=== PATIENT | female | born 1970 | race Caucasian/White ===

== ENCOUNTER 2021-06-20 13:32 | Outpatient (RCR) | payer MEDICARE, SELFPAY ==
--- NOTE | 2021-06-20 14:31 | PCPTNOTE ---
pt to dept for PT evaluation. She has an open wound on both legs: removed marla wrap from R LE: R dorsum of foot wound ~ distal 1/2, superficial and red, with drainage over marla wrap along lower leg and top foot; wrap was too tight and left indentations on her leg. pt stated wound over L calf--was not viewed by PT, had marla wrap over lower leg. Education to pt: issued lymphedema handout and discussed basics of PT lymphedema treatment. Discussed with pt Plan to HOLD PT until wounds are healed. Issued my name and number to pt to call for any questions, and when healed, to call for initial evaluation appt; Called Dr office and left a message about holding PT until wounds are healed.
== END 2021-09-03 11:15 | disposition home or self-care (01) ==
LOC: ANHPT 13:32
PROVIDERS: PCP Podiatrist Foot & Ankle Surgery; Visit Provider Podiatrist Foot & Ankle Surgery
DX: I87.311 Chronic venous hypertension (idiopathic) with ulcer of right lower extremity (principal)
CPT/HCPCS: 99199

== ENCOUNTER 2024-09-09 15:59 | Inpatient (IN) | payer MEDICARE, SELFPAY ==
[2024-09-09] VITALS (16 sets, daily range): BP systolic 79–121; BP diastolic 21–77; PULSE 86–130; RESP 16–24; TEMP 37.9; O2SAT 96–100
--- NOTE | ~2024-09-09 | XR_ITS ---
EXAMINATION: XR tibia fibula RT 2V DATE: 09/09/2024 20:02 INDICATION: Right lower leg osteomyelitis. TECHNIQUE: 2 views of right tibia and fibula on 3 radiographs were obtained. COMPARISON: None. FINDINGS: Alignment is normal. No fracture. There is severe right knee osteoarthritis. There is mild midfoot osteoarthritis. IMPRESSION: 1. No evidence of osteomyelitis. 2. Polyarticular osteoarthritis. Reviewed, dictated and finalized at location A. WORK SUPERVISOR
--- NOTE | ~2024-09-09 | XR_ITS ---
EXAMINATION: XR foot LT 2V DATE: 09/09/2024 20:02 INDICATION: Left foot osteomyelitis. TECHNIQUE: 2 views of left foot were obtained. COMPARISON: None. FINDINGS: Bone alignment is normal. No fracture. There is mild osteoarthritis of first metatarsophala ngeal joint and some of the interphalangeal joints and midfoot joints. There are enthesophytes at the posterior and plantar aspects of calcaneal tuberosity. IMPRESSION: 1. No evidence of osteomyelitis. 2. Mild polyarticular osteoarthritis. Reviewed, dictated and finalized at location A. TS ATHLETIC TRAINER
--- NOTE | ~2024-09-09 | CT_ITS ---
EXAMINATION: CT chest abdomen pelvis wo con DATE: 09/09/2024 18:43 INDICATION: Infection. TECHNIQUE: Computed tomography (CT) of the chest, abdomen, and pelvis was performed without intraveno us contrast. Automated exposure control and iterative reconstruction technique were employed. The dos e-length product was 2188.37 mGy-cm. COMPARISON: CT abdomen and pelvis 09/03/2019 FINDINGS: CHEST CT: The lungs demonstrate mild atelectasis. No pleural effusion. The heart size is normal. There are sidra nary artery calcifications. No pericardial effusion. There is mild thoracic spondylosis. ABDOMEN/PELVIS CT: There is diffuse hepatic steatosis. There are changes of cholecystectomy. The spleen, pancreas, adren al glands, and kidneys are normal. There is no urolithiasis. There is diverticulosis of the colon wit hout evidence of diverticulitis. There are changes of appendectomy. There is mild aortocaval, right c ommon and external iliac, and right inguinal lymphadenopathy. There is no ascites. There is mild lumb ar spondylosis. IMPRESSION: 1. Diffuse hepatic steatosis. 2. Mild retroperitoneal and right pelvic lymphadenopathy, likely reactive. Reviewed, dictated and finalized at location A. LEVELER
--- NOTE | ~2024-09-09 | XR_ITS ---
EXAMINATION: XR foot RT 2V DATE: 09/09/2024 20:02 INDICATION: Osteomyelitis. TECHNIQUE: 2 views of right foot were obtained. COMPARISON: None. FINDINGS: Alignment is normal. No fracture. There is mild osteoarthritis of first metatarsophalangeal joint and some of the interphalangeal joints and midfoot joints. There are enthesophytes at the post erior and plantar aspects of calcaneal tuberosity. IMPRESSION: 1. No evidence of osteomyelitis. 2. Mild polyarticular osteoarthritis. Reviewed, dictated and finalized at location A. ICAL REHABILITATION COORDINATOR
--- NOTE | ~2024-09-09 | XR_ITS ---
EXAMINATION: XR tibia fibula LT 2V DATE: 09/09/2024 20:02 INDICATION: Left lower leg osteomyelitis. TECHNIQUE: 2 views of left tibia and fibula on 3 radiographs were obtained. COMPARISON: None. FINDINGS: Bone alignment is normal. No fracture. There is severe left knee osteoarthritis. There is m ild ankle joint osteoarthritis. IMPRESSION: 1. No evidence of osteomyelitis. 2. Polyarticular osteoarthritis. Reviewed, dictated and finalized at location A. OR BRANCH MANAGER
--- NOTE | ~2024-09-09 | XR_ITS ---
EXAMINATION: XR chest 1V portable DATE: 09/09/2024 16:32 INDICATION: Cough. Dyspnea. TECHNIQUE: A single frontal view of the chest was obtained on 2 radiographs. COMPARISON: CT abdomen and pelvis 09/03/2019 FINDINGS: Sensitivity is decreased by obesity. There is chronic mild elevation of right hemidiaphragm . No pneumonia, pleural effusion, or pneumothorax. Cardiomegaly is noted. IMPRESSION: 1. Cardiomegaly. Reviewed, dictated and finalized at location A. HEN ASSISTANT IMPRESSION: 1. Cardiomegaly.
--- OUTSIDE RECORDS SUMMARY | 2024-09-09 16:02 | XMS_ITS | Continuity of Care Document ---
Author Organization [facility] Octaviano TEJADA (Adult Med) Address [address] [place] [address] Care Team Providers Care Pattern Maker Name Role Phone ELLIOTT SHEN OTHER MEGAN CAM Primary Care Provider Unavailabl e Assessment No assessment recorded. Plan of Treatment Reminders Order Date Submit Date Provider Last Modified By Organization Details Last Modified Time Details Appointments ANY 30 2024 02:30P M Megan Cam MD Not available Not available Not available Lab CMP, serum or plasma 2023 024 [facility], [address] [place] [address], [address], [place], [address], 06/15/2024 09:03:21 urinalysi s macro (dipstick ) panel, urine 2023 024 [facility], [address], [address], [place], [address], 06/15/2024 09:03:21 Referral None recorded. Procedures None recorded. Surgeries None recorded. Imaging XR, knee 2023 024 [facility] ([facility]), [address] [place], [address], 06/29/2024 17:45:35 Medication Orders None recorded. Patient TargetsNo targets recorded. Patient InstructionsNo instructions recorded. Reason for Referral None Reported. Results Created Date Observation Date Name Description Value Unit Range Abnormal Flag Note LastModifiedBy Organization Detail LastModifiedTime 06/22/2006/20/2024 XR, chest No observ ation record ed. [facility] () [address] [place], [address], 06/29/2024 09:55:00 06/29/20 24 06/29/2024 XR, knee No observ ation record ed. [facility] [address] [place], [address], 06/30/2024 10:41:14 Result Notes None recorded. Problems Name Problem SNOMED Code Status Onset Date Resolution Date Notes Provider Name and Address Organization Details Recorded Time Diabetes mellitus 84049962 Active 2018 Not Available [facility] 4 02:12:23 [place] - lesion 758358509 Active Not Available [facility] 4 02:12:23 Essential hypertension 75711913 Active Not Available [facility] 4 02:12:23 Chronic obstructive pulmonary disease 52242769 Active Not Available [facility] 4 02:12:23 Tobacco dependence syndrome 51481961 Active Not Available [facility] 4 02:12:23 Morbid obesity 147000260 Active Not Available [facility] 4 02:12:23 Hyperglycemia 92834526 Active Not Available [facility] 4 02:12:23 Metabolic syndrome X 647015329 Active Not Available [facility] 4 02:12:23 Acute bronchitis 47958393 Active Not Available [facility] 4 02:12:22 Postoperative nausea 95433603 Active Not Available [facility] 4 02:12:23 Edema of lower extremity 311644610 Active Not Available [facility] 4 02:12:22 Sleep apnea 28873191 Active Not Available [facility] 4 02:12:23 Calculus of kidney and ureter 075806219 Active Not Available [facility] 4 02:12:23 Notes:Some problems listed i n Documents: #[id number], #[id number], #[id number] could not be added to this patient's chart. Please review these documents and add these problems to the patient's chart manually as needed. Problem Notes None recorded. Procedures Surgical History Date Name Laterality Status Provider Name and Address Organization Details Recorded Time Tonsillectomy completed Errol Heart [facility] 02/07/2015 11:21:42 Dilation and Curettage completed Er[facility] 02/07/2015 11:21:42 Diagnostic colonoscopy completed Errol Heart [facility] 02/07/2015 12:27:38 Imaging Results None recorded. Procedure Notes None recorded. Medical Equipment None Reported. Allergies Allergen ID Allergen Name Allergen Category Reaction Reaction Severity Criticality Documentation Date Start Date Code Code System Note Provider Name and Address Organization Details Recorded Time 017032 erythromy preston medicatio n anaphylax is Not available Not available 02/18/2019 4053 RxNorm ARON Vo, [facility] 9 15:54:34 482879 Substance with sulfonami de structure and antibacte rial mechanism of action (substanc e) medicatio n Not available Not available Not available 02/18/2019 18472 8003 SNOMED ARON Vo, [facility] 9 15:56:14 982972 ciproflox acin medicatio n Not available Not available Not available 02/18/2019 2551 RxNorm ARON Vo, [facility] 9 15:57:20 855210 atorvasta tin medicatio n muscle cramps Not available Not available 07/18/2021 53734 RxNorm ARON Vo, [facility] 1 14:44:01 258220 glipizide medicatio n rash Not available Not available 04/26/20242022 4821 RxNorm Megan Cam MD Attn: Chad cedillo,[address] [place], [address] [place] [address] 4 16:40:00 47895 Erythroci n medicatio n anaphylax is Not available Not available 03/21/2015 97705 3 RxNorm ARON Vo, [facility] 9 15:54:44 Medications Name Sig Start Date Stop Date Status Note LastModified by Organization Details LastModified Time Prescript ion - Prior Authoriza tion Request 11/16 completed Not Available Not Available Not Available losartan 50 mg tablet Take 1 tablet every day by oral route for 30 days. 03/28 completed Not Available Not Available Not Available cyclobenz aprine 10 mg tablet Take 1 tablet as needed by oral route at bedtime for 30 days. 02/16 completed Not Available Not Available Not Available amoxicill in 500 mg capsule 03/28 completed Not Available Not Available Not Available furosemid e 40 mg tablet TAKE 1 TABLET BY MOUTH EVERY DAY DIRECTED 04/26 completed Not Available Not Available Not Available fluconazo le 100 mg tablet 09/06 completed Not Available Not Available Not Available terbinafi ne HCl 1 % topical cream 09/14 completed Not Available Not Available Not Available metformin 500 mg tablet TAKE 1 TABLET BY MOUTH TWICE DAILY AFTER MEALS 08/16 completed Not Available Not Available Not Available terconazo le 0.4 % vaginal cream 09/14 completed Not Available Not Available Not Available Qvar 80 mcg/actua tion Metered Aerosol oral inhaler 2 puffs twice daily. 03/28 completed Not Available Not Available Not Available prednison e 10 mg tablet TAKE 1 TABLET BY MOUTH EVERY OTHER DAY 04/26 completed Not Available Not Available Not Available doxycycli ne hyclate 100 mg capsule TAKE 1 CAPSULE BY MOUTH TWICE DAILY 09/06 completed Not Available Not Available Not Available atorvasta tin 20 mg tablet TAKE 1 TABLET BY MOUTH EVERY DAY AT DINNER 07/18 completed Not Available Not Available Not Available Depo-Medr ol 40 mg/mL suspensio n for injection Injectio n 1 ML IM 11/06 completed Not Available Not Available Not Available loperamid e 2 mg capsule 11/16 completed Not Available Not Available Not Available trazodone 50 mg tablet Take 1 tablet every day by oral route as directed for 30 days. 09/14 completed Not Available Not Available Not Available cetirizin e 10 mg tablet TAKE 1 TABLET BY MOUTH FOUR TIMES DAILY NEEDED FOR ITCHING 04/26 completed Not Available Not Available Not Available cefpodoxi me 200 mg tablet 02/18 completed Not Available Not Available Not Available indapamid e 2.5 mg tablet TAKE 1 TABLET BY MOUTH EVERY DAY 02/15 completed Not Available Not Available Not Available glyburide 5 mg tablet TAKE 1 TABLET BY MOUTH EVERY DAY WITH MEAL 08/12 completed Not Available Not Available Not Available ibuprofen 800 mg tablet 02/16 completed Not Available Not Available Not Available metoprolo l succinate ER 50 mg tablet,ex tended release 24 hr 10/13 completed Not Available Not Available Not Available hydrocodo ne 5 mg-acetam inophen 325 mg tablet TAKE 1 TABLET BY MOUTH EVERY 6 HOURS NEEDED FOR PAIN FOR UP TO 3 DAYS. USE SPARINGL Y active Not Available Not Available No t Available ondansetr on HCl 8 mg tablet TAKE 1 TABLET BY MOUTH EVERY 8 HOURS NEEDED 04/26 completed Not Available Not Available Not Available metronida zole 0.75 % (37.5 mg/5 gram) vaginal gel 09/14 completed Not Available Not Available Not Available ondansetr on HCl 4 mg tablet TAKE 2 TABLETS BY MOUTH TWICE DAILY FOR 5 DAYS NEEDED 04/26 completed Not Available Not Available Not Available glipizide 10 mg tablet TAKE 1 TABLET BY MOUTH EVERY DAY 11/06 completed Not Available Not Available Not Available prednison e 20 mg tablet 02/18 completed Not Available Not Available Not Available metoprolo l succinate ER 100 mg tablet,ex tended release 24 hr TAKE 1 TABLET BY MOUTH EVERY DAY 2023 active Not Available Not Available Not Avai lable clobetaso l 0.05 % topical cream 04/26 completed Not Available Not Available Not Available clindamyc in HCl 150 mg capsule Take 1 capsule every 6 hours by oral route after meals for 7 days. 03/28 completed Not Available Not Available Not Available pioglitaz one 45 mg tablet 09/14 completed Not Available Not Available Not Available acetamino phen 300 mg-codein e 30 mg tablet TAKE 1 TABLET BY MOUTH TWICE DAILY FOR 7 DAYS NEEDED 05/19 completed Not Available Not Available Not Available ciproflox acin 250 mg tablet 02/18 completed Not Available Not Available Not Available ciproflox acin 500 mg tablet TAKE 1 TABLET BY MOUTH TWICE DAILY X 10 DAYS. 05/22 completed Not Available Not Available Not Available sulfameth oxazole 800 mg-trimet hoprim 160 mg tablet Take 1 tablet every 12 hours by oral route after meals for 10 days. 02/16 completed Not Available Not Available Not Available omeprazol e 40 mg capsule,d elayed release TAKE 1 CAPSULE BY MOUTH TWICE DAILY 04/26 completed not in bag of medicati on brought with @ todays visit -l[facility]is [facility]if[facility] 04/26/24 Not Available Not Available Not Available tramadol 50 mg tablet TAKE 1 TABLET BY MOUTH EVERY 12 HOURS NEEDED active Not Available Not Available No t Available triamcino lone acetonide 0.1 % topical cream APPLY A THIN LAYER TO THE AFFECTED AREA(S) BY TOPICAL ROUTE 2 TIMES PER DAY 04/26 completed Not Available Not Available Not Available ondansetr on 8 mg disintegr ating tablet Place 1 tablet by translin gual route as needed for 2 days. 02/18 completed Not Available Not Available Not Available warfarin 4 mg tablet 02/18 completed Not Available Not Available Not Available warfarin 3 mg tablet 09/14 completed Not Available Not Available Not Available ketorolac 10 mg tablet 02/18 completed Not Available Not Available Not Available meloxicam 7.5 mg tablet 02/16 completed Not Available Not Available Not Available oxycodone -acetamin ophen 5 mg-325 mg tablet 03/28 completed Not Available Not Available Not Available magnesium oxide 400 mg (241.3 mg magnesium ) tablet TAKE 1 TABLET BY MOUTH TWICE DAILY 2023 active Not Available Not Available Not Avai lable tamsulosi n 0.4 mg capsule 07/13 completed Not Available Not Available Not Available linezolid 600 mg tablet active Not Available Not Available Not Available dicyclomi ne 20 mg tablet TAKE 1 TABLET BY MOUTH EVERY 6 HOURS NEEDED 04/26 completed not taking Not Available Not Available Not Available phenazopy ridine 100 mg tablet 07/13 completed Not Available Not Available Not Available baclofen 10 mg tablet TAKE 1 TABLET BY MOUTH TWICE DAILY DIRECTED active Not Available Not Available No t Available doxycycli ne monohydra te 100 mg capsule TAKE 1 CAPSULE BY MOUTH TWICE DAILY 04/26 completed Not Available Not Available Not Available prednison e 2.5 mg tablet TAKE 1 TABLET BY MOUTH EVERY OTHER DAY 09/06 completed Not Available Not Available Not Available cephalexi n 500 mg capsule TAKE ONE CAPSULE BY MOUTH THREE TIMES DAILY FOR 10 DAYS 04/26 completed Not Available Not Available Not Available metformin 1,000 mg tablet Take 1 tablet twice a day by oral route as directed for 30 days. 09/14 completed Not Available Not Available Not Available neomycin- polymyxin -dexameth 3.5 mg/mL-10, 000 unit/mL-0 .1% eye drops SHAKE LIQUID AND INSTILL 1 DROP IN BOTH EYES EVERY 2 HOURS WHILE AWAKE FOR 10 DAYS 04/26 completed Not Available Not Available Not Available nystatin 100,000 unit/gram topical cream APPLY TOPICALL Y TO THE AFFECTED AREA TWICE DAILY 06/28 completed Not Available Not Available Not Available lisinopri l 10 mg tablet TAKE 1 TABLET BY MOUTH EVERY DAY 2023 active Not Available Not Available Not Avai lable lidocaine 5 % topical patch APPLY 1 PATCH TOPICALL Y TO THE SKIN DAILY. LEAVE ON MOST PAINFUL AREA FOR UP TO 12 HOURS active Not Available Not Available No t Available warfarin 5 mg tablet 09/14 completed Not Available Not Available Not Available progester one micronize d 200 mg capsule 05/13 completed Not Available Not Available Not Available gabapenti n 300 mg capsule Take 1 capsule 3 times a day by oral route as directed for 30 days. 05/13 completed Not Available Not Available Not Available gentamici n 0.1 % topical cream 05/13 completed Not Available Not Available Not Available bumetanid e 1 mg tablet one tab po q d 2023 active Not Available Not Available Not Avai lable monteluka st 10 mg tablet TAKE 1 TABLET BY MOUTH EVERY NIGHT AT BEDTIME 04/26 completed Not Available Not Available Not Available hydrochlo rothiazid e 25 mg tablet 03/28 completed Not Available Not Available Not Available mupirocin 2 % topical ointment APPLY A SMALL AMOUNT TO THE AFFECTED AREA BY TOPICAL ROUTE 3 TIMES PER DAY 10/13 completed Not Available Not Available Not Available furosemid e 20 mg tablet Take 1 tablet every day by oral route as needed for 30 days. 11/24 completed Not Available Not Available Not Available ergocalci ferol (vitamin D2) 1,250 mcg (50,000 unit) capsule 10/13 completed Not Available Not Available Not Available Cheratuss in AC 10 mg-100 mg/5 mL oral liquid Take 10 mL every 6 hours by oral route as needed for 5 days. 03/28 completed Not Available Not Available Not Available lisinopri l 10 mg-hydroc hlorothia zide 12.5 mg tablet TAKE 1 TABLET BY MOUTH EVERY DAY 10/13 completed Not Available Not Available Not Available levofloxa preston 500 mg tablet 07/13 completed Not Available Not Available Not Available methylpre dnisolone 4 mg tablets in a dose pack 03/28 completed Not Available Not Available Not Available albuterol sulfate HFA 90 mcg/actua tion aerosol inhaler INHALE 2 PUFFS BY MOUTH EVERY 4 HOURS NEEDED FOR RESCUE active Not Available Not Available No t Available pioglitaz one 30 mg tablet TAKE 1 TABLET BY MOUTH EVERY DAY DIRECTED 2023 active Not Available Not Available Not Avai lable hydroxyzi ne HCl 10 mg tablet active Not Available Not Available No t Available ondansetr on 4 mg disintegr ating tablet DISSOLVE 1 TABLET ON THE TONGUE EVERY 8 HOURS NEEDED FOR NAUSEA OR VOMITING active Not Available Not Available No t Available cefdinir 300 mg capsule TAKE 1 CAPSULE BY MOUTH TWICE DAILY 09/06 completed Not Available Not Available Not Available metformin ER 500 mg tablet,ex tended release 24 hr Take 1 tablet every day by oral route for 90 days. 03/28 completed Not Available Not Available Not Available doxycycli ne hyclate 100 mg tablet TAKE 1 TABLET BY MOUTH EVERY DAY 2023 active Not Available Not Available Not Avai lable naproxen 500 mg tablet Take 1 tablet twice a day by oral route after meals for 30 days. 02/18 completed Not Available Not Available Not Available metoclopr amide 10 mg tablet TAKE 1 TABLET BY MOUTH TWICE DAILY DIRECTED 04/26 completed Not Available Not Available Not Available amoxicill in 875 mg-potass ium clavulana te 125 mg tablet TAKE 1 TABLET BY MOUTH EVERY 12 HOURS FOR 10 DAYS 09/06 completed Not Available Not Available Not Available amoxicill in 500 mg-potass ium clavulana te 125 mg tablet Take 1 tablet every 12 hours by oral route with meals for 10 days. 03/28 completed Not Available Not Available Not Available Benadryl 25 mg capsule Take 2 capsules 6 times a day by oral route as needed for 10 days. 03/28 completed Not Available Not Available Not Available Alcohol Prep Pads APPLY 1 PAD EVERY DAY TOPICALL Y TO THE AFFECTED AREA DIRECTED FOR 30 DAYS active Not Available Not Available No t Available nitrofura ntoin monohydra te/macroc rystals 100 mg capsule 05/13 completed Not Available Not Available Not Available Calcium 600 + D(3) 600 mg-5 mcg (200 unit) tablet Take 2 tablets every day by oral route as directed for 30 days. 11/16 completed Not Available Not Available Not Available Oysco 500/D 500 mg-5 mcg (200 unit) tablet TAKE 2 TABLETS BY MOUTH EVERY DAY 2023 active Not Available Not Available Not Avai lable Symbicort 160 mcg-4.5 mcg/actua tion HFA aerosol inhaler Inhale 2 puffs twice a day by inhalati on route as directed for 30 days. 09/14 completed Not Available Not Available Not Available diclofena c 1 % topical gel active Not Available Not Available Not Available Creon 6,000-19, 000-30,00 0 unit capsule,d elayed release TAKE 2 CAPSULES BY MOUTH THREE TIMES DAILY WITH MEALS 02/15 completed Not Available Not Available Not Available aloglipti n 25 mg tablet TAKE 1 TABLET BY MOUTH TWICE DAILY WITH MEALS 04/26 completed not taking Not Available Not Available Not Available Jardiance 10 mg tablet one tab po q d 2023 active Not Available Not Available Not Avai lable Contrave 8 mg-90 mg tablet,ex tended release Take 2 tablets twice a day by oral route as directed for 30 days. 11/24 completed Not Available Not Available Not Available niacinami de 500 mg capsule Take 1 tablet by mouth three times daily active Not Available Not Available No t Available Accu-Chek Guide test strips USE TO TEST BLOOD SUGAR DAILY active Not Available Not Available No t Available Accu-Chek Guide Me Glucose Meter DIRECTED TO TEST BLOOD SUGAR active Not Available Not Available No t Available OneTouch Delica Plus Lancet 33 gauge USE 1 LANCET TO TEST BLOOD SUGAR DAILY DIRECTED active Not Available Not Available No t Available Klayesta 100,000 unit/gram topical powder APPLY TO THE AFFECTED AREA TWICE DAILY active Not Available Not Available No t Available Vitals Date Recorded Body height Body mass index (BMI) Body weight Oxygen saturation Oxygen saturation in Arterial blood by Pulse oximetry Inhaled oxygen flow rate Heart rate Systolic blood pressure Diastolic blood pressure Provider Name and Address Organization Details Last Updated DateTime 4 156.21 cm 77.5 kg/m2 482726. 02 g 99 % 99 % 4 L/min 80 /min 128 mm[Hg] 68 mm[Hg] Marybeth Ayon [facility] 4 12:33:22 Social History Question Answer Notes LastModified by Organizat ion Details LastModified Time Tobacco Smoking Status Former Smoker patient quit 7years ago [facility] - [facility] 04/26/2024 14:54:58 Do You Have An Advance Directive? No Information not available 03/08/2024 What Is Your Level Of Alcohol Consumption? None Information not available 08/19/2023 Are You Blind Or Do You Have Difficulty Seeing? No Information not available 08/19/2023 What Is Your Level Of Caffeine Consumption? Heavy Information not available 08/19/2023 Are You Currently Employed? No Information not available 08/19/2023 Are You Deaf Or Do You Have Serious Difficulty Hearing? No Information not available 08/19/2023 What Type Of Diet Are You Following? REGULAR Information not available 08/19/2023 What Is The Highest Grade Or Level Of School You Have Completed Or The Highest Degree You Have Received? [id number] Information not available 08/19/2023 Are There Any Guns Present In Your Home? No Information not available 08/19/2023 In The Past 7 Days, How Many Days Did You Exercise? 0 Information not available 11/25/2023 In The Past 7 Days, How Much Pain Have You Clayton? Some Legs Information not available 11/25/2023 In General, Would You Say You Health Is: Good Information not available 11/25/2023 How Would You Describe The Condition Of Your Mouth And Teeth- Including False Teeth Or Dentures? Poor Information not available 11/25/2023 Each Night, How Many Hours Of Sleep Do You Get? 6 Information not available 11/25/2023 Has Anyone Ever Told You That You Snore? Yes Information not available 11/25/2023 In The Past 7 Days, How Often Have You Clayton Sleepy In The Daytime? Usually Information not available 11/25/2023 # Alcohol Drinks Per Week 0 Information not available 11/25/2023 Do You Have A Medical Power Of Make Up Operator Helper? No Information not available 03/08/2024 What Was The Date Of Your Most Recent Tobacco Screening? 09/06/2024 Information not available 09/06/2024 What Is Your Relationship Status? Domestic Partner Information not available 08/19/2023 Do You Use Your Seat Belt Or Car Seat Routinely? No Information not available 08/19/2023 Do You Have Smoke And Carbon Monoxide Detectors In Your Home? Yes Information not available 08/19/2023 Do You Feel Stressed (tense, Restless, Nervous, Or Anxious, Or Unable To Sleep At Night)? [id number] Information not available 08/19/2023 Do You Use Any Illicit Or Recreational Drugs? No Information not available 08/19/2023 Do You Use Sunscreen Routinely? No Information not available 08/19/2023 Has Tobacco Cessation Counseling Been Provided? Yes Information not available 06/28/2024 On What Date Was Tobacco Cessation Counseling Provided? 09/06/2024 Information not available 09/06/2024 How Many Years Have You Smoked Tobacco? 28 [email or web address] Information not available 02/07/2015 Sex: Female Functional Status Question Answer Note LastModified by Organizat ion Details LastModified Time Are you able to care for yourself? Yes Information not available 08/19/2023 What is your exercise level? Occasional Information not available 08/19/2023 Mental Status None recorded. Family History Relationship Description Onset Age of this Age Resolved Age Notes LastModified by Organization Details LastModified Time Mother Diabetes mellitus [email or web address] Not available 03/21 13:02:13 Mother Heart disease [email or web address] Not available 03/21 13:02:13 Mother Hypertensive disorder [email or web address] Not available 03/21 13:02:13 Father Alcohol abuse [email or web address] Not available 03/21 13:02:13 Father Diabetes mellitus [email or web address] Not available 03/21 13:02:13 Father Heart disease [email or web address] Not available 03/21 13:02:13 Father Hypertensive disorder [email or web address] Not available 03/21 13:02:13 Notes:Mother (Ovarian Cancer ) Medical History Condition Response High Blood Pressure Y Asthma Y Allergies Y Gynecological History Statement/Question Response Date of LMP 01/12/2017 Obstetrics History GPAL:G 0 P 0 0 0 0 Immunizations Vaccine Type Date Status Note Provider Nam e and Address Organization Details Recorded Time Hep A, adult 12/19/2009 completed [place] [facility] 04/26/2024 14:59:02 Hep A, adult 07/10/2010 completed [place] - [facility] 04/26/2024 14:59:02 Past Encounters Encounter ID Performer Location Encounter Start Date Encounter Closed Date Diagnosis/Indication Diagnosis SNOMED-CT Code Diagnosis ICD10 Code [id number] MD Octaviano Lewis (Adult Med) [address] [place] [phone] 06/11/2024 12:03:36 06/15/2024 16:11:27 Type 2 diabetes mellitus 14948065 E11.9 Pain of ri ght knee joint 1435942753 69014 M25.561 Vertigo 006054747 R42 Health Concerns Section Related Observation LastModified by Organization Detai ls LastModified Time None Recorded Concern Status LastModified by Organization Details LastModified Time None Recorded Payers Encounter Date Sequence Insurance Name Policy Number Policy Salazar Covered Member ID Salazar Member ID Guarantor Name 06/11/[address] [facility] (MEDICARE REPLACEMENT/AD VANTAGE - HMO) [id number] Susan Mo [id number] Susan Mo 06/11/2024 2 [place] WHEN MEDICARE OR MEDICARE REPLACEMENT PRIMARY) Melody Mo [id number] Susan Mo Notes Date Note Type Note Provider Name and Address Organization Details Recorded Time 06/11/2024 text/html follow up, still having the dizziness but a little better, was never called for therapy so has not had therapy yet, diabetes not well controlled, family service worker talked about taking her off the pioglitazone and putting her on Jardiance due to her lower extremity swelling, sees gastrologist for nausea, is under going work up, trying to find someone who can go EGD, wants to get nausea controlled before starts another medicine that might aggravate it, received pumps for legs, swelling has went down, right knee aches, wound care gave her Tramadol, feels the right leg pain may be related to irritation from the unna boot, the Tramadol does not help much, was taking baclofen before and it helped the same as Tramadol, nothing helps much Megan Cam MD Attn: Accounting[address] [facility], [place], [address], [place] [facility] 06/12/2024 10:18:07 OBGyn Episode No OBEpisode recorded.
--- OUTSIDE RECORDS SUMMARY | 2024-09-09 16:02 | XMS_ITS | Continuity of Care Document ---
Author Organization [facility] Octaviano TEJADA (Adult Med) Address [address] [place] [address] Care Team Providers Care Tow Motor Driver Name Role Phone ELLIOTT SHEN OTHER MEGAN CAM Primary Care Provider Unavailabl e Assessment Encounter Date Assessment Date Assessment LastModified by Organization Details LastModified Time 06/28/2024 06/28/2024 Due for mammogram. Discuss at follow up. Follow up on Cologuard. [email or web address] Not available 06/28/2024 12:04:52 Plan of Treatment Reminders Order Date Submit Date Provider Last Modified By Organization Details Last Modified Time Details Appointments ANY 2024 02:30P Warner Cam MD Not available Not available Not available Lab BMP, serum or plasma 2023 024 [facility], [address] [place] [address], [address], [place], [address], 06/29/2024 06:18:53 culture, urine 2023 024 [facility], [address] [place] [address], [address], [place], [address], 06/30/2024 07:15:29 Referral None recorded. Procedures None recorded. Surgeries None recorded. Imaging None recorded. Medication Orders baclofen 10 mg tablet 2023 024 [id number] #[id number], [address], [place], [place], [id number], 06/28/2024 12:02:07 Patient TargetsNo targets recorded. Patient InstructionsNo instructions recorded. Reason for Referral None Reported. Results Created Date Observation Date Name Description Value Unit Range Abnormal Flag Note LastModifiedBy Organization Detail LastModifiedTime 06/22/20 24 06/20/2024 XR, chest No observ ation record ed. joaquin Brumfield () [address] [place], [address], 06/29/2024 09:55:00 06/29/20 24 06/29/2024 XR, knee No observ ation record ed. [facility] [address] [place], [address], 06/30/2024 10:41:14 Result Notes None recorded. Problems Name Problem SNOMED Code Status Onset Date Resolution Date Notes Provider Name and Address Organization Details Recorded Time Diabetes mellitus 59205276 Active 2018 Not Available [facility] 4 02:12:23 [place] - lesion 143132597 Active Not Available [facility] 4 02:12:23 Essential hypertension 56141597 Active Not Available [facility] 4 02:12:23 Chronic obstructive pulmonary disease 80763138 Active Not Available [facility] 4 02:12:23 Tobacco dependence syndrome 25185273 Active Not Available [facility] 4 02:12:23 Morbid obesity 188785525 Active Not Available [facility] 4 02:12:23 Hyperglycemia 63857241 Active Not Available [facility] 4 02:12:23 Metabolic syndrome X 473435763 Active Not Available [facility] 4 02:12:23 Acute bronchitis 52957776 Active Not Available [facility] 4 02:12:22 Postoperative nausea 45608123 Active Not Available [facility] 4 02:12:23 Edema of lower extremity 859563732 Active Not Available [facility] 4 02:12:22 Sleep apnea 48584830 Active Not Available [facility] 4 02:12:23 Calculus of kidney and ureter 600924761 Active Not Available [facility] 4 02:12:23 Notes:Some problems listed i n Documents: #[id number], #[id number], #[id number] could not be added to this patient's chart. Please review these documents and add these problems to the patient's chart manually as needed. Problem Notes None recorded. Procedures Surgical History Date Name Laterality Status Provider Name and Address Organization Details Recorded Time Tonsillectomy completed Errol Heart MA [facility] 02/07/2015 11:21:42 Dilation and Curettage completed Errol Heart MA [facility] 02/07/2015 11:21:42 Diagnostic colonoscopy completed Errol Heart MA [facility] 02/07/2015 12:27:38 Imaging Results None recorded. Procedure Notes None recorded. Medical Equipment None Reported. Allergies Allergen ID Allergen Name Allergen Category Reaction Reaction Severity Criticality Documentation Date Start Date Code Code System Note Provider Name and Address Organization Details Recorded Time 398380 erythromy preston medicatio n anaphylax is Not available Not available 02/18/2019 4053 RxNorm ARON Vo, [facility] 9 15:54:34 914635 Substance with sulfonami de structure and antibacte rial mechanism of action (substanc e) medicatio n Not available Not available Not available 02/18/2019 30950 8003 SNOMED ARON Vo, [facility] 9 15:56:14 223034 ciproflox acin medicatio n Not available Not available Not available 02/18/2019 2551 RxNorm ARON Vo, [facility] 9 15:57:20 569633 atorvasta tin medicatio n muscle cramps Not available Not available 07/18/2021 22071 RxNorm ARON Vo, [facility] 1 14:44:01 019474 glipizide medicatio n rash Not available Not available 04/26/20242022 4821 RxNorm Megan Cam MD Attn: Chad cedillo,[address] [facility], [place], [address] , [facility] 4 16:40:00 52301 Erythroci n medicatio n anaphylax is Not available Not available 03/21/2015 52763 3 RxNorm Errol Heart [place] null, [place] - [facility] 9 15:54:44 Medications Name Sig Start Date [...] Updated DateTime 4 156.21 cm 77.5 kg/m2 677899. 02 g 99 % 99 % 4 L/min 95 /min 122 mm[Hg] 78 mm[Hg] Marybeth Ayon [place] [facility] 4 11:24:13 Social History Question Answer Notes LastModified by Organizat ion Details LastModified Time Tobacco Smoking Status Former Smoker patient quit 7years ago [place], [place] - [facility] 04/26/2024 14:54:58 Do You Have An Advance [...] Or The Highest Degree You Have Received? [id number] Information not available 08/19/2023 Are There Any Guns Present In Your Home? No Information not available 08/19/2023 In The Past 7 Days, How Many Days Did You Exercise? 0 Information not available 11/25/2023 In The Past 7 Days, How Much Pain Have You [place]? Some Legs Information not available 11/25/2023 In [...] Past 7 Days, How Often Have You [place] Sleepy In The Daytime? Usually Information not available 11/25/2023 # Alcohol Drinks Per Week 0 Information not available 11/25/2023 Do You Have A Medical Power Of Header Machine Operator? No Information not available 03/08/2024 What Was [...] Anxious, Or Unable To Sleep At Night)? [id number] Information not available 08/19/2023 Do You Use [...] Hep A, adult 12/19/2009 completed [place] Bhat [place] - [facility] 04/26/2024 14:59:02 Hep A, adult 07/10/2010 completed [place] - [facility] 04/26/2024 14:59:02 Past Encounters Encounter ID Performer Location Encounter Start Date Encounter Closed Date Diagnosis/Indication Diagnosis SNOMED-CT Code Diagnosis ICD10 Code [id number] MD Octaviano [place] (Adult Med) [address] [place] [id number] 06/11/2024 12:03:36 06/15/2024 16:11:27 Type 2 diabetes mellitus 29892465 E11.9 Pain of ri ght knee joint 3991947594 94635 M25.561 Vertigo 198562834 R42 [id number] MD Octaviano [place] (Adult Med) [address] [place] [id number] 06/28/2024 11:03:04 06/29/2024 11:12:25 Pyelonephritis 09701016 N12 Abnormal r enal function 95078221 R94.4 Body mass index 40+ - severely obese 237196556 Z68.45 Type 2 dot betes mellitus 68155191 E11.9 Nausea 091397387 R11.0 Pain of ri ght knee joint 0279325244 84177 M25.561 Essential hypertension 64264271 I10 Chronic ob structive pulmonary disease 33146670 J44.9 Open wound of right lower leg 4897562107 4125816 S81.801D Health Concerns Section Related Observation LastModified by Organization Detai ls LastModified Time None Recorded Concern Status LastModified by Organization Details LastModified Time None Recorded Payers Encounter Date Sequence Insurance Name Policy Number Policy Salazar Covered Member ID Salazar Member ID Guarantor Name 06/28/[address] [facility] (MEDICARE REPLACEMENT/A DVANTAGE - HMO) [id number] Susan Mo [id number] Susan Mo 06/28/2024 2 [place] [facility] PUBLIC AID Melody Mo [id number] Susan Mo Notes Date Note Type Note Provider Name and Address Organization Details Recorded Time 06/28/2024 text/html follow up hospitalization, Friday morning started feeling nauseous, took a nausea pill, one half hour later started throwing up, forty five minutes later threw up again, threw up three times, then called nurse, nurse felt patient sounded short of breath, had just thrown up, directed to go to ER, admitted Friday to Friday, they said she had a bladder infection, had back pain mostly on left side, they treated with IV antibiotics, they were concerned about legs being infected but she said there was no change in her legs, now feeling much better, feels almost back to normal, breathing back to normal, no pain with urination, no back pain, discharged on Cefdinir and doxycycline, completed antibiotics yesterday, did not get x-ray of knee yet, taking Baclofen twice a day for knee, tried Tramadol but it doesn't take the pain away, Tramadol was given by wound care provider, combination of Baclofen and Tumeric seems to work well for knee pain, they feel that part of her knee pain is due to the wound dressing causing pressure at her knee, chronic nausea, last saw GI doctor in February Megan Cam MD Attn: Accounting[address] [place], [address], [place] [facility] 06/28/2024 12:06:30 OBGyn Episode No OBEpisode recorded.
--- OUTSIDE RECORDS SUMMARY | 2024-09-09 16:02 | XMS_ITS | Continuity of Care Document ---
Author Organization [facility] SHEKHAROctaviano (Adult Med) Address [address] [place] [address] Care Team Providers Care Chief Sales Officer Name Role Phone ELLIOTT SHEN OTHER DALILA CAM Primary Care Provider Unavailabl e Assessment No assessment recorded. Plan of Treatment Reminders Order Date Submit Date Provider Last Modified By Organization Details Last Modified Time Details Appointments ANY 30 2024 02:30P M Dalila Cam MD Not available Not available Not available Lab BMP, serum or plasma 2023 024 [facility], [address] [facility], [address], [place], [address], 09/07/2024 08:25:44 Referral home health referral - Would like patient to be switched to 3 L pulsatile O2 and then get O2 sats with activity and at rest. If less than 92% go back to 4L. 2023 024 [facility], [address] [place], [address], 09/06/2024 16:55:22 Procedures None recorded. Surgeries None recorded. Imaging MAMMO, screening , digital, bilateral 2023 024 [facility] (Mammography) , [address], [place], [address], 09/06/2024 16:35:28 Medication Orders Jardiance 10 mg tablet 2023 024 [facility] #30467, [address], [place], [place], [id number], 09/06/2024 16:23:22 pioglitaz one 30 mg tablet 2023 [facility] #41937, [address], [place], [place], [id number], 09/06/2024 16:23:25 Oysco 500/D 500 mg-5 mcg (200 unit) tablet 2023 [facility] #38987, [address] [place], [id number], 09/06/2024 16:23:21 bumetanid e 1 mg tablet 2023 [facility] #09055, [address] [place], [place], [id number], 09/06/2024 16:23:24 magnesium oxide 400 mg (241.3 mg magnesium ) tablet 2023 [facility] #79782, [address] [place], [place], [id number], 09/06/2024 16:23:23 lisinopri l 10 mg tablet 2023 [facility] #28882, [address], [place], [id number], 09/06/2024 16:23:22 metoprolo l succinate ER 100 mg tablet,ex tended release 24 hr 2023 [facility] #39504, [address], [place], [id number], 09/06/2024 16:23:26 Patient TargetsNo targets recorded. Patient InstructionsNo instructions recorded. Reason for Referral Home Health Referral for Chr onic obstructive pulmonary disease Would like patient to be switched to 3 L pulsatile O2 and then get O2 sats with activity and at rest. If less than 92% go back to 4L. Referring Physician: Dalila Cam, Family Medicine, Encounter Date: 09/06/2024 Problems Name Problem SNOMED Code Status Onset Date Resolution Date Notes Provider Name and Address Organization Details Recorded Time Diabetes mellitus 30535533 Active 2018 Not Available [facility] 4 02:12:23 [place] - lesion 509336735 Active Not Available [facility] 4 02:12:23 Essential hypertension 70975119 Active Not Available [facility] 4 02:12:23 Chronic obstructive pulmonary disease 66703755 Active Not Available [facility] 4 02:12:23 Tobacco dependence syndrome 91739346 Active Not Available [facility] 4 02:12:23 Morbid obesity 569705429 Active Not Available [facility] 4 02:12:23 Hyperglycemia 21224389 Active Not Available [facility] 4 02:12:23 Metabolic syndrome X 690608487 Active Not Available [facility] 4 02:12:23 Acute bronchitis 68964227 Active Not Available [facility] 4 02:12:22 Postoperative nausea 73361928 Active Not Available [facility] 4 02:12:23 Edema of lower extremity 409489099 Active Not Available [facility] 4 02:12:22 Sleep apnea 71926983 Active Not Available [facility] 4 02:12:23 Calculus of kidney and ureter 344076066 Active Not Available [facility] 4 02:12:23 Notes:Some problems listed i n Documents: #[id number], #[id number], #[id number] could not be added to this patient's chart. Please review these documents and add these problems to the patient's chart manually as needed. Problem Notes None recorded. Procedures Surgical History Date Name Laterality Status Provider Name and Address Organization Details Recorded Time Tonsillectomy completed Errol Heart [place] - [facility] 02/07/2015 11:21:42 Dilation and Curettage completed Errol Heart MA [facility] 02/07/2015 11:21:42 Diagnostic colonoscopy completed Errol Heart MA [facility] 02/07/2015 12:27:38 Imaging Results None recorded. Procedure Notes None recorded. Medical Equipment None Reported. Allergies Allergen ID Allergen Name Allergen Category Reaction Reaction Severity Criticality Documentation Date Start Date Code Code System Note Provider Name and Address Organization Details Recorded Time 331861 erythromy preston medicatio n anaphylax is Not available Not available 02/18/2019 4053 RxNorm ARON Vo, [facility] 9 15:54:34 936498 Substance with sulfonami de structure and antibacte rial mechanism of action (substanc e) medicatio n Not available Not available Not available 02/18/2019 75120 8003 SNOMED ARON Vo, [facility] 9 15:56:14 722482 ciproflox acin medicatio n Not available Not available Not available 02/18/2019 2551 RxNorm ARON Vo, [facility] 9 15:57:20 212750 atorvasta tin medicatio n muscle cramps Not available Not available 07/18/2021 85709 RxNorm ARON Vo, [facility] 1 14:44:01 791340 glipizide medicatio n rash Not available Not available 04/26/20242022 4821 RxNorm Dalila Cam MD Attn: Chad cedillo,[address] [place], [address] [place] [address] 4 16:40:00 70071 Erythroci n medicatio n anaphylax is Not available Not available 03/21/2015 88728 3 RxNorm ARON Vo, [facility] 9 15:54:44 Medications Name Sig Start Date [...] Details Last Updated DateTime 4 156.21 cm 75.5 kg/m2 320904. 5 g 98 % 98 % 4 L/min 76 /min 120 mm[Hg] 78 mm[Hg] Marybetharun Ayon [place] - [facility] 4 15:08:09 Social History Question Answer Notes LastModified by Organizat ion Details LastModified Time Tobacco Smoking Status Former Smoker patient quit 7years ago Yamini [place] - [facility] 04/26/2024 14:54:58 Do You Have An Advance [...] Or The Highest Degree You Have Received? [id number] Information not available 08/19/2023 Are There Any Guns Present In Your Home? No Information not available 08/19/2023 In The Past 7 Days, How Many Days Did You Exercise? 0 Information not available 11/25/2023 In The Past 7 Days, How Much Pain Have You [place]? Some Legs Information not available 11/25/2023 In [...] Past 7 Days, How Often Have You [place] Sleepy In The Daytime? Usually Information not available 11/25/2023 # Alcohol Drinks Per Week 0 Information not available 11/25/2023 Do You Have A Medical Power Of Rag Baler? No Information not available 03/08/2024 What Was [...] Anxious, Or Unable To Sleep At Night)? [id number] Information not available 08/19/2023 Do You Use [...] Recorded Time Hep A, adult 12/19/2009 completed KARLIE BhatA [place], [place] [facility] 04/26/2024 14:59:02 Hep A, adult 07/10/2010 completed [place] Bhat [place], [place] - [facility] 04/26/2024 14:59:02 Past Encounters Encounter ID Performer Location Encounter Start Date Encounter Closed Date Diagnosis/Indication Diagnosis SNOMED-CT Code Diagnosis ICD10 Code [id number] MD Octaviano [place] (Adult Med) [address] [place] [id number] 09/06/2024 14:41:55 09/08/2024 10:14:03 Screening for malignant neoplasm of breast 208589799 Z12.39 Type 2 dot betes mellitus 58485781 E11.9 Screening for malignant neoplasm of colon 988477515 Z12.11 Laboratory test result abnormal 016736838 R89.9 Chronic ob structive pulmonary disease 62391541 J44.9 Essential hypertension 09837372 I10 Cramp in lower limb 4499 11733 R25.2 Degenerati ve joint disease involving multiple joints 518778938 M15.9 Edema of l ower extremity 888536131 R60.0 Health Concerns Section Related Observation LastModified by Organization Detai ls LastModified Time None Recorded Concern Status LastModified by Organization Details LastModified Time None Recorded Payers Encounter Date Sequence Insurance Name Policy Number Policy Salazar Covered Member ID Salazar Member ID Guarantor Name 09/06/2024 1 [facility] (MEDICARE REPLACEMENT/A DVANTAGE - HMO) [id number] Susan Mo [id number] Susan Mo Notes Date Note Type Note Provider Name and Address Organization Details Recorded Time 09/06/2024 text/html follow up, no concerns or problems, due for mammogram, has Cologuard at home but hasn't done it yet, had colonoscopy in the past and they found out she had irritable bowel, diabetes elevated, getting glucose of 150-170s, history of atrial fib but no heart failure, started needing oxygen after had COVID two years ago, using four Liters but would like to try to get down to three, when turns it to go down to 3L it becomes continuous, has lost weight and is really working on lifestyle changes, when says full she is done and tries to push food away, trying to eat more protein for legs, was recently on antibiotics for leg wound, leg healing well, Dalila Cam MD Attn: Accounting[address] [facility], [place], [address], [facility] 09/06/2024 18:59:54 OBGyn Episode No OBEpisode recorded.
--- OUTSIDE RECORDS SUMMARY | 2024-09-09 16:02 | XMS_ITS | Data Portability ---
Author Organization [facility] Dayday Dumont Address [address] [place] [address] Care Team Providers Care Sliver Lapper Name Role Phone ELLIOTT SHEN OTHER DALILA KITCHEN Primary Care Provider Unavailabl e Assessment Encounter Date Assessment Date Assessment LastModified by Organization Details LastModified Time 04/26/2024 04/26/2024 Reviewed chart. Had skin rash in 10/21 that she believed was from Glipizide started in 08/20 which was discontinued [email or web address] Not available 04/26/2024 16:38:50 06/28/2024 06/28/2024 Due for mammogram. Discuss at follow up. Follow up on Cologuard. [email or web address] Not available 06/28/2024 12:04:52 Plan of Treatment Reminders Order Date Submit Date Provider Last Modified By Organization Details Last Modified Time Details Appointments ANY 30 2024 02:30P Warner Kitchen MD Not available Not available Not available Lab CMP, serum or plasma 2023 024 [facility], [address], [address], [place], [address], 04/28/2024 11:14:34 CBC 2023 024 [facility], [address], [address], [place], [address], 04/28/2024 11:14:35 HbA1c (hemoglob in A1c), blood 2023 024 [facility]OM[facility], [address], [address], [place], [address], 05/03/2024 09:33:02 albumin/c reatinine , mass ratio, urine 2023 024 [facility], [address], [address], [place], [address], 04/28/2024 11:14:32 lipid panel, serum 2023 024 [facility], [address], [address], [place], [address], 04/28/2024 11:14:33 CMP, serum or plasma 2023 024 [facility], [facility][note 3][address], [address], [place], [address], 06/15/2024 09:03:21 urinalysi s macro (dipstick ) panel, urine 2023 024 [facility], [address], [address], [place], [address], 06/15/2024 09:03:21 BMP, serum or plasma 2023 024 [facility], [facility][note 3][address], [address], [place], [address], 06/29/2024 06:18:53 culture, urine 2023 024 [facility], [facility][note 3][address], [address], [place], [address], 06/30/2024 07:15:29 BMP, serum or plasma 2023 024 [facility], [facility][note 3][address], [address], [place], [address], 09/07/2024 08:25:44 Referral home health referral - Would like patient to be switched to 3 L pulsatile O2 and then get O2 sats with activity and at rest. If less than 92% go back to 4L. 2023 [facility], [address] [place], [address], 09/06/2024 16:55:22 Procedures None recorded. Surgeries None recorded. Imaging XR, knee 2023 [facility] ([facility]), [address] [place], [address], 06/29/2024 17:45:35 MAMMO, screening , digital, bilateral 2023 [facility] (M[facility]) , [address], [place], [address], 09/06/2024 16:35:28 Medication Orders baclofen [address] [id number], [address], [place], [place], [id number], 06/28/2024 12:02:07 Jardiance [address] [facility] #[id number], [address], [place], [place], [id number], 09/06/2024 16:23:22 pioglitaz one [address] [facility] #86283, [address], [place], [place], [id number], 09/06/2024 16:23:25 Oysco 500/D 500 mg-5 mcg (200 unit) tablet [address] [facility] #89161, [address], [place], [place], [id number], 09/06/2024 16:23:21 bumetanid e [address] [facility] #23670, [address], [place], [place], [id number], 09/06/2024 16:23:24 magnesium oxide 400 mg (241.3 mg magnesium ) tablet 2023 [facility] #92017, [address], [place], [place], [id number], 09/06/2024 16:23:23 lisinopri l [address] [facility] #96249, [address], [place], [place], [id number], 09/06/2024 16:23:22 metoprolo l succinate ER 100 mg tablet,ex tended release [address] [facility] #44249, [address], [place], [place], [id number], 09/06/2024 16:23:26 Patient TargetsNo targets recorded. Patient Instructions Encounter Date Encounter Id Patient Instructions Last Modified By Organization Details Last Modified Time 04/26/2024 [id number] physical therapy * - please do Urmila maneuver and therapy for BPPV, if you do not do this please let me know [email or web address] Not available 08/31/2024 12:41:57 A healthy lifestyle: care instructions [email or web address] Not available 04/26/2024 16:26:23 Reason for Referral Home Health Referral for Chr onic obstructive pulmonary disease Would like patient to be switched to 3 L pulsatile O2 and then get O2 sats with activity and at rest. If less than 92% go back to 4L. Referring Physician: Dalila Kitchen, Family Medicine, Encounter Date: 09/06/2024 Results Created Date Observation Date Name Description Value Unit Range Abnormal Flag Note LastModifiedBy Organization Detail LastModifiedTime 04/27/20 24 04/28/2024 ALBUM IN/CR EATIN INE RATIO ,URIN E creatinine, urine 163.0 mg/dL notest ab. Not Available [facility] ([facility]) [address] [place], [address], 04/28/2024 11:14:32 04/27/20 24 04/28/2024 ALBUM IN/CR EATIN INE RATIO ,URIN E albumin, urine 22.7 ug/mL notest ab. Not Available [facility] ([facility]) [address] [place], [address], 04/28/2024 11:14:32 04/27/20 24 04/28/2024 ALBUM IN/CR EATIN INE RATIO ,URIN E alb/creat ratio 14 mg/g_ creat 0-29 Elizabeth l: 0 - 29 Moder ately incre ased: 30 - 300 Sever olive incre ased: >300 Not Available [facility] ([facility]) [address] [place], [address], 04/28/2024 11:14:32 04/27/20 24 04/28/2024 LIPID PANEL cholesterol, total 228 mg/dL 100-19 9 above high normal Not Available [facility] ([facility]) [address] [place], [address], 04/28/2024 11:14:33 04/27/20 24 04/28/2024 LIPID PANEL triglyceride s 276 mg/dL 0-149 above high normal Not Available [facility] ([facility]) [address] [place], [address], 04/28/2024 11:14:33 04/27/20 24 04/28/2024 LIPID PANEL HDL cholesterol 34 mg/dL >39 below low normal Not Available [facility] ([facility]) [address] [place], [address], 04/28/2024 11:14:33 04/27/20 24 04/28/2024 LIPID PANEL VLDL cholesterol ashanti 50 mg/dL 5-40 above high normal Not Available [facility] ([facility]) [address] [facility], [place], [address], 04/28/2024 11:14:33 04/27/20 24 04/28/2024 LIPID PANEL LDL chol calc ([facility]) 144 mg/dL 0-99 above high normal Not Available [facility] ([facility]) [address] [place], [address], 04/28/2024 11:14:33 04/27/20 24 04/28/2024 COMP. METAB OLIC PANEL (14) glucose 207 mg/dL 70-99 above high normal Not Available [facility] ([facility]) [address] [place], [address], 04/28/2024 11:14:34 04/27/20 24 04/28/2024 COMP. METAB OLIC PANEL (14) BUN 14 mg/dL 6-24 Not Available [facility] ([facility]) [address] [place], [address], 04/28/2024 11:14:34 04/27/20 24 04/28/2024 COMP. METAB OLIC PANEL (14) creatinine 1.07 mg/dL 0.57-1 .00 above high normal Not Available [facility] ([facility]) [address] [place], [address], 04/28/2024 11:14:34 04/27/20 24 04/28/2024 COMP. METAB OLIC PANEL (14) eGFR 62 mL/mi n/1.7 3 >59 Not Available [facility] ([facility]) [address] [place], [address], 04/28/2024 11:14:34 04/27/20 24 04/28/2024 COMP. METAB OLIC PANEL (14) BUN/creatini ne ratio 13 9-23 Not Available [facility] ([facility]) [address] [facility], [place], [address], 04/28/2024 11:14:34 04/27/20 24 04/28/2024 COMP. METAB OLIC PANEL (14) sodium 140 mmol/ L 134-14 4 Not Available [facility] ([facility]) [address] [facility], [place], [address], 04/28/2024 11:14:34 04/27/20 24 04/28/2024 COMP. METAB OLIC PANEL (14) potassium 4.5 mmol/ L 3.5-5. 2 Not Available [facility] ([facility]) [address] [facility], [place], [address], 04/28/2024 11:14:34 04/27/20 24 04/28/2024 COMP. METAB OLIC PANEL (14) chloride 100 mmol/ L 96-106 Not Available [facility] ([facility]) [address] [facility], [place], [address], 04/28/2024 11:14:34 04/27/20 24 04/28/2024 COMP. METAB OLIC PANEL (14) carbon dioxide, total 25 mmol/ L 20-29 Not Available [facility] ([facility]) [address] [facility], [place], [address], 04/28/2024 11:14:34 04/27/20 24 04/28/2024 COMP. METAB OLIC PANEL (14) calcium 9.1 mg/dL 8.7-10 .2 Not Available [facility] ([facility]) [address] [facility] [place], [address], 04/28/2024 11:14:34 04/27/20 24 04/28/2024 COMP. METAB OLIC PANEL (14) protein, total 7.1 g/dL 6.0-8. 5 Not Available [facility] ([facility]) [address] [place], [address], 04/28/2024 11:14:34 04/27/20 24 04/28/2024 COMP. METAB OLIC PANEL (14) albumin 3.6 g/dL 3.8-4. 9 below low normal Not Available [facility] ([facility]) [address] [place], [address], 04/28/2024 11:14:34 04/27/20 24 04/28/2024 COMP. METAB OLIC PANEL (14) globulin, total 3.5 g/dL 1.5-4. 5 Not Available [facility] ([facility]) [address] [place], [address], 04/28/2024 11:14:34 04/27/20 24 04/28/2024 COMP. METAB OLIC PANEL (14) bilirubin, total 0.4 mg/dL 0.0-1. 2 Not Available [facility] ([facility]) [address] [place], [address], 04/28/2024 11:14:34 04/27/20 24 04/28/2024 COMP. METAB OLIC PANEL (14) alkaline phosphatase 64 IU/L 44-121 Not Available [facility] ([facility] [address] [place] [place], [address], 04/28/2024 11:14:34 04/27/20 24 04/28/2024 COMP. METAB OLIC PANEL (14) AST (SGOT) 42 IU/L 0-40 above high normal Not Available [facility] ([facility] [address] [facility] [place], [address], 04/28/2024 11:14:34 04/27/20 24 04/28/2024 COMP. METAB OLIC PANEL (14) ALT (SGPT) 37 IU/L 0-32 above high normal Not Available [facility] ([facility]) [address] [facility], [place], [address], 04/28/2024 11:14:34 04/27/20 24 04/28/2024 CBC, PLATE LET, NO DIFFE RENTI AL WBC 9.7 x10e3 /uL 3.4-10 .8 Not Available [facility] ([facility]) [address] [facility], [place], [address], 04/28/2024 11:14:35 04/27/20 24 04/28/2024 CBC, PLATE LET, NO DIFFE RENTI AL RBC 4.64 x10e6 /uL 3.77-5 .28 Not Available [facility] ([facility]) [address] [facility], [place], [address], 04/28/2024 11:14:35 04/27/20 24 04/28/2024 CBC, PLATE LET, NO DIFFE RENTI AL hemoglobin 13.7 g/dL 11.1-1 5.9 Not Available [facility] ([facility]) [address] [facility], [place], [address], 04/28/2024 11:14:35 04/27/20 24 04/28/2024 CBC, PLATE LET, NO DIFFE RENTI AL hematocrit 43.3 % 34.0-4 6.6 Not Available [facility] ([facility]) [address] [facility], [place], [address], 04/28/2024 11:14:35 04/27/20 24 04/28/2024 CBC, PLATE LET, NO DIFFE RENTI AL MCV 93 fL 79-97 Not Available [facility] ([facility]) [address] [facility], [place], [address], 04/28/2024 11:14:35 04/27/20 24 04/28/2024 CBC, PLATE LET, NO DIFFE RENTI AL MCH 29.5 pg 26.6-3 3.0 Not Available [facility] ([facility]) [address] [facility], [place], [address], 04/28/2024 11:14:35 04/27/20 24 04/28/2024 CBC, PLATE LET, NO DIFFE RENTI AL MCHC 31.6 g/dL 31.5-3 5.7 Not Available [facility] ([facility]) [address] [facility], [place], [address], 04/28/2024 11:14:35 04/27/20 24 04/28/2024 CBC, PLATE LET, NO DIFFE RENTI AL RDW 14.2 % 11.7-1 5.4 Not Available [facility] ([facility]) [address] [facility], [place], [address], 04/28/2024 11:14:35 04/27/20 24 04/28/2024 CBC, PLATE LET, NO DIFFE RENTI AL platelets 187 x10e3 /uL 150-45 0 Not Available [facility] ([facility]) [address] [facility], [place], [address], 04/28/2024 11:14:35 04/27/20 24 04/28/2024 LUKASZ EN AUTHO RIZAT ION written authorizatio n Kenny Browning en Autho rizat ion Recei tang. Autho rizat ion recei tang from INTER FACE ADD 04-28 Logge d by Óscar Pena an Not Available [facility] ([facility]) [address] [facility], [place], [address], 04/29/2024 06:20:44 04/27/20 24 04/28/2024 HEMOG LOBIN A1C hemoglobin A1C 10.6 % 4.8-5. 6 above high normal Predi abete s: 5.7 - 6.4 Diabe karl: >6.4 Glyce andie contr ol for adult s with diabe karl: <7.0 Not Available [facility] ([facility]) [address] [place], [address], 04/29/2024 06:20:44 06/11/20 24 06/12/2024 COMP. METAB OLIC PANEL (14) glucose 220 mg/dL 70-99 above high normal Not Available [facility] ([facility]) [address] [place], [address], 06/12/2024 08:32:30 06/11/20 24 06/12/2024 COMP. METAB OLIC PANEL (14) BUN 17 mg/dL 6-24 Not Available [facility] ([facility]) [address] [place], [address], 06/12/2024 08:32:30 06/11/20 24 06/12/2024 COMP. METAB OLIC PANEL (14) creatinine 1.17 mg/dL 0.57-1 .00 above high normal Not Available [facility] ([facility]) [address] [place], [address], 06/12/2024 08:32:30 06/11/20 24 06/12/2024 COMP. METAB OLIC PANEL (14) eGFR 56 mL/mi n/1.7 3 >59 below low normal Not Available [facility] ([facility]) [address] [place], [address], 06/12/2024 08:32:30 06/11/20 24 06/12/2024 COMP. METAB OLIC PANEL (14) BUN/creatini ne ratio 15 9-23 Not Available [facility] ([facility]) [address] [place], [address], 06/12/2024 08:32:30 06/11/20 24 06/12/2024 COMP. METAB OLIC PANEL (14) sodium 140 mmol/ L 134-14 4 Not Available [facility] ([facility]) [address] [place], [address], 06/12/2024 08:32:30 06/11/20 24 06/12/2024 COMP. METAB OLIC PANEL (14) potassium 4.5 mmol/ L 3.5-5. 2 Not Available [facility] ([facility]) [address] [facility] [place], [address], 06/12/2024 08:32:30 06/11/20 24 06/12/2024 COMP. METAB OLIC PANEL (14) chloride 101 mmol/ L 96-106 Not Available [facility] ([facility]) [address] [facility] [place], [address], 06/12/2024 08:32:30 06/11/20 24 06/12/2024 COMP. METAB OLIC PANEL (14) carbon dioxide, total 22 mmol/ L 20-29 Not Available [facility] ([facility]) [address] [facility], [place], [address], 06/12/2024 08:32:30 06/11/20 24 06/12/2024 COMP. METAB OLIC PANEL (14) calcium 9.1 mg/dL 8.7-10 .2 Not Available [facility] ([facility]) [address] [facility] [place], [address], 06/12/2024 08:32:30 06/11/20 24 06/12/2024 COMP. METAB OLIC PANEL (14) protein, total 7.2 g/dL 6.0-8. 5 Not Available [facility] ([facility]) [address] [facility] [place], [address], 06/12/2024 08:32:30 06/11/20 24 06/12/2024 COMP. METAB OLIC PANEL (14) albumin 3.5 g/dL 3.8-4. 9 below low normal Not Available [facility] ([facility]) [address] [facility] [place], [address], 06/12/2024 08:32:30 06/11/20 24 06/12/2024 COMP. METAB OLIC PANEL (14) globulin, total 3.7 g/dL 1.5-4. 5 Not Available [facility] ([facility]) [address] [place], [address], 06/12/2024 08:32:30 06/11/20 24 06/12/2024 COMP. METAB OLIC PANEL (14) bilirubin, total 0.4 mg/dL 0.0-1. 2 Not Available [facility] ([facility]) [address] [facility] [place], [address], 06/12/2024 08:32:30 06/11/20 24 06/12/2024 COMP. METAB OLIC PANEL (14) alkaline phosphatase 63 IU/L 44-121 Not Available [facility] ([facility]) [address] [facility] [place], [address], 06/12/2024 08:32:30 06/11/20 24 06/12/2024 COMP. METAB OLIC PANEL (14) AST (SGOT) 36 IU/L 0-40 Not Available [facility] ([facility]) [address] [facility] [place], [address], 06/12/2024 08:32:30 06/11/20 24 06/12/2024 COMP. METAB OLIC PANEL (14) ALT (SGPT) 31 IU/L 0-32 Not Available [facility] ([facility]) [address] [facility] [place], [address], 06/12/2024 08:32:30 06/11/20 24 06/12/2024 MICRO SCOPI C EXAMI NATIO N WBC >30 /hpf 0-5 abnormal Not Available [facility] ([facility]) [address] [facility] [place], [address], 06/12/2024 08:32:31 06/11/20 24 06/12/2024 MICRO SCOPI C EXAMI NATIO N RBC 0-2 /hpf 0-2 Not Available [facility] ([facility]) [address] [facility] [place], [address], 06/12/2024 08:32:31 06/11/20 24 06/12/2024 MICRO SCOPI C EXAMI NATIO N epithelial cells (non renal) >10 /hpf 0-10 abnormal Not Available [facility] ([facility]) [address] [facility], [place], [address], 06/12/2024 08:32:31 06/11/20 24 06/12/2024 MICRO SCOPI C EXAMI NATIO N casts None seen /lpf nonese en Not Available [facility] ([facility]) [address] [facility], [place], [address], 06/12/2024 08:32:31 06/11/20 24 06/12/2024 MICRO SCOPI C EXAMI NATIO N bacteria Many nonese en/few abnormal Not Available [facility] ([facility]) [address] [facility], [place], [address], 06/12/2024 08:32:31 06/11/20 24 06/12/2024 MICRO SCOPI C EXAMI NATIO N yeast Presen t nonese en abnormal Not Available [facility] ([facility]) [address] [facility], [place], [address], 06/12/2024 08:32:31 06/11/20 24 06/12/2024 URINA LYSIS , ROUTI NE specific gravity 1.022 1.005- 1.030 Not Available [facility] ([facility]) [address] [facility], [place], [address], 06/12/2024 08:32:32 06/11/20 24 06/12/2024 URINA LYSIS , ROUTI NE pH 5.5 5.0-7. 5 Not Available [facility] ([facility]) [address] [facility], [place], [address], 06/12/2024 08:32:32 06/11/20 24 06/12/2024 URINA LYSIS , ROUTI NE urine-color YELLOW yellow Not Available [facility] ([facility]) [address] [facility], [place], [address], 06/12/2024 08:32:32 06/11/20 24 06/12/2024 URINA LYSIS , ROU[place] NE appearance TURBID clear abnormal Not Available [facility] ([facility]) [address] [facility], [place], [address], 06/12/2024 08:32:32 06/11/20 24 06/12/2024 URINA LYSIS , RONAL NE WBC esterase 3+ negati ve abnormal Not Available [facility] ([facility]) [address] [facility], [place], [address], 06/12/2024 08:32:32 06/11/20 24 06/12/2024 URINA LYSIS , RONAL NE protein 1+ negati ve/tra ce abnormal Not Available [facility] ([facility]) [address] [facility], [place], [address], 06/12/2024 08:32:32 06/11/20 24 06/12/2024 URINA LYSIS , RONAL NE glucose NEGATI VE negati ve Not Available [facility] ([facility]) [address] [facility], [place], [address], 06/12/2024 08:32:32 06/11/20 24 06/12/2024 URINA LYSIS , ROU[place] NE ketones NEGATI VE negati ve Not Available [facility] ([facility]) [address] [facility], [place], [address], 06/12/2024 08:32:32 06/11/20 24 06/12/2024 URINA LYSIS , RONAL NE occult blood 2+ negati ve abnormal Not Available [facility] ([facility]) [address] [facility], [place], [address], 06/12/2024 08:32:32 06/11/20 24 06/12/2024 URINA LYSIS , ROUTI NE bilirubin NEGATI VE negati ve Not Available [facility] ([facility]) [address] [place], [address], 06/12/2024 08:32:32 06/11/20 24 06/12/2024 URINA LYSIS , ROUTI NE urobilinogen ,semi-qn 0.2 mg/dL 0.2-1. 0 Not Available [facility] ([facility]) [address] [facility], [place], [address], 06/12/2024 08:32:32 06/11/20 24 06/12/2024 URINA LYSIS , ROUTI NE nitrite, urine NEGATI VE negati ve Not Available [facility] ([facility]) [address] [facility], [place], [address], 06/12/2024 08:32:32 06/11/20 24 06/12/2024 URINA LYSIS , ROUTI NE microscopic examination SEE BELOW: Micro scopi c was indic ated and was perfo rmed. Not Available [facility] ([facility]) [address] [place], [address], 06/12/2024 08:32:32 06/15/20 24 06/16/2024 ALBUM IN/CR EATIN INE RATIO ,URIN E creatinine, urine 229.2 mg/dL notest ab. Not Available [facility] ([facility]) [address] [place], [address], 06/16/2024 09:15:17 06/15/20 24 06/16/2024 ALBUM IN/CR EATIN INE RATIO ,URIN E albumin, urine 44.7 ug/mL notest ab. Not Available [facility] ([facility]) [address] [place], [address], 06/16/2024 09:15:17 06/15/20 24 06/16/2024 ALBUM IN/CR EATIN INE RATIO ,URIN E alb/creat ratio 20 mg/g_ creat 0-29 Elizabeth l: 0 - 29 Moder ately incre ased: 30 - 300 Sever olive incre ased: >300 Not Available [facility] ([facility]) [address] [place], [address], 06/16/2024 09:15:17 06/15/20 24 06/18/2024 URINE CULTU RERONAL NE urine culture, routine FINAL REPORT Not Available [facility] ([facility]) [address] [place], [address], 06/18/2024 17:09:52 06/15/20 24 06/18/2024 URINE CULTU RERONAL NE result 1 COMMEN T Mixed uroge nital annika 50,00 0-100 ,000 colon y formi ng units per mL Not Available [facility] ([facility]) [address] [place], [address], 06/18/2024 17:09:52 06/28/20 24 06/29/2024 BASIC METAB OLIC PANEL (8) glucose 205 mg/dL 70-99 above high normal Not Available [facility] ([facility]) [address] [place], [address], 06/29/2024 06:18:53 06/28/20 24 06/29/2024 BASIC METAB OLIC PANEL (8) BUN 17 mg/dL 6-24 Not Available [facility] ([facility]) [address] [place], [address], 06/29/2024 06:18:53 06/28/20 24 06/29/2024 BASIC METAB OLIC PANEL (8) creatinine 1.20 mg/dL 0.57-1 .00 above high normal Not Available [facility] ([facility]) [address] [place], [address], 06/29/2024 06:18:53 06/28/20 24 06/29/2024 BASIC METAB OLIC PANEL (8) eGFR 54 mL/mi n/1.7 3 >59 below low normal Not Available [facility] ([facility]) [address] [place], [address], 06/29/2024 06:18:53 06/28/20 24 06/29/2024 BASIC METAB OLIC PANEL (8) BUN/creatini ne ratio 14 9-23 Not Available [facility] ([facility]) [address] [place], [address], 06/29/2024 06:18:53 06/28/20 24 06/29/2024 BASIC METAB OLIC PANEL (8) sodium 140 mmol/ L 134-14 4 Not Available [facility] ([facility]) [address] [place], [address], 06/29/2024 06:18:53 06/28/20 24 06/29/2024 BASIC METAB OLIC PANEL (8) potassium 4.3 mmol/ L 3.5-5. 2 Not Available [facility] ([facility]) [address] [place], [address], 06/29/2024 06:18:53 06/28/20 24 06/29/2024 BASIC METAB OLIC PANEL (8) chloride 102 mmol/ L 96-106 Not Available [facility] ([facility]) [address] [place], [address], 06/29/2024 06:18:53 06/28/20 24 06/29/2024 BASIC METAB OLIC PANEL (8) carbon dioxide, total 22 mmol/ L 20-29 Not Available [facility] ([facility]) [address] [place], [address], 06/29/2024 06:18:53 06/28/20 24 06/29/2024 BASIC METAB OLIC PANEL (8) calcium 9.3 mg/dL 8.7-10 .2 Not Available [facility] [facility]) [address] [place], [address], 06/29/2024 06:18:53 06/28/20 24 06/30/2024 URINE CULTU RERONAL NE urine culture, routine FINAL REPORT Not Available [facility] ([facility]) [address] [facility], [place], [address], 06/30/2024 07:15:29 06/28/20 24 06/30/2024 URINE CULTU RERONAL NE result 1 COMMEN T Mixed uroge nital annika 25,00 0-50, 000 colon y formi ng units per mL Not Available [facility] ([facility]) [address] [facility], [place], [address], 06/30/2024 07:15:29 04/22/20 24 04/22/2024 trans -thor acic echoc ardio gram (TTE) (PROC ) No observ ation record ed. [facility] [address] , [place], [address], 08/22/2024 14:07:19 04/22/20 24 04/22/2024 trans -thor acic echoc ardio gram (TTE) (PROC ) No observ ation record ed. [email or web address] [facility] [address] , [place], [address], 08/04/2024 10:44:22 06/22/20 24 06/20/2024 XR, chest No observ ation record ed. [facility] () [address] [place], [address], 06/29/2024 09:55:00 06/29/20 24 06/29/2024 XR, knee No observ ation record ed. [facility] [address] [place], [address], 06/30/2024 10:41:14 Result Notes None recorded. 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 Not Available [facility] 4 02:12:23 Essential hypertension 71120426 Active Not Available [facility] 4 02:12:23 Chronic obstructive pulmonary disease 85658216 Active Not Available [facility] 4 02:12:23 Tobacco dependence syndrome 28044033 Active Not Available [facility] 4 02:12:23 Morbid obesity 812165106 Active Not Available [facility] 4 02:12:23 Hyperglycemia 29215442 Active Not Available [facility] 4 02:12:23 Metabolic syndrome X 020931807 Active Not Available [facility] 4 02:12:23 Acute bronchitis 62422332 Active Not Available [facility] 4 02:12:22 Postoperative nausea 67682701 Active Not Available [facility] 4 02:12:23 Edema of lower extremity 758602753 Active Not Available [facility] 4 02:12:22 Sleep apnea 36352793 Active Not Available [facility] 4 02:12:23 Calculus of kidney and ureter 468362955 Active Not Available [facility] 4 02:12:23 Notes:Some problems listed i n Documents: #[id number], #[id number], #[id number] could not be added to this patient's chart. Please review these documents and add these problems to the patient's chart manually as needed. Problem Notes None recorded. Procedures Surgical History Date Name Laterality Status Provider Name and Address Organization Details Recorded Time Tonsillectomy completed Errol Heart MA [facility] 02/07/2015 11:21:42 Dilation and Curettage completed Errol Heart MA [facility] 02/07/2015 11:21:42 Diagnostic colonoscopy completed Errol Heart MA [facility] 02/07/2015 12:27:38 Imaging Results Imaging Date Name Status LastModified by Organization Details LastModified Time 04/22/2024 trans-thoracic echocardiogram (TTE) (PROC) completed [facility] [address], [place], [address], 08/22/2024 14:07:19 04/22/2024 trans-thoracic echocardiogram (TTE) (PROC) completed [email or web address] [facility] [address], [place], [address], 08/04/2024 10:44:22 06/20/2024 XR, chest completed [facility] (Im) [address] [place], [address], 06/29/2024 09:55:00 06/29/2024 XR, knee completed [facility] [address] [place], [address], 06/30/2024 10:41:14 Procedure Notes None recorded. Medical Equipment None Reported. Allergies Allergen ID Allergen Name Allergen Category Reaction Reaction Severity Criticality Documentation Date Start Date Code Code System Note Provider Name and Address Organization Details Recorded Time 168990 erythromy [facility] medicatio n anaphylax is Not available Not available 02/18/2019 4053 RxNorm ARON Vo, [place] - [facility] 9 15:54:34 173662 Substance with sulfonami de structure and antibacte rial mechanism of action (substanc e) medicatio n Not available Not available Not available 02/18/2019 13513 8003 SNOMED ARON Vo, [place] [facility] 9 15:56:14 991631 ciproflox acin medicatio n Not available Not available Not available 02/18/2019 2551 RxNorm ARON Vo [place] [facility] 9 15:57:20 806625 atorvasta tin medicatio n muscle cramps Not available Not available 07/18/2021 34666 RxNoARON Wills [place] [facility] 1 14:44:01 764963 glipizide medicatio n rash Not available Not available 04/26/20242022 4821 RxNorm Dalila Kitchen MD Attn: Chad cedillo,[address] [facility], [place], [address], [facility] 4 16:40:00 60690 Erythroci n medicatio n anaphylax is Not available Not available 03/21/2015 55134 3 RxNorm Errol Heart MA [facility], [place] - [facility] 9 15:54:44 Medications Name Sig Start [...] height Body mass index (BMI) Body weight Body temperature Respiratory rate Heart rate Systolic blood pressure Diastolic blood pressure Provider Name and Address Organization Details Last Updated DateTime 4 156.21 cm 77.5 kg/m2 914918. 94 g 97.3 [degF] 16 /min 88 /min 159 mm[Hg] 86 mm[Hg] Eric Barrientos MA [facility] 4 15:05:16 Date Recorded Body height Body mass index (BMI) Body weight Oxygen saturation Oxygen saturation in Arterial blood by Pulse oximetry Inhaled oxygen flow rate Heart rate Respiratory rate Systolic blood pressure Diastolic blood pressure Provider Name and Address Organization Details Last Updated DateTime 4 156.21 cm 77 kg/m2 305114. 64 g 97 % 97 % 4 L/min 80 /min 20 /min 132 mm[Hg] 68 mm[Hg] LOUIS Bhat [place] - [facility] 4 14:56:08 Date Recorded Body height Body mass index (BMI) Body weight Oxygen saturation Oxygen saturation in Arterial blood by Pulse oximetry Inhaled oxygen flow rate Heart rate Systolic blood pressure Diastolic blood pressure Provider Name and Address Organization Details Last Updated DateTime 4 156.21 cm 77.5 kg/m2 497985. 02 g 99 % 99 % 4 L/min 80 /min 128 mm[Hg] 68 mm[Hg] Marybeth Ayon MA [facility] 4 12:33:22 Date Recorded Body height Body mass index (BMI) Body weight Oxygen saturation Oxygen saturation in Arterial blood by Pulse oximetry Inhaled oxygen flow rate Heart rate Systolic blood pressure Diastolic blood pressure Provider Name and Address Organization Details Last Updated DateTime 4 156.21 cm 77.5 kg/m2 353607. 02 g 99 % 99 % 4 L/min 95 /min 122 mm[Hg] 78 mm[Hg] Marybeth AyonARON [facility] SI 4 11:24:13 Date Recorded Body height Body mass index (BMI) Body weight Oxygen saturation Oxygen saturation in Arterial blood by Pulse oximetry Inhaled oxygen flow rate Heart rate Systolic blood pressure Diastolic blood pressure Provider Name and Address Organization Details Last Updated DateTime 4 156.21 cm 75.5 kg/m2 128286. 5 g 98 % 98 % 4 L/min 76 /min 120 mm[Hg] 78 mm[Hg] Marybeth Ayon MA [facility] 4 15:08:09 Social History Question Answer Notes LastModified by Organizat ion Details LastModified Time Tobacco Smoking Status Former Smoker patient quit 7years ago LOUIS Bhat, [facility] 04/26/2024 14:54:58 Do You Have An Advance [...] Or The Highest Degree You Have Received? [id number] Information not available 08/19/2023 Are There Any Guns Present In Your Home? No Information not available 08/19/2023 In The Past 7 Days, How Many Days Did You Exercise? 0 Information not available 11/25/2023 In The Past 7 Days, How Much Pain Have You [place]? Some Legs Information not available 11/25/2023 In [...] Past 7 Days, How Often Have You [place] Sleepy In The Daytime? Usually Information not available 11/25/2023 # Alcohol Drinks Per Week 0 Information not available 11/25/2023 Do You Have A Medical Power Of Charcoal Unloader? No Information not available 03/08/2024 What Was [...] Anxious, Or Unable To Sleep At Night)? [id number] Information not available 08/19/2023 Do You Use [...] Time Hep A, adult 12/19/2009 completed LOUIS Bhat, [place] 04/26/2024 14:59:02 Hep A, adult 07/10/2010 completed LOUIS Bhat, [place] [facility] 04/26/2024 14:59:02 Past Encounters Encounter ID Performer Location Encounter Start Date Encounter Closed Date Diagnosis/Indication Diagnosis SNOMED-CT Code Diagnosis ICD10 Code [id number] [facility] (Adult Med) [address] [place] [address]329[address] 0 02/07/2015 10:54:18 02/07/2015 18:20:51 Dannemora - lesion 469585020 Essential hypertension 27509176 Chronic ob structive pulmonary disease 99043716 Tobacco de pendence syndrome 48945534 Morbid obesity 526478256 Hyperglycemia 02847749 Metabolic syndrome X 237 913903 Adult [facility] th examination [id number] Alison Brumfield (Adult Med) [address] [place] [address] 14226-776 0 03/21/2015 12:46:46 03/21/2015 13:29:35 Acute bronchitis 66427160 Chronic ob structive pulmonary disease 67618822 Tobacco de pendence syndrome 59459421 Metabolic syndrome X 237 292607 Morbid obesity 726310197 Postoperative nausea 645 50558 [id number] Alison Montoya [facility] (Adult Med) [address] [place] [address] 76296-090 0 06/20/2015 14:57:08 06/20/2015 15:50:34 Morbid obesity 794379524 Essential hypertension 14862526 Chronic ob structive pulmonary disease 47976133 Edema of l ower extremity 005142311 [id number] MD Octaviano French (Adult Med) [address] [place] [address] 73587-903 0 09/15/2015 15:48:49 09/15/2015 16:16:10 Essential hypertension 18239179 I10 Chronic ob structive pulmonary disease 68155157 J44.9 Tobacco de pendence syndrome 62620460 F17.290 Sleep apnea 70583339 G47 .30 [id number] Margret Broussard is [facility] (Adult Med) [address] [place] [address] 38690-882 0 10/04/2015 12:06:22 10/06/2015 11:58:30 Acute bronchitis 76246285 J20.9 Chronic ob structive pulmonary disease 23990013 J44.9 Essential hypertension 11704496 I10 Metabolic syndrome X 237 120485 E88.81 Tobacco de pendence syndrome 27721530 F17.290 [id number] Margret Broussard is [facility] (Adult Med) [address] [place] [address] 22190-942 0 12/28/2015 15:42:54 12/28/2015 17:06:09 Chronic obstructive pulmonary disease 76768271 J44.9 Essential hypertension 12522029 I10 Metabolic syndrome X 237 581810 E88.81 Morbid obesity 896212832 E66.01 Tobacco de pendence syndrome 14289307 F17.290 Sleep apnea 23970922 G47 .30 [id number] MD Octaviano French (Adult Med) [address] [place] [address] 52616-236 0 03/21/2016 16:28:10 03/21/2016 17:48:26 Chronic obstructive pulmonary disease 95231494 J44.9 Essential hypertension 26873234 I10 Metabolic syndrome X 237 019336 E88.81 Morbid obesity 073382497 E66.01 Tobacco de pendence syndrome 89024414 F17.290 Calculus o f kidney and ureter 837046887 N20.2 [id number] MD Oct[facility] French (Adult Med) [address] [place] [address] 19194-563 0 08/16/2016 15:06:53 08/16/2016 18:17:02 Kidney stone 21304980 N20.0 [id number] MD Octaviano French (Adult Med) [address] [place] [address] 43990-773 0 09/19/2016 15:51:36 09/19/2016 18:11:05 Acute sinusitis 20965904 J01.90 Acute pharyngitis 945969 003 J02.9 Chronic ob structive pulmonary disease 08160942 J44.9 Tobacco de pendence syndrome 30949633 F17.290 Morbid obesity 190091847 E66.01 [id number] MD Octaviano French (Adult Med) [address] [place] [address] 33760-234 0 02/03/2017 15:38:47 02/03/2017 18:18:46 Furunculosis of skin AND/OR subcutaneous tissue 26149700 L02.92 [id number] MD Octaviano French (Adult Med) [address] [place] [address] 35016-026 0 02/21/2017 14:53:27 02/21/2017 17:02:28 Cellulitis of lower leg 524125502 L03.433 [id number] MD Octaviano French (Adult Med) [address] [place] [address] 90328-541 0 03/11/2017 15:13:59 03/12/2017 11:16:57 Recurrent cellulitis 015590193 L03.90 [id number] MD Octaviano French (Adult Med) [address] [place] [address] 22394-311 0 03/28/2017 11:51:33 03/28/2017 13:09:35 Cellulitis of lower limb 907082693 L03.119 Edema of l ower extremity 475127059 R60.0 Morbid obesity 536327985 E66.01 [id number] MD Octaviano French (Adult Med) [address] [place] [address] 57942-173 0 04/15/2017 11:27:21 04/16/2017 18:30:27 Cellulitis of lower leg 227966639 L03.119 Morbid obesity 252834865 E66.01 [id number] MD Octaviano French (Adult Med) [address] [place] [address] 32781-328 0 11/24/2017 14:02:24 11/24/2017 15:04:45 Chronic instability of knee 290299131 M23.51 Contact dermatitis 77494 004 L25.9 [id number] MD Octaviano French (Adult Med) [address] [place] [address] 55174-359 0 02/16/2018 15:00:58 02/16/2018 16:11:50 Kidney stone 62259785 N20.0 Cellulitis of lower leg 726315900 L03.119 Morbid obesity 141003538 E66.01 Pain in right knee 17537 36505 87678 M25.561 Type 2 dot betes mellitus 68292470 E11.9 [id number] [facility] [address] [place] [address] 88155-520 0 05/13/2018 16:29:38 05/13/2018 17:45:07 Urolithiasis 07071409 N20.9 Type 2 dot betes mellitus 69689918 E11.9 [id number] MD Octaviano French (Adult Med) [address] [place] [address] 41838-822 0 07/13/2018 15:00:40 07/13/2018 16:06:14 Diabetes mellitus 45156513 E11.9 Blood coag ulation disorder 38547480 D68.4 Chronic ob structive pulmonary disease 30781100 J44.9 Morbid obesity 920239225 E66.01 Nausea present 242048752 R11.0 Postoperative nausea 645 08393 R11.0 [id number] MD Octaviano French (Adult Med) [address] [place] [address] 75766-851 0 10/13/2018 14:27:22 10/13/2018 15:16:08 Type 2 diabetes mellitus 07648041 E11.9 Nausea 812243270 R11.0 Blood coag ulation disorder 67122333 D68.4 Morbid obesity 082099719 E66.01 Degenerati ve joint disease involving multiple joints 738178749 M15.9 [id number] MD Octaviano French (Adult Med) [address] [place] [address] 50193-113 0 02/18/2019 15:07:27 02/19/2019 08:58:03 Type 2 diabetes mellitus 23567386 E11.9 Restless legs 50294608 G 25.81 Degenerati ve joint disease involving multiple joints 147729882 M15.9 Insomnia 188598114 G47.0 0 Morbid obesity 326046613 E66.01 Chronic ob structive pulmonary disease 44480291 J44.9 Ex-smoker 8549168 Z87.89 1 Nausea present 224852481 R11.0 Essential hypertension 79397182 I10 Chronic at rial fibrillation 503216795 I48.2 [id number] Roger Trivedi MD [facility] (Adult Med) [address] [place] [address] 28070-689 0 05/13/2019 11:51:37 05/13/2019 13:55:07 Type 2 diabetes mellitus 29935141 E11.9 Chronic ob structive pulmonary disease 94384669 J44.9 Ex-smoker 7581408 Z87.89 1 [id number] Roger Trivedi MD [facility] (Adult Med) [address] [place] [address] 96520-886 0 08/16/2019 15:45:06 08/16/2019 16:41:01 Diabetes mellitus 87782173 E11.9 Essential hypertension 17207104 I10 Morbid obesity 250012654 E66.01 Tobacco de pendence syndrome 17428430 F17.290 Chronic ob structive pulmonary disease 58655102 J44.9 Ex-smoker 1057205 Z87.89 1 Indigestion 306738145 K3 0 Type 2 dot betes mellitus 34310713 E11.9 [id number] Roger Trivedi MD [facility] (Adult Med) [address] [place] [address] 39220-899 0 11/16/2019 16:39:34 11/16/2019 18:25:15 Type 2 diabetes mellitus 15691478 E11.9 Lesion of scalp 66983499 91 00 L98.9 History of thyroid disorder 601424347 Z86.39 Chronic ob structive pulmonary disease 50291129 J44.9 [id number] MD Octaviano French (Adult Med) [address] [place] [address] 23520-780 0 02/14/2020 12:34:11 02/15/2020 12:15:05 Chronic obstructive pulmonary disease 91446771 J44.9 Diabetes mellitus 908918 09 E11.9 Essential hypertension 47582884 I10 Metabolic syndrome X 237 980315 E88.81 Cardiac arrhythmia 06430 7007 I49.9 [id number] MD Octaviano French (Adult Med) [address] [place] [address] 48677-236 0 09/14/2020 08:25:22 09/15/2020 13:01:00 Chronic obstructive pulmonary disease 49074725 J44.9 Diabetes mellitus 517321 09 E11.9 Edema of l ower extremity 928661325 R60.0 Essential hypertension 44412223 I10 Metabolic syndrome X 237 823330 E88.81 Morbid obesity 536127085 E66.01 Sleep apnea 34259815 G47 .30 Tobacco de pendence syndrome 75561182 F17.290 Irritable bowel syndrome 45440437 K58.9 Degenerati ve joint disease involving multiple joints 689022079 M15.9 [id number] [facility] [address] [place] [address] 24198-665 0 04/17/2021 11:25:56 04/23/2021 12:05:23 Chronic obstructive pulmonary disease 78065820 J44.9 Diabetes mellitus 357072 09 E11.9 Edema of l ower extremity 763321691 R60.0 Essential hypertension 94101541 I10 Metabolic syndrome X 237 602635 E88.81 Morbid obesity 414208494 E66.01 Tobacco de pendence syndrome 98169372 F17.290 Nausea 641086329 R11.0 Dyslipidem ia due to type 2 diabetes mellitus 9848667373 02 E78.5 Degenerati ve joint disease involving multiple joints 048313547 M15.9 [id number] MD Oct[facility]iano French (Adult Med) [address] [place] [address] 37709-328 0 07/18/2021 14:15:17 07/19/2021 13:49:49 Pruritic disorder 597576722 L29.9 Cramp in lower limb 4499 01159 R25.2 [id number] ARON Vo (Adult Med) [address] [place] [address] 25087-301 0 10/18/2021 14:54:08 10/18/2021 16:11:23 Urinary tract infectious disease 39143338 N39.0 COVID-19 119399451 U07.1 Morbid obesity 946257126 E66.01 Diabetes mellitus 274916 09 E11.9 [id number] MD Octaviano French (Adult Med) [address] [place] [address] 57260-996 0 02/15/2022 14:16:09 02/19/2022 08:20:22 Diabetes mellitus 15463741 E11.9 Edema of l ower extremity 353953992 R60.0 Essential hypertension 40516932 I10 Metabolic syndrome X 237 826381 E88.81 Morbid obesity 452151152 E66.01 Sleep apnea 47994533 G47 .30 Tobacco de pendence syndrome 71804651 F17.772 [id number] MD Octaviano French (Adult Med) [address] [place] [address] 15438-845 0 05/22/2022 14:45:05 05/23/2022 10:59:18 Diabetes mellitus 15206439 E11.9 Chronic ob structive pulmonary disease 26195133 J44.9 Edema of l ower extremity 355133705 R60.0 Morbid obesity 688415749 E66.01 Sleep apnea 03999589 G47 .30 Hypertensive disorder 38 052654 I10 [id number] MD Octaviano French (Adult Med) [address] [place] [address] 92838-015 0 09/19/2022 10:23:26 09/25/2022 03:46:46 [id number] MD Octaviano French (Adult Med) [address] [place] [address] 41119-454 0 10/28/2022 15:22:14 10/28/2022 16:22:09 Eruption 017401567 R21 Bilateral lower leg edema 053387039 R60.0 Screening for malignant neoplasm of colon 092340076 Z12.11 Morbid obesity 217832873 E66.01 Type 2 dot betes mellitus 54008507 E11.9 [id number] MD Octaviano French (Adult Med) [address] [place] [address] 71830-546 0 01/30/2023 15:43:55 02/03/2023 11:07:38 Osteoarthritis of knee 736233803 M17.9 Morbid obesity 397080452 E66.01 Edema of l ower extremity 744505009 R60.0 Chronic ob structive pulmonary disease 60306682 J44.9 [id number] MD Octaviano French (Adult Med) [address] [place] [address] 37344-996 0 05/19/2023 16:47:08 05/21/2023 15:00:00 Uncontrolled type 2 diabetes mellitus 618763505 E11.65 Screening mammography 24 903260 Z12.31 Morbid obesity 820565895 E66.01 Urinary incontinence 165 422411 R32 Chronic ob structive pulmonary disease 29425811 J44.9 HIV screen ing declined 2440401339 93139 Z53.20 [id number] MD Octaviano French (Adult Med) [address] [place] [address] 28404-588 0 08/19/2023 14:59:28 08/20/2023 13:56:45 Nausea 648308869 R11.0 Morbid obesity 571657383 E66.01 Osteoarthr itis of knee 576384078 M17.9 HIV screen ing declined 7823771155 97569 Z53.20 [id number] MD Octaviano French (Adult Med) [address] [place] [address] 30491-982 0 11/26/2023 11:33:42 12/01/2023 11:14:30 Adult health examination 449493119 Z00.00 Screening for malignant neoplasm of colon 900059267 Z12.11 Uncontroll ed type 2 diabetes mellitus 800011331 E11.65 Morbid obesity 979611621 E66.01 Chronic ob structive pulmonary disease 98067975 J44.9 [id number] MARQUES BURNETT [facility] [address] [place] [address] 03/08/2024 14:48:50 03/10/2024 15:05:11 Nausea 490376628 R11.0 [id number] MD Octaviano Lewis (Adult Med) [address] [place] [address] 70466-803 0 04/26/2024 14:43:34 04/27/2024 12:17:35 Morbid obesity 013449125 E66.01 Vertigo 722796163 R42 Type 2 dot betes mellitus 69279076 E11.9 History of atrial fibrillation 366739669 Z86.79 Chronic ob structive pulmonary disease 50014943 J44.9 Edema of l ower extremity 236172803 R60.0 Bullous pemphigoid 44917 002 L12.0 Osteoarthr itis of knee 563133016 M17.9 Essential hypertension 72117892 I10 Nausea 275585161 R11.0 [id number] MD Octaviano Lewis (Adult Med) [address] [place] [address] 49475-323 0 06/11/2024 12:03:36 06/15/2024 16:11:27 Type 2 diabetes mellitus 08419777 E11.9 Pain of ri ght knee joint 2507241106 64701 M25.561 Vertigo 184812728 R42 [id number] MD Octaviano Lewis (Adult Med) [address] [place] [address] 65010-371 0 06/28/2024 11:03:04 06/29/2024 11:12:25 Pyelonephritis 21193241 N12 Abnormal r enal function 22114867 R94.4 Body mass index 40+ - severely obese 677057022 Z68.45 Type 2 dot betes mellitus 16142907 E11.9 Nausea 336871916 R11.0 Pain of ri ght knee joint 5889020136 67256 M25.561 Essential hypertension 98472436 I10 Chronic ob structive pulmonary disease 83012992 J44.9 Open wound of right lower leg 3894286852 1278244 S81.801D [id number] MD Octaviano Lewis (Adult Med) [address] [place] [address] 09/06/2024 14:41:55 09/08/2024 10:14:03 Screening for malignant neoplasm of breast 045603901 Z12.39 Type 2 dot betes mellitus 45741101 E11.9 Screening for malignant neoplasm of colon 669683377 Z12.11 Laboratory test result abnormal 974128503 R89.9 Chronic ob structive pulmonary disease 01463928 J44.9 Essential hypertension 93747521 I10 Cramp in lower limb 4499 76973 R25.2 Degenerati ve joint disease involving multiple joints 513429245 M15.9 Edema of l ower extremity 060507982 R60.0 Health Concerns Section Related Observation LastModified by Organization Detai ls LastModified Time None Recorded Concern Status LastModified by Organization Details LastModified Time None Recorded Advance Directives Directive N: Payers Encounter Date Sequence Insurance Name Policy Number Policy Salazar Covered Member ID Salazar Member ID Guarantor Name 03/08/2024 1 [employer] (MEDICARE REPLACEMENT/AD VANTAGE - HMO) [id number] Susan Mo [id number] Susan Mo 04/26/2024 1 [employer] (MEDICARE REPLACEMENT/AD VANTAGE - HMO) [id number] Susan Mo [id number] Susan Mo 04/26/2024 2 [place] WHEN MED[place]ARE OR MEDICARE REPLACEMENT PRIMARY) Melody Mo [id number] Susan Mo 06/11/2024 1 [employer] (MEDICARE REPLACEMENT/AD VANTAGE - HMO) [id number] Susan Mo [id number] Susan Mo 06/11/2024 2 [place] OR MEDICARE REPLACEMENT PRIMARY) Melody Mo [id number] Susan Mo 06/28/2024 1 [employer] (MEDICARE REPLACEMENT/AD VANTAGE - HMO) [id number] Susan Mo [id number] Susan Mo 06/28/2024 2 [place]MENT [place] Melody Mo [id number] Susan Mo 09/06/2024 1 [employer] (MEDICARE REPLACEMENT/AD VANTAGE - HMO) [id number] Susan Mo [id number] Susan Mo Notes Date Note Type Note Provider Name and Address Organization Details Recorded Time 03/08/2024 text/html Patient with PMH x of COPD, LB, and morbid obesity presents today for evaluation of nausea x many years. Has tried metoclopramide 10 mg with no relief. Unsure what provokes MARQUES BURNETT [address], [place], [address], [facility] 03/08/2024 15:24:44 04/26/2024 text/html here for follow up, complains of feeling dizzy, has been going on for a month or month and a half, room starts spinning, if stands up has to sit down again, no nausea, has not passed out, has not had this feeling before, when moves head quickly it aggravates it, no issues with hearing, slight ringing in right ear sometimes, no cold symptoms when this all started, treated for diabetes and arthritis in knees, treated for hypertension, sees information systems security analyst, three years ago diagnosed with a fib, no chest pain, no change in breathing, sees a cylinder handler for CPAP, when in the hospital two years ago for COVID was sent home with oxygen, smoked, quit six or seven years ago, history of asthma, was on blood thinner at one time because of blood clot in back of leg, blood clot resolved and blood thinner stopped, sees Dr. Golden for women's health, takes Baclofen for knees bid, takes Doxycycline and Prednisone and Niacinamide for bullous pemphigoid, was taking Omeprazole but stopped it because it was making her feel not herself so going to do an EGD and colonoscopy, takes Pioglitazone for diabetes, last saw eye doctor May, supposed to see someone else May for yearly, checks feet every day, no neuropathy on bottom of feet, gets a tingling in legs, lasts about five to ten seconds and then gone, happens often in a day, mostly right leg, often around the knees, no radiating pain, in August believes was allergic to a diabetic medicine, goes to wound clinic to get legs wrapped, no thyroid cancer or pancreatitis in patient's family Dalila Kitchen MD Attn: Accounting,[address] [facility], [place], [address], [facility] 04/26/2024 16:40:12 06/11/2024 text/html follow up, still having the dizziness but a little better, was never called for therapy so has not had therapy yet, diabetes not well controlled, information systems security analyst talked about taking her off the pioglitazone [...] the same as Tramadol, nothing helps much Dalila Kitchen MD Attn: Accounting,[address] [place], [address], [facility] 06/12/2024 10:18:07 06/28/2024 text/html follow up hospitalization, Friday morning [...] nausea, last saw GI doctor in February Dalila Kitchen MD Attn: Accounting,[address] [place], [address], [facility] 06/28/2024 12:06:30 09/06/2024 text/html follow up, no concerns or [...] for leg wound, leg healing well, Dalila Kitchen MD Attn: Accounting,[address] [place], [address], [facility] 09/06/2024 18:59:54 OBGyn Episode No OBEpisode recorded.
--- NOTE | 2024-09-09 16:08 | ECG_ITS ---
Test Date: 2024-09-09 16:10:29 Measurements Intervals [place] Rate: 121 P: 55 ID: [id number] QRS: 30 QRSD: 81 T: 35 QT: 306 QTc: 436 Interpretive Statements SINUS TACHYCARDIA LOW QRS VOLTAGE IN PRECORDIAL LEADS [QRS DEFLECTION < 1.0 mV IN CHEST LEADS] POSSIBLE ANTERIOR MYOCARDIAL INFARCTION , PROBABLY OLD [30 ms Q WAVE IN V3/V4, OR R < 0.2 mV IN V4] ABNORMAL RHYTHM ECG No previous ECG available for comparison Electronically Signed On 09-09-2024 16:28:29 TEACHING ASSISTANT by Leona Salas
[2024-09-09] MEDS: ONDANSETRON INJ 4 MG/2 ML VIAL IV PUSH (16:29)
[2024-09-09] MEDS: ACETAMINOPHEN 500 MG TABLET 1000 MG PO (16:40)
[2024-09-09 16:44] LABS: Basophils Percent Auto 0.3 % (0.2-1.2); Eosinophils Absolute Auto 0.1 K/mm3 (0-0.3); Hematocrit 44.6 % (37.0-47.0); Hemoglobin 14.2 g/dL (12.0-15.0); Immature Granulocyte Absolute 0.04 K/mm3 (0.00-0.031); Immature Granulocyte Percent A 0.3 % (0-0.5); Lymphocytes Absolute Auto 1.23 K/mm3 (0.9-3.2); Lymphocytes Percent Auto 10.7 % (18.3-44.2); Mean Corpuscular HGB Conc 31.8 g/dl (32-36); Mean Corpuscular Hemoglobin 29.9 pg (26-34); Mean Corpuscular Volume 93.9 fl (80-100); Mean Platelet Volume 10.5 fl (7.4-10.4); Monocytes Absolute Auto 0.6 K/mm3 (0.1-0.6); Neutrophils Absolute Auto 9.5 K/mm3 (1.3-6.7); Neutrophils Percent Auto 82.7 % (45.5-73.1); Platelet Count Result 172 k/mm3 (150-375); Red Blood Count 4.75 M/mm3 (4.2-5.4); Red Cell Distribution Width 15.3 % (11.5-14.5); White Blood Count 11.5 K/mm3 (4.5-10.0)
[2024-09-09 16:55] LABS: Alanine Aminotransferase 34 U/L (6-35); Albumin Level 3.8 g/dL (3.5-5.1); Alkaline Phosphatase 70 U/L (38-126); Anion Gap 9 mmol/L (4-12); Aspartate Amino Transferase 42 U/L (14-36); Blood Urea Nitrogen 11 mg/dL (7-17); Carbon Dioxide 24 mmol/L (22-30); Chloride 103 mmol/L (98-107); Estimated CRCL calculation 73 ml/min; Estimated Glomerular Filt Rate 43; Glucose 206 mg/dL (65-110); Potassium 4.4 mmol/L (3.4-5.0); Sodium 136 mmol/L (137-145)
[2024-09-09 16:59] LABS: Lactic Acid Reflex 4.9 mmol/L (0.7-2.0)
[2024-09-09 17:23] LABS: Influenza A QL RT-PCR Negative (Negative); Influenza B QL RT-PCR Negative (Negative); SARS-CoV-2 RNA PCR Negative (Negative)
[2024-09-09] MEDS: ALBUTEROL SULFATE (*SP) INHALER 2 PUFF INHALATION (17:36)
[2024-09-09] MEDS: LACTATED RINGERS 1,000 ML 999 ML IV CONT ×3 (17:58→19:39)
--- NOTE | 2024-09-09 18:31 | ED_ITS ---
HPI - General Adult General Chief complaint: Unspecified <Nicol Nguyen MD - Last Filed: 09/09/24 19:02> Stated complaint: L rib pain, N/V <Nicol Nguyen MD - Last Filed: 09/09/24 19:02> Time Seen by Provider: 09/09/24 16:17 <Nicol Nguyen MD - Last Filed: 09/09/24 19:02> History of Present Illness HPI narrative: patient presents with 1 day of increased shortness of breath, chills, nausea vomiting, left-sided rib/abdominal discomfort. No swelling or tenderness to her legs more than usual no new tenderness or lesions that she noticed <Nicol Nguyen MD - Last Filed: 09/09/24 19:02> Related Data Home medications: Home Medications ?Medication ?Instructions ?Recorded ?Confirmed ?Last Taken ?Type baclofen 10 mg tablet 10 mg PO Q12H 04/12/24 09/10/24 09/09/24 History bumetanide 1 mg tablet 1 mg PO DAILY 04/12/24 09/10/24 09/09/24 History calcium 500 mg (as 1 tablet PO Q12H 04/12/24 09/10/24 09/09/24 History carbonate)-vitamin D3 5 mcg (200 unit) tablet (Oysco 500/D) lisinopril 10 mg tablet 10 mg PO DAILY 04/12/24 09/10/24 09/09/24 History magnesium oxide 500 mg capsule 500 mg PO Q12H 04/12/24 09/10/24 09/09/24 History metoprolol succinate 100 mg 100 mg PO DAILY 04/12/24 09/10/24 09/09/24 History tablet,extended release 24 hr niacinamide 500 mg tablet 500 mg PO TID 04/12/24 09/10/24 09/09/24 History pioglitazone 30 mg tablet 30 mg PO DAILY 04/12/24 09/10/24 09/09/24 History prednisone 2.5 mg tablet 2.5 mg PO DAILY 04/12/24 09/10/24 09/09/24 History tramadol 200 mg capsule 200 mg PO DAILY PRN Pain 04/12/24 09/10/24 09/09/24 History 24h,extended release(25-75) turmeric root extract 500 mg 500 mg PO DAILY 04/12/24 09/10/24 09/09/24 History capsule zinc acetate 50 mg (zinc) capsule 50 mg PO DAILY 04/12/24 09/10/24 09/09/24 History doxycycline hyclate 100 mg tablet 100 mg PO DAILY 07/12/24 09/10/24 09/09/24 History empagliflozin 10 mg tablet 10 mg PO DAILY 07/15/24 09/10/24 09/09/24 History (Jardiance) diclofenac sodium 1 % topical gel 2 g topical QID PRN pain 09/10/24 09/10/24 09/09/24 History fluconazole 100 mg tablet mg 09/10/24 Unknown History hydroxyzine HCl 10 mg tablet mg 09/10/24 Unknown History magnesium oxide 400 mg (241.3 mg 400 mg PO Q12H 09/10/24 09/10/24 09/09/24 History magnesium) tablet <Nicol Nguyen MD - Last Filed: 09/09/24 19:02> Allergies/adverse reactions: Allergies Allergy/AdvReac Type Severity Reaction Status Date / Time clindamycin Allergy Mild Unknown Verified 07/15/24 13:53 erythromycin base Allergy Mild Nausea and Verified 07/15/24 13:53 Vomiting Sulfa (Sulfonamide Allergy Mild Unknown Verified 07/15/24 13:53 Antibiotics) <Nicol Nguyen MD - Last Filed: 09/09/24 19:02> Review of Systems 2 Review of Systems: As reviewed above in HPI <Alexis Crocker MD - Last Filed: 09/10/24 22:02> All systems reviewed & are unremarkable except as noted in HPI and below < Nicol Nguyen MD - Last Filed: 09/09/24 19:02> PMFSH Past Medical History Medical History: Medical History BMI 70 and over, adult Chronic obstructive pulmonary disease Diabetes type 2, controlled HTN (hypertension) Kidney stone Left knee DJD Right knee DJD Sleep apnea <Nicol Nguyen MD - Last Filed: 09/09/24 19:02> Surgical History Surgical History: Surgical History History of appendectomy History of partial hysterectomy Hx of cholecystectomy Hx of tonsillectomy <Nicol Nguyen MD - Last Filed: 09/09/24 19:02> Family History Family History: Family History (Updated 09/10/24 @ 01:03 by Maurilio Sanabria RN) Father Kidney failure Mother Hypertension Mother Diabetes mellitus <Nicol Nguyen MD - Last Filed: 09/09/24 19:02> Social History Social History: Social History Smoking packs per day: 1 Smoking cigarettes per day: 20.0 Years smoked: 29 Smoking pack-years: 29.00 Smoking status: Former smoker Tobacco type: cigarettes Smoking end date: 09/29/17 Alcohol intake: current Drinks per week: 1 Substance use: never Substance use type: does not use Do You Feel Safe in your Home?: Yes Lack of Transportation: YES Lack of Food: Never True Current Housing: I Have Housing Concerned About Future Housing: No Difficulty Paying Gas/Electric Bills: No Difficulty Paying for Meds: No Currently Unemployed: No Education: High School Diploma/GED Difficulty w/ Childcare or Family Care: No Living arrangements: with family Gender identity (if verbalized by the patient): Female Spiritual care concerns: No <Nicol Nguyen MD - Last Filed: 09/09/24 19:02> Exam 2 Narrative: EXAMINATION OF ORGAN SYSTEMS/BODY AREAS: Constitutional: Vital signs per nursing GENERAL: dyspnea; morbid obesity HEAD: Normal with no signs of head trauma. EYES: EOMI, conjunctiva normal ENT: Hearing grossly intact LUNGS: dyspneic, for diminished breath sounds HEART: tachycardic ABD: [Soft], [nontender to palpation] EXT: Normal range of motion SKIN: Chronic venous stasis changes BLE NEURO: [Alert and oriented x 3. No gross focal sensory or strength deficits.] PSYCH: Normal affect <Nicol Nguyen MD - Last Filed: 09/09/24 19:02> EXAMINATION OF ORGAN SYSTEMS/BODY AREAS: Constitutional: Vital signs per nursing GENERAL: dyspnea; morbid obesity HEAD: Normal with no signs of head trauma. EYES: EOMI, conjunctiva normal ENT: Hearing grossly intact LUNGS: dyspneic, for diminished breath sounds HEART: tachycardic ABD: [Soft], [nontender to palpation] EXT: Normal range of motion SKIN: Chronic venous stasis changes BLE. un wrapping the chronic wounds show there are both serosanguineous and blister/bulla around the right lateral aspect of the right leg with some open blisters as well, blister of the tip of the right 2nd digit, serosanguineous bulla of the lateral aspect of the mid right calf. Tenderness to palpation, macerated overlying skin tissue, weepage of fluids throughout, no significant purulent drainage. No crepitus obviously. Similar findings on the left side but having a stage III ulceration/crater on the posterior calf aspect with minor bleeding without any purulence, no hemorrhagic bulla on the left lower extremity noted. Again no crepitus. NEURO: [Alert and oriented x 3. No gross focal sensory or strength deficits.] PSYCH: Normal affect <Alexis Crocker MD - Last Filed: 09/10/24 22:02> Course Vital Signs Vital signs: Vital Signs Temperature 37.9 C H 09/09/24 16:09 Pulse Rate 130 H 09/09/24 16:09 Respiratory Rate 24 H 09/09/24 16:09 Blood Pressure 114/77 09/09/24 16:09 Pulse Oximetry 100 09/09/24 16:09 Oxygen Delivery Nasal Cannula 09/09/24 16:09 Oxygen Flow Rate 4 09/09/24 16:09 Temperature 37.2 C 09/10/24 18:00 Pulse Rate 77 09/10/24 20:56 Respiratory Rate 17 09/10/24 20:56 Blood Pressure 127/66 09/10/24 18:00 Pulse Oximetry 99 09/10/24 20:51 Oxygen Delivery Nasal Cannula 09/10/24 20:51 Oxygen Flow Rate 4 09/10/24 20:51 <Nicol Nguyen MD - Last Filed: 09/09/24 19:02> Vital Signs Temperature 37.9 C H 09/09/24 16:09 Pulse Rate 130 H 09/09/24 16:09 Respiratory Rate 24 H 09/09/24 16:09 Blood Pressure 114/77 09/09/24 16:09 Pulse Oximetry 100 09/09/24 16:09 Oxygen Delivery Nasal Cannula 09/09/24 16:09 Oxygen Flow Rate 4 09/09/24 16:09 Temperature 37.2 C 09/10/24 18:00 Pulse Rate 77 09/10/24 20:56 Respiratory Rate 17 09/10/24 20:56 Blood Pressure 127/66 09/10/24 18:00 Pulse Oximetry 99 09/10/24 20:51 Oxygen Delivery Nasal Cannula 09/10/24 20:51 Oxygen Flow Rate 4 09/10/24 20:51 <Alexis Crocker MD - Last Filed: 09/10/24 22:02> Medical Decision Making MDM Narrative Medical decision making narrative: patient presenting with 2 days of URI symptoms, some nausea, vomiting, cough. She does appear uncomfortable on exam with tachycardia and dyspnea does have slightly elevated white count, elevated lactic acid. Chest x-ray without any obvious pneumonia. However given the difficulty of good exam with her body habitus, will obtain CT chest, abdomen, pelvis given her left-sided abdominal discomfort to rule out stone, considered also UTI, pneumonia not seen on chest x-ray. Given fluids, and on re-evaluation does feel slightly better, repeat heart rate now [address] thankfully nl for acute abnormality. sign out to oncoming ER physician pending urinalysis to look for source of her fever and elevated lactic acid <Nicol Nguyen MD - Last Filed: 09/09/24 19:02> patient presenting with 2 days of URI symptoms, some nausea, vomiting, cough. She does appear uncomfortable on exam with tachycardia and dyspnea does have slightly elevated white count, elevated lactic acid. Chest x-ray without any obvious pneumonia. However given the difficulty of good exam with her body habitus, will obtain CT chest, abdomen, pelvis given her left-sided abdominal discomfort to rule out stone, considered also UTI, pneumonia not seen on chest x-ray. Given fluids, and on re-evaluation does feel slightly better, repeat heart rate now [address] thankfully nl for acute abnormality. sign out to oncoming ER physician pending urinalysis to look for source of her fever and elevated lactic acid. 19:00: Patient signed out to me by previous provider pending remaining workup. I went over and assessed the patient and she now clinically appears to be profound sepsis based on clinical assessment and previous laboratory evaluations. She had elevated lactic acid initially 4.9, leukocytosis 11.5, fever 37.9 that was not responsive to Tylenol. She is otherwise awake alert. Previous workup was reviewed and she was already given 1 L of fluid however her blood pressure went from 114/77 to now having multiple values in the 70s to 80s systolic. Tachycardia in the 130s. She was given additional 2 L of fluid for resuscitation and antibiotics have been initiated to include vancomycin, Zosyn. Try to also include clindamycin for potential necrotizing soft tissue infection coverage however she is allergic to this. Her wounds were on wrapped and investigated she has blisters and serosanguineous bulla of the right lower extremity and states 3 ulcerations bleeding of the left lower extremity with diffusely macerated tissue. Very tender to palpation and weeping fluid. At this time I did review her previous laboratory studies and imaging results in her CT scans of the chest abdomen pelvis showed no definitive source or any kind of acute pathology I would be suspicious for a source of sepsis so we are going to go off the assumption that she has having a significant infection of her skin. Low suspicion presently for any kind necrotizing soft tissue infection especially with the lack of crepitus or hemorrhagic bullae. X-rays of the bilateral extremities were obtained and patient was frequent re-evaluated for fluid responsiveness. Patient will require ICU level of care. Patient was frequent re-evaluated and had improvement her blood pressure and was now up from the 70 systolic into the [id number] range after 3 L of fluid and IV maintenance infusions. No present indications for shock however I did discuss the case with the investor relations director Dr. Weems over the phone with my concerns that she requires ICU level of care based on her severe sepsis without present shock. He did agree to take the patient to the ICU given that her blood pressure is tenuous and if she requires any more fluids here in the ED will require central access and vasopressor medications. Patient was success to the hospital after I spoke to the her overnight hospitalist and relayed the case to them. We went over the imaging studies, clinical assessment, plan of care with broad-spectrum antibiotics and general surgery consultation. Spoke to the general surgeon on- call and he agreed to be on consult for the wounds but no emergent or operative indications at this time, recommendations for IV antibiotics admission with wound care consult. Given patient's clinical improvement with blood pressure improving, heart rate coming down, fever being treated and IV antibiotics running I believe she can be safely admitted to the ICU at this time. Patient left the department any further incident. <Alexis Crocker MD - Last Filed: 09/10/24 22:02> Medical Records Medical records reviewed: Yes I reviewed the external patient's medical records. <Alexis Crocker MD - Last Filed: 09/10/24 22:02> Vital Signs Vital Signs: Vital Signs Temperature 37.9 C H 09/09/24 16:09 Pulse Rate 130 H 09/09/24 16:09 Respiratory Rate 24 H 09/09/24 16:09 Blood Pressure 114/77 09/09/24 16:09 Pulse Oximetry 100 09/09/24 16:09 Oxygen Delivery Nasal Cannula 09/09/24 16:09 Oxygen Flow Rate 4 09/09/24 16:09 Temperature 37.2 C 09/10/24 18:00 Pulse Rate 77 09/10/24 20:56 Respiratory Rate 17 09/10/24 20:56 Blood Pressure 127/66 09/10/24 18:00 Pulse Oximetry 99 09/10/24 20:51 Oxygen Delivery Nasal Cannula 09/10/24 20:51 Oxygen Flow Rate 4 09/10/24 20:51 <Nicol Nguyen MD - Last Filed: 09/09/24 19:02> Vital Signs Temperature 37.9 C H 09/09/24 16:09 Pulse Rate 130 H 09/09/24 16:09 Respiratory Rate 24 H 09/09/24 16:09 Blood Pressure 114/77 09/09/24 16:09 Pulse Oximetry 100 09/09/24 16:09 Oxygen Delivery Nasal Cannula 09/09/24 16:09 Oxygen Flow Rate 4 09/09/24 16:09 Temperature 37.2 C 09/10/24 18:00 Pulse Rate 77 09/10/24 20:56 Respiratory Rate 17 09/10/24 20:56 Blood Pressure 127/66 09/10/24 18:00 Pulse Oximetry 99 09/10/24 20:51 Oxygen Delivery Nasal Cannula 09/10/24 20:51 Oxygen Flow Rate 4 09/10/24 20:51 <Alexis Crocker MD - Last Filed: 09/10/24 22:02> Lab Data Lab results reviewed: Yes I reviewed the patient's lab results. <Alexis Crocker MD - Last Filed: 09/10/24 22:02> Result diagrams: 09/10/24 07:53 09/10/24 07:53 <Nicol Nguyen MD - Last Filed: 09/09/24 19:02> Labs: Lab Results 09/09/24 09/09/24 09/09/24 Range/Units 16:33 16:33 19:06 WBC 11.5 H (4.5-10.0) K/mm3 RBC 4.75 (4.2-5.4) M/mm3 Hgb 14.2 (12.0-15.0) g/dL Hct 44.6 (37.0-47.0) % MCV 93.9 (80-100) fl MCH 29.9 (26-34) pg MCHC 31.8 L (32-36) g/dl RDW 15.3 H (11.5-14.5) % Plt Count 172 (150-375) k/mm3 MPV 10.5 H (7.4-10.4) fl Immature Gran % (Auto) 0.3 (0-0.5) % Neut % (Auto) 82.7 H (45.5-73.1) % Lymph % (Auto) 10.7 L (18.3-44.2) % [place] % (Auto) 5.0 (2.6-8.5) % Eos % (Auto) 1.0 (0-4.4) % Baso % (Auto) 0.3 (0.2-1.2) % Lymph # (Auto) 1.23 (0.9-3.2) K/mm3 [place] # (Auto) 0.6 (0.1-0.6) K/mm3 Eos # (Auto) 0.1 (0-0.3) K/mm3 Baso # (Auto) 0.0 (0.0-0.1) K/mm3 Abs Immat Gran (auto) 0.04 H (0.00-0.031) K/mm3 Absolute Neuts (auto) 9.5 H (1.3-6.7) K/mm3 Absolute Nucleated RBC 0.000 (0.0-0.012) K/mm3 Nucleated RBC % 0.0 (0.0-0.2) % Sodium 136 L (137-145) mmol/L Potassium 4.4 (3.4-5.0) mmol/L Chloride 103 (98-107) mmol/L Carbon Dioxide 24 (22-30) mmol/L Anion Gap 9 (4-12) mmol/L BUN 11 (7-17) mg/dL Creatinine 1.30 H (0.7-1.0) mg/dL Estim Creat Clear Calc 73 ml/min Estimated GFR 43 L (59 - ) Glucose 206 H (65-110) mg/dL Lactic Acid 4.9 H* Cancelled 2.2 H (0.7-2.0) mmol/L Calcium 9.0 (8.4-10.2) mg/dL Total Bilirubin 1.0 (0.2-1.3) mg/dL AST 42 H (14-36) U/L ALT 34 (6-35) U/L Alkaline Phosphatase 70 (38-126) U/L Total Protein 8.0 (6.3-8.2) g/dL Albumin 3.8 (3.5-5.1) g/dL Urine Color Dark yellow (Yellow) Urine Appearance Cloudy H (Clear) Urine pH 5.0 (5.0-9.0) Ur Specific [place] 1.024 (1.001-1.035) Urine Protein 2+ H (Negative) mg/dL Urine Glucose (UA) 2+ H (Negative) mg/dL Urine Ketones 1+ H (Negative) mg/dL Ur Blood (Man) Negative (Negative) Urine Nitrate Negative (Negative) Urine Bilirubin 1+ H (Negative) Urine Urobilinogen 1.0 (<2.0) mg/dL Leukocyte Esterase Rfl Negative (Negative) NEAL/UL Urine RBC 3-5 H (0-2) /hpf Urine WBC 6-10 H (0-3) /hpf Ur Squamous Epith Cells Few (Few) /hpf Hyaline Casts Present (None) /lpf Influenza A (RT-PCR) Negative (Negative) Influenza B (RT-PCR) Negative (Negative) SARS-CoV-2 RNA (RT-PCR) Negative (Negative) <Nicol Nguyen MD - Last Filed: 09/09/24 19:02> Lab Results 09/09/24 09/09/24 09/09/24 Range/Units 16:33 16:33 19:06 WBC 11.5 H (4.5-10.0) K/mm3 RBC 4.75 (4.2-5.4) M/mm3 Hgb 14.2 (12.0-15.0) g/dL Hct 44.6 (37.0-47.0) % MCV 93.9 (80-100) fl MCH 29.9 (26-34) pg MCHC 31.8 L (32-36) g/dl RDW 15.3 H (11.5-14.5) % Plt Count 172 (150-375) k/mm3 MPV 10.5 H (7.4-10.4) fl Immature Gran % (Auto) 0.3 (0-0.5) % Neut % (Auto) 82.7 H (45.5-73.1) % Lymph % (Auto) 10.7 L (18.3-44.2) % [place] % (Auto) 5.0 (2.6-8.5) % Eos % (Auto) 1.0 (0-4.4) % Baso % (Auto) 0.3 (0.2-1.2) % Lymph # (Auto) 1.23 (0.9-3.2) K/mm3 [place] # (Auto) 0.6 (0.1-0.6) K/mm3 Eos # (Auto) 0.1 (0-0.3) K/mm3 Baso # (Auto) 0.0 (0.0-0.1) K/mm3 Abs Immat Gran (auto) 0.04 H (0.00-0.031) K/mm3 Absolute Neuts (auto) 9.5 H (1.3-6.7) K/mm3 Absolute Nucleated RBC 0.000 (0.0-0.012) K/mm3 Nucleated RBC % 0.0 (0.0-0.2) % Sodium 136 L (137-145) mmol/L Potassium 4.4 (3.4-5.0) mmol/L Chloride 103 (98-107) mmol/L Carbon Dioxide 24 (22-30) mmol/L Anion Gap 9 (4-12) mmol/L BUN 11 (7-17) mg/dL Creatinine 1.30 H (0.7-1.0) mg/dL Estim Creat Clear Calc 73 ml/min Estimated GFR 43 L (59 - ) Glucose 206 H (65-110) mg/dL Lactic Acid 4.9 H* Cancelled 2.2 H (0.7-2.0) mmol/L Calcium 9.0 (8.4-10.2) mg/dL Total Bilirubin 1.0 (0.2-1.3) mg/dL AST 42 H (14-36) U/L ALT 34 (6-35) U/L Alkaline Phosphatase 70 (38-126) U/L Total Protein 8.0 (6.3-8.2) g/dL Albumin 3.8 (3.5-5.1) g/dL Urine Color Dark yellow (Yellow) Urine Appearance Cloudy H (Clear) Urine pH 5.0 (5.0-9.0) Ur Specific [place] 1.024 (1.001-1.035) Urine Protein 2+ H (Negative) mg/dL Urine Glucose (UA) 2+ H (Negative) mg/dL Urine Ketones 1+ H (Negative) mg/dL Ur Blood (Man) Negative (Negative) Urine Nitrate Negative (Negative) Urine Bilirubin 1+ H (Negative) Urine Urobilinogen 1.0 (<2.0) mg/dL Leukocyte Esterase Rfl Negative (Negative) NEAL/UL Urine RBC 3-5 H (0-2) /hpf Urine WBC 6-10 H (0-3) /hpf Ur Squamous Epith Cells Few (Few) /hpf Hyaline Casts Present (None) /lpf Influenza A (RT-PCR) Negative (Negative) Influenza B (RT-PCR) Negative (Negative) SARS-CoV-2 RNA (RT-PCR) Negative (Negative) <Alexis Crocker MD - Last Filed: 09/10/24 22:02> Imaging Data Attestation: I personally reviewed and interpreted this imaging study as follows: < Alexis Crocker MD - Last Filed: 09/10/24 22:02> Critical Care Time Critical Care Time Critical Care Time: Yes <Alexis Crocker MD - Last Filed: 09/10/24 22:02> Total Critical Care Time: 60 <Alexis Crocker MD - Last Filed: 09/10/24 22:02> Discharge Plan Discharge Clinical Impression: Severe sepsis, Morbid obesity with body mass index (BMI) greater than or equal to 70 in adult, Chronic wound of extremity <Nicol Nguyen MD - Last Filed: 09/09/24 19:02> Patient Disposition: Still a Patient <Nicol Nguyen MD - Last Filed: 09/09/24 19:02> Condition: Serious <Nicol Nguyen MD - Last Filed: 09/09/24 19:02>
[2024-09-09 19:27] LABS: Lactic Acid Reflex 2.2 mmol/L (0.7-2.0)
[2024-09-09 19:40] LABS: Reflex Lactic Acid Yes or No Add Lactic
[2024-09-09 19:41] LABS: Add Urine Microscopic? YES; Appearance Urine Cloudy (Clear); Bilirubin Urine 1+ (Negative); Blood Urine Negative (Negative); Color Urine Dark Yellow (Yellow); Glucose Urine UA 2+ mg/dL (Negative); Ketones Urine 1+ mg/dL (Negative); Leukocyte Esterase Ur Negative LEU/UL (Negative); Nitrate Urine Negative (Negative); Protein Urine 2+ mg/dL (Negative); Specific Grav Ur 1.024 (1.001-1.035)
[2024-09-09 19:51] LABS: Hyaline Casts Urine Present /lpf
[2024-09-09 19:52] LABS: Squamous Epithelial Cell Urine Few /hpf (Few)
[2024-09-09] MEDS: PIPERACILLIN/TAZ 4.5G/NS 100ML 4.5 GM/100 ML BAG IVPB (20:00)
[2024-09-09] MEDS: VANCOMYCIN 1,500 MG/NS 500 ML 1,500 MG/500 ML BAG 250 MG IVPB (22:11)
--- NOTE | 2024-09-09 22:16 | PC.NURSE ---
Vancomycin administration started late due to this RN having high patient load and being unable to delegate task to another RN.
[2024-09-10] VITALS (19 sets, daily range): BP systolic 82–150; BP diastolic 41–87; PULSE 72–95; RESP 15–25; TEMP 37.1–37.6; O2SAT 93–100; BMI 75.5
--- NOTE | 2024-09-10 | ECHO_ITS ---
Patient Info Name: Susan Mo Age: 53 years : 1970 Gender: Female Ht: 61 in Wt: 399 lbs BSA: 2.93 m2 HR: 86 bpm BP: 111 / 55 mmHg Technical Quality: Poor Exam Date: 09/10/2024 10:37 AM Exam Location: Echo Lab Patient Status: Inpatient Admit Date: 09/09/2024 Staff Ordering Physician: Raquel Weems MD Crating And Moving Estimator: Teetee Marie RDCS Attending Provider: Jose Bragg MD Referring Physician: Dank SAUNDERS; Exam Type: CA echo dop color flow w con Study Info Indications - SEVERE SEPSIS Complete two-dimensional, color flow and Doppler transthoracic echocardiogram is performed with contrast to opacify the left ventricle and to improve the deliniation of the left ventricle endocardial borders. Contrast/Agitated Saline Contrast/Ag. Saline: Definity Amount: 2.00 ml Existing IV Access: Yes Reason for Poor Study: patient body habitus Summary 1. Technically suboptimal study due to poor sonographic images. 2. Definity contrast administered improved wall motion interpretation. 3. Left ventricular chamber dimension is normal. 4. Left ventricular systolic function is normal, estimated at 60-65%. 5. The left ventricular diastolic function is normal. 6. E/e' 7 is not elevated. Left Ventricle Technically suboptimal study due to poor sonographic images. E/e' 7 is not elevated. Definity contrast administered improved wall motion interpretation. Left ventricular chamber dimension is normal. Left ventricular systolic function is normal, estimated at 60-65%. The left ventricular diastolic function is normal. Right Ventricle Right ventricular chamber dimension is not well visualized. Left Atria Left atrial chamber dimension is normal. Right Atria Right atrial chamber dimension is not well visualized. Aortic Valve The aortic valve is not well visualized. Cannot determine number of aortic valve leaflets. There is no aortic valve stenosis. There is no aortic valve regurgitation. Pulmonic Valve The pulmonic valve is not well visualized. Mitral Valve The mitral valve has not well visualized. There is no mitral valve stenosis. There is no mitral valve regurgitation. Tricuspid Valve The tricuspid valve leaflets are not well visualized. Pericardium/Pleural There is no pericardial effusion. Inferior Vena Cava Inferior vena cava is not well visualized. Aorta The aortic root size at the sinus of Valsalva is normal. Left Ventricular Outflow Tract Name Value Normal LVOT Doppler LVOT Peak Gradient 2 mmHg LVOT Mean Gradient 1 mmHg LVOT VTI 16.79 cm LVOT VTI/AV VTI Ratio 0.70 Pulmonic Valve Name Value Normal RVOT Doppler RVOT Peak Gradient 2 mmHg PV Doppler PV Peak Gradient 3 mmHg Mitral Valve Name Value Normal MV Doppler MV Decel [place] 596.93 cm/s2 MV PHT 0 s MV Area (PHT) 6.27 cm2 4.00-5.00 MV Diastolic Function MV E Peak Velocity 72.20 cm/s MV A Peak Velocity 77.85 cm/s MV E/A 0.93 MV Decel Time 0 s MV Annular TDI MV E/e' (Septal) 8.41 <=8.00 MV E/e' (Lateral) 7.19 <=8.00 MV E/e' (Average) 7.80 Aorta Name Value Normal Ascending Aorta Ao Root Diameter (MM) 3.70 cm Ao Root Diam Index (MM) 1.26 cm/m2 Aortic Valve Name Value Normal AV Doppler AV Peak Velocity 118.27 cm/s AV Peak Gradient 6 mmHg AV Mean Gradient 3 mmHg AV VTI 23.95 cm Atria Name Value Normal LA Dimensions LA Dimension (MM) 2.33 cm 2.70-3.80 Report Signatures
[2024-09-10 00:38] LABS: Lactic Acid 1.7 mmol/L (0.7-2.0)
--- NOTE | 2024-09-10 00:40 | ADMGEN ---
This patient, Susan Mo, was admitted to Intensive Care Unit-8. Patient/family oriented to hospital policies and general routines including ID bracelet, bed and alarms, visiting hours, pain management, procedures, bathroom and other care routines, personal items, smoking policy, room service/diet, and visiting hours. Information on how to activate the Rapid Response Team has been discussed. Patient/Family are encouraged to report perceived risks to care and to ask questions if they do not understand what they are told or what they should do. Received report from Rosaline Sosa at [id number], patient arrived at 0000 via stretcher without issue.
[2024-09-10] MEDS: LACTATED RINGERS 1,000 ML 125 ML IV CONT ×2 (00:42→08:12)
--- NOTE | 2024-09-10 00:48 | P.HP_ITS ---
H&P: HPI History of Present Illness Date/Time: 09/10/24 00:48 Chief Complaint: Nausea and vomiting Narrative: This is a 53-year-old female with past medical history significant for morbid obesity, type diabetes mellitus, COPD, DJD, obstructive sleep apnea, hypertension, chronic bilateral lower extremity ulcers. Patient presents to the emergency room due to nausea, vomiting ,chills ,generalized malaise, generalized weakness, bilateral lower extremity pain, this has been ongoing for the last week or so but worse in the last 3 days. Upon presentation to emergency room patient was found to low blood pressure. Patient has been started in early goal-directed therapy, preliminary workup has been essentially nonrevealing. Patient has been admitted for further evaluation management and treatment. EXAMINATION: CT chest abdomen pelvis wo con DATE: 09/09/2024 18:43 INDICATION: Infection. TECHNIQUE: Computed tomography (CT) of the chest, abdomen, and pelvis was performed without intravenous contrast. Automated exposure control and iterative reconstruction technique were employed. The dose-length product was 2188.37 mGy- cm. COMPARISON: CT abdomen and pelvis 09/03/2019 FINDINGS: CHEST CT: The lungs demonstrate mild atelectasis. No pleural effusion. The heart size is normal. There are coronary artery calcifications. No pericardial effusion. There is mild thoracic spondylosis. ABDOMEN/PELVIS CT: There is diffuse hepatic steatosis. There are changes of cholecystectomy. The spleen, pancreas, adrenal glands, and kidneys are normal. There is no urolithiasis. There is diverticulosis of the colon without evidence of diverticulitis. There are changes of appendectomy. There is mild aortocaval, right common and external iliac, and right inguinal lymphadenopathy. There is no ascites. There is mild lumbar spondylosis. IMPRESSION: 1. Diffuse hepatic steatosis. 2. Mild retroperitoneal and right pelvic lymphadenopathy, likely reactive. EXAMINATION: XR chest 1V portable DATE: 09/09/2024 16:32 INDICATION: Cough. Dyspnea. TECHNIQUE: A single frontal view of the chest was obtained on 2 radiographs. COMPARISON: CT abdomen and pelvis 09/03/2019 FINDINGS: Sensitivity is decreased by obesity. There is chronic mild elevation of right hemidiaphragm. No pneumonia, pleural effusion, or pneumothorax. Cardiomegaly is noted. IMPRESSION: 1. Cardiomegaly. Review of Systems Review of Systems: Generalized malaise, chills, generalized weakness, nausea, vomiting. PMFSH Past Medical History Medical History BMI 70 and over, adult Chronic obstructive pulmonary disease Diabetes type 2, controlled HTN (hypertension) Kidney stone Left knee DJD Right knee DJD Sleep apnea Surgical History Surgical History History of appendectomy History of partial hysterectomy Hx of cholecystectomy Hx of tonsillectomy Family History Family History (Updated 09/10/24 @ 01:03 by Maurilio Sanabria RN) Father Kidney failure Mother Hypertension Mother Diabetes mellitus Social History Social History Smoking packs per day: 1 Smoking cigarettes per day: 20.0 Years smoked: 29 Smoking pack-years: 29.00 Smoking status: Former smoker Tobacco type: cigarettes Smoking end date: 09/29/17 Alcohol intake: current Drinks per week: 1 Substance use: never Substance use type: does not use Do You Feel Safe in your Home?: Yes Lack of Transportation: YES Lack of Food: Never True Current Housing: I Have Housing Concerned About Future Housing: No Difficulty Paying Gas/Electric Bills: No Difficulty Paying for Meds: No Currently Unemployed: No Education: High School Diploma/GED Difficulty w/ Childcare or Family Care: No Living arrangements: with family Gender identity (if verbalized by the patient): Female Spiritual care concerns: No Meds Home Medications and Allergies Home Medications ?Medication ?Instructions ?Recorded ?Confirmed ?Type baclofen 10 mg tablet 10 mg PO DAILY 04/12/24 07/15/24 History bumetanide 1 mg tablet 1 mg PO DAILY 04/12/24 07/15/24 History calcium 500 mg (as 1 tablet PO BID 04/12/24 07/15/24 History carbonate)-vitamin D3 5 mcg (200 unit) tablet ([place] 500/D) lisinopril 10 mg tablet 10 mg PO DAILY 04/12/24 07/15/24 History magnesium oxide 500 mg capsule 500 mg PO BID 04/12/24 07/15/24 History metoprolol succinate 100 mg 100 mg PO DAILY 04/12/24 07/15/24 History tablet,extended release 24 hr niacinamide 500 mg tablet 500 mg PO TID 04/12/24 07/15/24 History pioglitazone 30 mg tablet 30 mg PO DAILY 04/12/24 07/15/24 History prednisone 2.5 mg tablet 2.5 mg PO DAILY 04/12/24 07/15/24 History tramadol 200 mg capsule 200 mg PO DAILY PRN Pain 04/12/24 07/15/24 History 24h,extended release(25-75) turmeric root extract 500 mg 500 mg PO DAILY 04/12/24 07/15/24 History capsule zinc acetate 50 mg (zinc) capsule 50 mg PO DAILY 04/12/24 07/15/24 History ondansetron 4 mg disintegrating 4 mg PO Q8H PRN nausea and 04/20/24 07/15/24 Rx tablet vomiting #60 tabs nystatin 100,000 unit/gram topical 1 applic topical BID 05/06/24 07/15/24 History cream nystatin 100,000 unit/gram topical 1 applic topical DAILY 05/06/24 07/15/24 History powder (Nystop) diclofenac sodium 1 % topical gel 2 g topical QID #100 grams 07/12/24 07/15/24 Rx doxycycline hyclate 100 mg tablet 100 mg PO DAILY 07/12/24 07/15/24 History lidocaine 5 % topical patch 1 patch topical DAILY #30 ea 07/12/24 07/15/24 Rx empagliflozin 10 mg tablet 10 mg PO DAILY 07/15/24 07/15/24 History (Jardiance) Allergies Allergy/AdvReac Type Severity Reaction Status Date / Time clindamycin Allergy Mild Unknown Verified 07/15/24 13:53 erythromycin base Allergy Mild Nausea and Verified 07/15/24 13:53 Vomiting Sulfa (Sulfonamide Allergy Mild Unknown Verified 07/15/24 13:53 Antibiotics) Vital Signs Vital Signs - 24 hr 09/09/24 16:09 09/09/24 16:15 09/09/24 16:16 Temperature 100.2 F H Pulse Rate 130 H 130 H Respiratory Rate 24 H 20 Blood Pressure 114/77 Pulse Oximetry 100 Oxygen Delivery Nasal Cannula Oxygen Flow Rate 4 4 09/09/24 18:01 09/09/24 18:05 09/09/24 18:58 Temperature Pulse Rate 108 H 102 H 98 Respiratory Rate 20 17 22 H Blood Pressure 79/21 L 94/47 L 91/45 L Pulse Oximetry 98 97 97 Oxygen Delivery Oxygen Flow Rate 09/09/24 19:01 09/09/24 19:02 09/09/24 19:10 Temperature Pulse Rate 96 95 Respiratory Rate 19 17 Blood Pressure 83/43 L 86/43 L Pulse Oximetry 97 96 100 Oxygen Delivery Nasal Cannula Oxygen Flow Rate 4 09/09/24 19:31 09/09/24 19:32 09/09/24 20:12 Temperature Pulse Rate 97 96 102 H Respiratory Rate 16 19 22 H Blood Pressure 86/47 L 97/59 L Pulse Oximetry 97 99 99 Oxygen Delivery Oxygen Flow Rate 09/09/24 21:33 09/09/24 22:01 09/09/24 23:02 Temperature Pulse Rate 92 90 88 Respiratory Rate 17 19 16 Blood Pressure 121/61 Pulse Oximetry 100 100 100 Oxygen Delivery Oxygen Flow Rate 09/09/24 23:30 09/10/24 00:11 Temperature 99.6 F Pulse Rate 86 90 Respiratory Rate 16 21 H Blood Pressure 122/66 Pulse Oximetry 100 100 Oxygen Delivery Oxygen Flow Rate Exam Narrative: Patient is laying in a stretcher Const: General: cooperative, comfortable, no acute distress, well developed, alert, awake, ill appearing chronically and obese (Morbidly obese) Nutritional Appearance: obese morbidly obese Orientation/consciousness: patient oriented x3 HENMT: Head: normal to inspection, normocephalic and atraumatic Ears: hearing grossly normal bilaterally Face/Nose/Sinus: normal facial exam Face and sinus: normal facial exam Eyes: General: appearance normal, both eyes and all related structures Pupils: Equal, round and reactive pupils present EOM: EOMs intact bilaterally Neck: Neck: full ROM, no lymphadenopathy and no JVD Thyroid: thyroid normal Lymphatic: no lymphadenopathy noted Resp: Effort & Inspection: normal respiratory effort and able to speak in complete sentences Auscultation: clear to auscultation bilaterally Cardio: Jugular venous distension: no JVD Rate: regular rate Rhythm: regular rhythm Heart sounds: S1 normal heart sound present and S2 normal heart sound present GI: GI Palp: Yes Soft to palpation and Yes No hepatosplenomegaly present : General: Yes deferred Skin: Rashes: no rashes Wounds: wounds noted (Multiple wounds in bilateral lower extremities) Neuro: General: patient oriented x3 and CN's II-XI intact bilaterally Crani al nerves: Yes CN's II-XII intact bilaterally and Yes Equal, round and reactive pupils present Cognition (Neuro): normal cognition Speech: normal speech Gait exam (Neuro): Unable to assess gait Motor exam (neuro): 5/5 motor strength present throughout Extrem: General: normal to inspection, full ROM, no joint enlargement and no pedal edema Other: Bilateral lower extremity wounds H&P: Results Labs Labs: Short CBC 09/09/24 Range/Units 16:33 WBC 11.5 H (4.5-10.0) K/mm3 Hgb 14.2 (12.0-15.0) g/dL Hct 44.6 (37.0-47.0) % Plt Count 172 (150-375) k/mm3 BMP 09/09/24 16:33 Sodium 136 L Potassium 4.4 Chloride 103 Carbon Dioxide 24 BUN 11 Creatinine 1.30 H Glucose 206 H Calcium 9.0 Liver Function 09/09/24 Range/Units 16:33 Total Bilirubin 1.0 (0.2-1.3) mg/dL AST 42 H (14-36) U/L ALT 34 (6-35) U/L Alkaline Phosphatase 70 (38-126) U/L Albumin 3.8 (3.5-5.1) g/dL Urine 09/09/24 Range/Units 19:06 Urine Color Dark yellow (Yellow) Urine Appearance Cloudy H (Clear) Urine pH 5.0 (5.0-9.0) Ur Specific [place] 1.024 (1.001-1.035) Urine Protein 2+ H (Negative) mg/dL Urine Glucose (UA) 2+ H (Negative) mg/dL Assessment and Plan Assessment and plan (1) Sepsis: Code(s): A41.9 - Sepsis, unspecified organism Status: Acute Assessment and Plan: Admit to ICU Likely source is wounds in bilateral lower extremities Started on broad-spectrum antibiotics Await cultures Early goal-directed therapy ongoing (2) Sleep apnea: Code(s): G47.30 - Sleep apnea, unspecified Status: Acute Assessment and Plan: CPAP at nighttime (3) Diabetes type 2, controlled: Code(s): E11.9 - Type 2 diabetes mellitus without complications Status: Acute Assessment and Plan: Insulin sliding scale as needed Patient is on oral hypoglycemics at home (4) HTN (hypertension): Code(s): I10 - Essential (primary) hypertension Status: Acute Assessment and Plan: Will hold lisinopril Will hold bumetanide Will hold metoprolol Patient is hypotensive upon presentation to emergency room (5) Chronic obstructive pulmonary disease: Code(s): J44.9 - Chronic obstructive pulmonary disease, unspecified Status: Acute Assessment and Plan: Breathing treatments (6) Morbid obesity with body mass index (BMI) greater than or equal to 70 in adult: Code(s): E66.01 - Morbid (severe) obesity due to excess calories; Z68.45 - Body mass index [BMI] 70 or greater, adult Status: Acute Assessment and Plan: 1800 calorie restricted diet Hospitalist MIPS Advance Care Plan I have confirmed that the patient's Advanced Care Plan is present, code status is documented, or surrogate decision maker is listed in patient medical record.: Yes Medication Reconciliation I have utilized all available resources to obtain, update and review the patients current medications (includes all prescriptions, OTC, herbals, cannabis, and nutritional supplements).: Yes
[2024-09-10 00:54] LABS: Glucose Point of Care 125 mg/dl (65-105)
[2024-09-10] MEDS: KETOROLAC 30 MG/ML VIAL (*BKC) IV PUSH (01:15)
[2024-09-10] MEDS: IMIPRAMINE HCL 25 MG TABLET 75 MG PO (01:18)
[2024-09-10] MEDS: SODIUM CHLORIDE 0.9% IV 1,000 ML 999 ML IV CONT (02:16)
[2024-09-10 02:35] LABS: MRSA (PCR) NOT DETECTED (NOT DETECTE)
[2024-09-10 05:03] LABS: Estimated CRCL calculation 67 ml/min; Estimated Glomerular Filt Rate 39
[2024-09-10] MEDS: ALBUMIN HUMAN 25% 25 GM/100 ML 100 ML IVPB ×3 (08:11→17:20)
[2024-09-10] MEDS: PIPERACILLN/TAZ 3.375GM/NS50ML 3.375 GM/50 ML BAG IVPB ×3 (08:11→17:20)
[2024-09-10 08:17] LABS: Basophils Percent Auto 0.4 % (0.2-1.2); Eosinophils Percent Auto 0.1 % (0-4.4); Hematocrit 38.1 % (37.0-47.0); Hemoglobin 11.9 g/dL (12.0-15.0); Immature Granulocyte Absolute 0.03 K/mm3 (0.00-0.031); Immature Granulocyte Percent A 0.3 % (0-0.5); Immature Platelet Fraction Pct 4.7 % (0.9-11.2); Lymphocytes Absolute Auto 2.51 K/mm3 (0.9-3.2); Lymphocytes Percent Auto 25.2 % (18.3-44.2); Mean Corpuscular HGB Conc 31.2 g/dl (32-36); Mean Corpuscular Hemoglobin 29.2 pg (26-34); Mean Corpuscular Volume 93.6 fl (80-100); Mean Platelet Volume 10.4 fl (7.4-10.4); Monocytes Absolute Auto 1.1 K/mm3 (0.1-0.6); Monocytes Percent Auto 10.6 % (2.6-8.5); Neutrophils Absolute Auto 6.3 K/mm3 (1.3-6.7); Neutrophils Percent Auto 63.4 % (45.5-73.1); Platelet Count Result 139 k/mm3 (150-375); Red Blood Count 4.07 M/mm3 (4.2-5.4); Red Cell Distribution Width 15.5 % (11.5-14.5)
[2024-09-10 08:18] LABS: Lactic Acid Reflex 0.8 mmol/L (0.7-2.0)
[2024-09-10 08:26] LABS: Alanine Aminotransferase 25 U/L (6-35); Albumin Level 2.8 g/dL (3.5-5.1); Alkaline Phosphatase 47 U/L (38-126); Aspartate Amino Transferase 31 U/L (14-36); Blood Urea Nitrogen 14 mg/dL (7-17); Calcium 7.8 mg/dL (8.4-10.2); Carbon Dioxide 27 mmol/L (22-30); Chloride 106 mmol/L (98-107); Estimated CRCL calculation 67 ml/min; Estimated Glomerular Filt Rate 39
[2024-09-10 08:27] LABS: Anion Gap 3 mmol/L (4-12); Bilirubin,Total 0.7 mg/dL (0.2-1.3); Glucose 141 mg/dL (65-110); Phosphorus 4.1 mg/dL (2.5-4.5); Potassium 4.3 mmol/L (3.4-5.0); Sodium 136 mmol/L (137-145)
[2024-09-10 08:33] LABS: CRP 18.4 mg/dL (<1.0)
[2024-09-10] MEDS: PERFLUTREN LIPID MICROSPHERES 1.5 ML VIAL DILUTED TO 10 ML TOTAL VOLUME IV PUSH (10:30)
--- NOTE | 2024-09-10 10:58 | P.CONIN_ITS ---
Assessment and Plan Assessment and plan (1) Severe sepsis: Code(s): A41.9 - Sepsis, unspecified organism; R65.20 - Severe sepsis without septic shock Status: Acute Assessment and Plan: Patient with severe sepsis, likely etiology is wounds, CTA chest abdomen pelvis did not reveal any source of infection. Bilateral lower extremity x-rays did not show any osteomyelitis -patient received a total of 4 L of IV fluids between ER in ICU -blood pressures remain stable a G-tube placed central line and start vasopressors -will give some albumin for volume expansion if needed -09/09: Blood cultures in the obtained and pending -09/10: Will order wound culture -patient started on empiric vancomycin and Zosyn (09/09), will deescalate once cultures are resulted (2) Sleep apnea: Code(s): G47.30 - Sleep apnea, unspecified Status: Acute Assessment and Plan: CPAP/BiPAP at night or when asleep (3) Diabetes type 2, controlled: Code(s): E11.9 - Type 2 diabetes mellitus without complications Status: Acute Assessment and Plan: Sliding scale insulin and Accu-Cheks (4) Chronic obstructive pulmonary disease: Code(s): J44.9 - Chronic obstructive pulmonary disease, unspecified Status: Acute Assessment and Plan: Will place patient on bronchodilators (5) Chronic wound of extremity: Status: Acute Assessment and Plan: -Will obtain wound culture -consult wound care team for evaluation and recommendations of wound care -surgery has been consulted -continue antibiotics as above X-rays of bilateral lower extremities did not reveal any osteomyelitis, gas Plan DVT prophylaxis: Lovenox Stress ulcer prophylaxis: Not indicated Nutrition: Diabetic diet Code Status: Full Critical Care Time Spent: 49 minutes Discussed with KIM, in rounds, updated with patient's condition and plan of care. I answered all his questions Due to a high probability of clinically significant, life threatening deterioration, the patient required my highest level of preparedness to intervene emergently and I personally spent this critical care time directly and personally managing the patient. This critical care time included obtaining a history; examining the patient; pulse oximetry; ordering and review of studies; arranging urgent treatment with development of a management plan; evaluation of patient's response to treatment; frequent reassessment; and discussions with other providers. It was exclusive of separately billable procedures and treating other patients and teaching time. Please see Assessment and Plan section and the rest of the note for further information on patient assessment and treatment This dictation may have been done utilizing a voice recognition system. Attempts have been made to correct errors. However, there may be uncorrected grammatical, spelling, and recognitions errors present. Stick [employer]der Consult Note Consult date: 09/10/24 Reason for consult: Nausea, vomiting, fevers, chills, shortness of breath, URI symptoms, severe sepsis HPI: Susan Mo is a 53 year old female with history of morbid obesity, type 2 diabetes, COPD, DJD, history of kidney stones, sleep apnea, chronic bilateral lower extremity wounds which she has been battling for 8-10 years and goes to [facility] essential hypertension presented the ED on 09/09/2024 evening with a 1 day of fevers, chills, nausea, vomiting, URI symptoms. Denied any dysuria, abdominal pain, chest pain. Patient has chronic lower extremity wounds bilaterally. In the ER patient was febrile to 37.9? C, tachycardic, tachypneic. She received 2 L IV fluid bolus with improvement in her heart rate, blood pressures dropped and she was given an additional IV fluid bolus with adequate blood pressures. WBC count of 11.5, hemoglobin and platelets were within normal limits. BUN 11, Creatinine 1.30, CO2 24. Lactic acid initially was 4.9, repeat lactic acid was 2.2. LFTs were normal, UA was not reflective of UTI. Patient did have lower extremity wounds with serosanguineous blisters, lower extremity wounds were tender to palpation and weeping fluid. CT scan of the chest abdomen and pelvis did not show any definite source of infection. X- rays of bilateral lower extremities and not show any osteomyelitis or gas in tissues. Patient was started on vancomycin and Zosyn, received total of 3 L of IV fluids in the ER and was transferred to the ICU for further management Patient seen and examined the ICU this morning, overnight she received the 4 L of IV fluids as her blood pressures slightly low after which a blood pressures have remained stable. Patient denies any chest pain, shortness a breath, abdominal pain, nausea, vomiting at this time states she feels much better than when she came to the hospital. States she is hungry, urine output has been adequate, afebrile. Patient denies any tobacco use, illicit/recreational drug use. Rare rare alcohol use Review of Systems 2 Review of Systems: All systems reviewed & are unremarkable except as noted in HPI and below PMFSH Past Medical History Medical History BMI 70 and over, adult Chronic obstructive pulmonary disease Diabetes type 2, controlled HTN (hypertension) Kidney stone Left knee DJD Right knee DJD Sleep apnea Surgical History Surgical History History of appendectomy History of partial hysterectomy Hx of cholecystectomy Hx of tonsillectomy Family History Family History (Updated 09/10/24 @ 01:03 by Maurilio Sanabria RN) Father Kidney failure Mother Hypertension Mother Diabetes mellitus Social History Social History Smoking packs per day: 1 Smoking cigarettes per day: 20.0 Years smoked: 29 Smoking pack-years: 29.00 Smoking status: Former smoker Tobacco type: cigarettes Smoking end date: 09/29/17 Alcohol intake: current Drinks per week: 1 Substance use: never Substance use type: does not use Do You Feel Safe in your Home?: Yes Lack of Transportation: YES Lack of Food: Never True Current Housing: I Have Housing Concerned About Future Housing: No Difficulty Paying Gas/Electric Bills: No Difficulty Paying for Meds: No Currently Unemployed: No Education: High School Diploma/GED Difficulty w/ Childcare or Family Care: No Living arrangements: with family Gender identity (if verbalized by the patient): Female Spiritual care concerns: No Meds Home Medications and Allergies Home Medications ?Medication ?Instructions ?Recorded ?Confirmed ?Type baclofen 10 mg tablet 10 mg PO Q12H 04/12/24 09/10/24 History bumetanide 1 mg tablet 1 mg PO DAILY 04/12/24 09/10/24 History calcium 500 mg (as 1 tablet PO Q12H 04/12/24 09/10/24 History carbonate)-vitamin D3 5 mcg (200 unit) tablet (Oysco 500/D) lisinopril 10 mg tablet 10 mg PO DAILY 04/12/24 09/10/24 History magnesium oxide 500 mg capsule 500 mg PO Q12H 04/12/24 09/10/24 History metoprolol succinate 100 mg 100 mg PO DAILY 04/12/24 09/10/24 History tablet,extended release 24 hr niacinamide 500 mg tablet 500 mg PO TID 04/12/24 09/10/24 History pioglitazone 30 mg tablet 30 mg PO DAILY 04/12/24 09/10/24 History prednisone 2.5 mg tablet 2.5 mg PO DAILY 04/12/24 09/10/24 History tramadol 200 mg capsule 200 mg PO DAILY PRN Pain 04/12/24 09/10/24 History 24h,extended release(25-75) turmeric root extract 500 mg 500 mg PO DAILY 04/12/24 09/10/24 History capsule zinc acetate 50 mg (zinc) capsule 50 mg PO DAILY 04/12/24 09/10/24 History ondansetron 4 mg disintegrating 4 mg PO Q8H PRN nausea and 04/20/24 09/10/24 Rx tablet vomiting #60 tabs doxycycline hyclate 100 mg tablet 100 mg PO DAILY 07/12/24 09/10/24 History empagliflozin 10 mg tablet 10 mg PO DAILY 07/15/24 09/10/24 History (Jardiance) diclofenac sodium 1 % topical gel 2 g topical QID PRN pain 09/10/24 09/10/24 History fluconazole 100 mg tablet mg 09/10/24 History hydroxyzine HCl 10 mg tablet mg 09/10/24 History magnesium oxide 400 mg (241.3 mg 400 mg PO Q12H 09/10/24 09/10/24 History magnesium) tablet Allergies Allergy/AdvReac Type Severity Reaction Status Date / Time clindamycin Allergy Mild Unknown Verified 07/15/24 13:53 erythromycin base Allergy Mild Nausea and Verified 07/15/24 13:53 Vomiting Sulfa (Sulfonamide Allergy Mild Unknown Verified 07/15/24 13:53 Antibiotics) Vital Signs Vital Signs - 24 hr 09/09/24 16:09 09/09/24 16:15 09/09/24 16:16 Temperature 100.2 F H Pulse Rate 130 H 130 H Respiratory Rate 24 H 20 Blood Pressure 114/77 Pulse Oximetry 100 Oxygen Delivery Nasal Cannula Oxygen Flow Rate 4 4 09/09/24 18:01 09/09/24 18:05 09/09/24 18:58 Temperature Pulse Rate 108 H 102 H 98 Respiratory Rate 20 17 22 H Blood Pressure 79/21 L 94/47 L 91/45 L Pulse Oximetry 98 97 97 Oxygen Delivery Oxygen Flow Rate 09/09/24 19:01 09/09/24 19:02 09/09/24 19:10 Temperature Pulse Rate 96 95 Respiratory Rate 19 17 Blood Pressure 83/43 L 86/43 L Pulse Oximetry 97 96 100 Oxygen Delivery Nasal Cannula Oxygen Flow Rate 4 09/09/24 19:31 09/09/24 19:32 09/09/24 20:12 Temperature Pulse Rate 97 96 102 H Respiratory Rate 16 19 22 H Blood Pressure 86/47 L 97/59 L Pulse Oximetry 97 99 99 Oxygen Delivery Oxygen Flow Rate 09/09/24 21:33 09/09/24 22:01 09/09/24 23:02 Temperature Pulse Rate 92 90 88 Respiratory Rate 17 19 16 Blood Pressure 121/61 Pulse Oximetry 100 100 100 Oxygen Delivery Oxygen Flow Rate 09/09/24 23:30 09/10/24 00:11 09/10/24 00:11 Temperature 99.6 F Pulse Rate 86 90 89 Respiratory Rate 16 21 H Blood Pressure 122/66 Pulse Oximetry 100 100 Oxygen Delivery Oxygen Flow Rate 09/10/24 02:00 09/10/24 02:00 09/10/24 02:30 Temperature Pulse Rate 90 90 94 Respiratory Rate 16 15 Blood Pressure 82/41 L 99/52 L Pulse Oximetry 96 95 Oxygen Delivery Oxygen Flow Rate 09/10/24 04:00 09/10/24 04:00 09/10/24 04:00 Temperature 99 F Pulse Rate 95 92 94 Respiratory Rate 18 17 Blood Pressure 101/59 L Pulse Oximetry 94 93 Oxygen Delivery Nasal Cannula Oxygen Flow Rate 4 09/10/24 06:00 09/10/24 06:00 09/10/24 08:00 Temperature 99.2 F Pulse Rate 86 86 74 Respiratory Rate 15 18 Blood Pressure 111/55 L 100/55 L Pulse Oximetry 96 98 Oxygen Delivery Oxygen Flow Rate 09/10/24 08:00 09/10/24 08:05 09/10/24 10:00 Temperature Pulse Rate 80 80 91 Respiratory Rate 15 Blood Pressure Pulse Oximetry 100 Oxygen Delivery Nasal Cannula Oxygen Flow Rate 4 09/10/24 10:00 Temperature Pulse Rate 91 Respiratory Rate 17 Blood Pressure 110/62 Pulse Oximetry 98 Oxygen Delivery Oxygen Flow Rate Exam 2 Narrative: General: Pleasant female in no acute distress, morbidly obese HEENT:? Pupils equal and reactive Neck:? Thick neck Respiratory:? coarse breath sounds and decreased breath sounds at bases, otherwise clear to auscultation Cardiac:? S1-S2 normal, regular rate and rhythm Abdomen:? Morbidly obese, soft, nontender, distended bowel sounds Extremities:? bilateral pedal pulses are positive Neuro:? Patient is awake, alert, oriented, nonfocal, answers to questions appropriately and follows simple commands in all extremities Skin:? Bilateral lower extremity wounds and blisters, macerated scan, no crepitus Psych:? Normal affect, mood and mentation Results Labs 09/10/24 07:53 09/10/24 07:53 Labs: Short CBC 09/09/24 09/10/24 Range/Units 16:33 07:53 WBC 11.5 H 10.0 (4.5-10.0) K/mm3 Hgb 14.2 11.9 L (12.0-15.0) g/dL Hct 44.6 38.1 (37.0-47.0) % Plt Count 172 139 L (150-375) k/mm3 BMP 09/09/24 09/10/24 09/10/24 16:33 04:50 07:53 Sodium 136 L 136 L Potassium 4.4 4.3 Chloride 103 106 Carbon Dioxide 24 27 BUN 11 14 Creatinine 1.30 H 1.40 H 1.40 H Glucose 206 H 141 H Calcium 9.0 7.8 L Liver Function 09/09/24 09/10/24 Range/Units 16:33 07:53 Total Bilirubin 1.0 0.7 (0.2-1.3) mg/dL AST 42 H 31 (14-36) U/L ALT 34 25 (6-35) U/L Alkaline Phosphatase 70 47 (38-126) U/L Albumin 3.8 2.8 L (3.5-5.1) g/dL Urine 09/09/24 Range/Units 19:06 Urine Color Dark yellow (Yellow) Urine Appearance Cloudy H (Clear) Urine pH 5.0 (5.0-9.0) Ur Specific [place] 1.024 (1.001-1.035) Urine Protein 2+ H (Negative) mg/dL Urine Glucose (UA) 2+ H (Negative) mg/dL
[2024-09-10 11:22] LABS: Glucose Point of Care 139 mg/dl (65-105)
[2024-09-10] MEDS: ACETAMINOPHEN 325 MG TABLET 650 MG PO (11:56)
[2024-09-10] MEDS: ENOXAPARIN 40 MG/0.4 ML SYRINGE SUB-Q (11:58)
--- NOTE | 2024-09-10 12:46 | IVDEFINITY ---
Prior to administration of IV Definity the patient was educated on the risks and benefits of the imaging enhancing agent including potential adverse side effects. The patient verbalized understanding. Allergies were verified. No exclusion criteria were identified and at least one of the following inclusion criteria were met: 1) physician request, 2) patient technically difficult to image (per the [employer] guidelines of two or more segments not discernable within the apical view), or 3) questionable left ventricular function. ?
--- NOTE | 2024-09-10 14:55 | PM.IMPN ---
Progress Note: A&P Assessment and Plan (1) Severe sepsis: Code(s): A41.9 - Sepsis, unspecified organism; R65.20 - Severe sepsis without septic shock Status: Acute Assessment and Plan: Patient with severe sepsis, likely etiology is wounds, CTA chest abdomen pelvis did not reveal any source of infection. Bilateral lower extremity x-rays did not show any osteomyelitis -patient received a total of 4 L of IV fluids between ER in ICU on empiric vancomycin and zosyn. wound culture and blood culture. (2) Sleep apnea: Code(s): G47.30 - Sleep apnea, unspecified Status: Acute Assessment and Plan: CPAP/BiPAP at night or when asleep (3) Diabetes type 2, controlled: Code(s): E11.9 - Type 2 diabetes mellitus without complications Status: Acute Assessment and Plan: Sliding scale insulin and Accu-Cheks (4) Chronic obstructive pulmonary disease: Code(s): J44.9 - Chronic obstructive pulmonary disease, unspecified Status: Acute Assessment and Plan: Continue bronchodilators (5) Chronic wound of extremity: Status: Acute Assessment and Plan: -wound culture -consult wound care team for evaluation and recommendations of wound care -surgery has been consulted -continue antibiotics as above X-rays of bilateral lower extremities did not reveal any osteomyelitis, gas Plan DVT prophylaxis: Lovenox Stress ulcer prophylaxis: Not indicated Nutrition: Diabetic diet Code Status: Full Subjective Date/time seen: 09/10/24 14:55 Interval history: chart reviewed. discussed with nursing staff. no new compalitns. Did not require any IV vasopressors. Wounds in her lower legs. Which has been on ongoing issue. Review of Systems Review of Systems: All systems reviewed & are unremarkable except as noted in HPI and below Exam Narrative: General: Pleasant female in no acute distress, morbidly obese HEENT:? Pupils equal and reactive Neck:? Thick neck Respiratory:? coarse breath sounds and decreased breath sounds at bases, otherwise clear to auscultation Cardiac:? S1-S2 normal, regular rate and rhythm Abdomen:? Morbidly obese, soft, nontender, distended bowel sounds Extremities:? bilateral pedal pulses are positive Neuro:? Patient is awake, alert, oriented, nonfocal, answers to questions appropriately and follows simple commands in all extremities Skin:? Bilateral lower extremity wounds and blisters, macerated scan, no crepitus Psych:? Normal affect, mood and mentation Objective Data Vital Signs Vital Signs: Vital Signs - 24 hr 09/09/24 16:09 09/09/24 16:15 09/09/24 16:16 Temperature 100.2 F H Pulse Rate 130 H 130 H Respiratory Rate 24 H 20 Blood Pressure 114/77 Pulse Oximetry 100 Oxygen Delivery Nasal Cannula Oxygen Flow Rate 4 4 09/09/24 18:01 09/09/24 18:05 09/09/24 18:58 Temperature Pulse Rate 108 H 102 H 98 Respiratory Rate 20 17 22 H Blood Pressure 79/21 L 94/47 L 91/45 L Pulse Oximetry 98 97 97 Oxygen Delivery Oxygen Flow Rate 09/09/24 19:01 09/09/24 19:02 09/09/24 19:10 Temperature Pulse Rate 96 95 Respiratory Rate 19 17 Blood Pressure 83/43 L 86/43 L Pulse Oximetry 97 96 100 Oxygen Delivery Nasal Cannula Oxygen Flow Rate 4 09/09/24 19:31 09/09/24 19:32 09/09/24 20:12 Temperature Pulse Rate 97 96 102 H Respiratory Rate 16 19 22 H Blood Pressure 86/47 L 97/59 L Pulse Oximetry 97 99 99 Oxygen Delivery Oxygen Flow Rate 09/09/24 21:33 09/09/24 22:01 09/09/24 23:02 Temperature Pulse Rate 92 90 88 Respiratory Rate 17 19 16 Blood Pressure 121/61 Pulse Oximetry 100 100 100 Oxygen Delivery Oxygen Flow Rate 09/09/24 23:30 09/10/24 00:11 09/10/24 00:11 Temperature 99.6 F Pulse Rate 86 90 89 Respiratory Rate 16 21 H Blood Pressure 122/66 Pulse Oximetry 100 100 Oxygen Delivery Oxygen Flow Rate 09/10/24 02:00 09/10/24 02:00 09/10/24 02:30 Temperature Pulse Rate 90 90 94 Respiratory Rate 16 15 Blood Pressure 82/41 L 99/52 L Pulse Oximetry 96 95 Oxygen Delivery Oxygen Flow Rate 09/10/24 04:00 09/10/24 04:00 09/10/24 04:00 Temperature 99 F Pulse Rate 95 92 94 Respiratory Rate 18 17 Blood Pressure 101/59 L Pulse Oximetry 94 93 Oxygen Delivery Nasal Cannula Oxygen Flow Rate 4 09/10/24 06:00 09/10/24 06:00 09/10/24 08:00 Temperature 99.2 F Pulse Rate 86 86 74 Respiratory Rate 15 18 Blood Pressure 111/55 L 100/55 L Pulse Oximetry 96 98 Oxygen Delivery Oxygen Flow Rate 09/10/24 08:00 09/10/24 08:05 09/10/24 10:00 Temperature Pulse Rate 80 80 91 Respiratory Rate 15 Blood Pressure Pulse Oximetry 100 Oxygen Delivery Nasal Cannula Oxygen Flow Rate 4 09/10/24 10:00 09/10/24 12:00 09/10/24 12:05 Temperature Pulse Rate 91 90 90 Respiratory Rate 17 25 H Blood Pressure 110/62 Pulse Oximetry 98 100 Oxygen Delivery Nasal Cannula Oxygen Flow Rate 4 09/10/24 12:05 Temperature 99 F Pulse Rate 90 Respiratory Rate 25 H Blood Pressure 106/53 L Pulse Oximetry 100 Oxygen Delivery Oxygen Flow Rate Intake/Output Intake/Output: Intake & Output 09/07/24 09/08/24 09/09/24 09/10/24 23:59 23:59 23:59 23:59 Intake Total 3100 3087.5 Output Total 150 Balance 2950 3087.5 Meds/Results Medications: Active Medications Generic Name Dose Route Start Last Admin Trade Name Freq PRN Reason Stop Dose Admin Acetaminophen 650 mg 09/09/24 22:00 09/10/24 11:56 Acetaminophen 325 Mg Tablet PO 650 mg Q4H PRN Administration Mild Pain (1-3) or Fever Albuterol/Ipratropium 3 ml 09/10/24 11:28 Ipratropium 0.5 Mg/Albuterol Sulfate 2.5 Mg Ampul.Neb 3 Ml INHALATION Q6HRT PRN sob, wheeze Dextrose 12.5 gm 09/10/24 07:43 Dextrose 50% 25 Gm/50 Ml Syringe IV PUSH PRN PRN Hypoglycemia Protocol Enoxaparin Sodium 40 mg 09/11/24 09:00 Enoxaparin 40 Mg/0.4 Ml Syringe SUB-Q DAILY CARIE Glucagon 1 mg 09/10/24 07:43 Glucagon For Inj 1 Mg Vial IM PRN PRN Hypoglycemia Protocol Glucose 15 gm 09/10/24 07:43 Glucose Oral Gel 15 Gm Of Glucse In 37.5 Gm Tube PO PRN PRN Hypoglycemia Protocol Lactated Ringer's 1,000 mls @ 75 mls/hr 09/09/24 22:00 09/10/24 08:12 Lr - Lactated Ringers Iv IV CONT 125 mls/hr .[id number] CARIE Administration Vancomycin HCl 1,500 mg in 500 mls @ 250 mls/hr 09/10/24 16:00 Vancomycin 1,500 Mg/Ns 500 Ml IVPB Q18H CARIE Albumin Human 100 mls @ 60 mls/hr 09/10/24 07:45 09/10/24 11:24 Albutein IVPB 09/11/24 01:39 60 mls/hr Q6HR CARIE Administration Piperacillin/Tazobactam/Dextrose 3.375 gm in 50 mls @ 100 mls/hr 09/10/24 07:45 09/10/24 12:00 Zosyn 3.375 Gm/Ns 50 Ml IVPB 100 mls/hr Q6HR CARIE Administration Dextrose 1,000 mls @ 100 mls/hr 09/10/24 07:43 Dextrose 5% 1,000 Ml IVPB PRN PRN Hypoglycemia Protocol Insulin Aspart 3 - 6 units 09/10/24 12:00 09/10/24 11:20 Insulin Aspart (*Bkc) 100 Units/Ml SUB-Q Not Given Q6HR [facility] Protocol Ondansetron HCl 4 mg 09/09/24 22:00 Ondansetron Inj 4 Mg/2 Ml Vial IV PUSH Q4H PRN Nausea Radiology Results: ITS Impressions Chest X-Ray 09/09/24 16:33 IMPRESSION: 1. Cardiomegaly. Chest/Abdomen/Pelvis CT 09/09/24 18:43 IMPRESSION: 1. Diffuse hepatic steatosis. 2. Mild retroperitoneal and right pelvic lymphadenopathy, likely reactive. Foot X-Ray 09/09/24 20:06 IMPRESSION: 1. No evidence of osteomyelitis. 2. Mild polyarticular osteoarthritis. Tibia/Fibula X-Ray 09/09/24 20:07 IMPRESSION: 1. No evidence of osteomyelitis. 2. Polyarticular osteoarthritis. Labs Labs: Laboratory Results - last 24 hr 09/09/24 09/09/24 09/09/24 16:33 16:33 19:06 WBC 11.5 H RBC 4.75 Hgb 14.2 Hct 44.6 MCV 93.9 MCH 29.9 MCHC 31.8 L RDW 15.3 H Plt Count 172 MPV 10.5 H Immature Gran % (Auto) 0.3 Neut % (Auto) 82.7 H Lymph % (Auto) 10.7 L [place] % (Auto) 5.0 Eos % (Auto) 1.0 Baso % (Auto) 0.3 Lymph # (Auto) 1.23 [place] # (Auto) 0.6 Eos # (Auto) 0.1 Baso # (Auto) 0.0 Abs Immat Gran (auto) 0.04 H Absolute Neuts (auto) 9.5 H Absolute Nucleated RBC 0.000 Nucleated RBC % 0.0 % Immature Plt Fraction Sodium 136 L Potassium 4.4 Chloride 103 Carbon Dioxide 24 Anion Gap 9 BUN 11 Creatinine 1.30 H Estim Creat Clear Calc 73 Estimated GFR 43 L Glucose 206 H POC Capillary Glucose Lactic Acid 4.9 H* Cancelled 2.2 H Calcium 9.0 Phosphorus Magnesium Total Bilirubin 1.0 AST 42 H ALT 34 Alkaline Phosphatase 70 C-Reactive Protein Total Protein 8.0 Albumin 3.8 Urine Color Dark yellow Urine Appearance Cloudy H Urine pH 5.0 Ur Specific [place] 1.024 Urine Protein 2+ H Urine Glucose (UA) 2+ H Urine Ketones 1+ H Ur Blood (Man) Negative Urine Nitrate Negative Urine Bilirubin 1+ H Urine Urobilinogen 1.0 Leukocyte Esterase Rfl Negative Urine RBC 3-5 H Urine WBC 6-10 H Ur Squamous Epith Cells Few Hyaline Casts Present Nasal MRSA (PCR) Influenza A (RT-PCR) Negative Influenza B (RT-PCR) Negative SARS-CoV-2 RNA (RT-PCR) Negative 09/10/24 09/10/24 09/10/24 00:25 00:52 01:21 WBC RBC Hgb Hct MCV MCH MCHC RDW Plt Count MPV Immature Gran % (Auto) Neut % (Auto) Lymph % (Auto) [place] % (Auto) Eos % (Auto) Baso % (Auto) Lymph # (Auto) [place] # (Auto) Eos # (Auto) Baso # (Auto) Abs Immat Gran (auto) Absolute Neuts (auto) Absolute Nucleated RBC Nucleated RBC % % Immature Plt Fraction Sodium Potassium Chloride Carbon Dioxide Anion Gap BUN Creatinine Estim Creat Clear Calc Estimated GFR Glucose POC Capillary Glucose 125 H Lactic Acid 1.7 Calcium Phosphorus Magnesium Total Bilirubin AST ALT Alkaline Phosphatase C-Reactive Protein Total Protein Albumin Urine Color Urine Appearance Urine pH Ur Specific [place] Urine Protein Urine Glucose (UA) Urine Ketones Ur Blood (Man) Urine Nitrate Urine Bilirubin Urine Urobilinogen Leukocyte Esterase Rfl Urine RBC Urine WBC Ur Squamous Epith Cells Hyaline Casts Nasal MRSA (PCR) Not detected Influenza A (RT-PCR) Influenza B (RT-PCR) SARS-CoV-2 RNA (RT-PCR) 09/10/24 09/10/24 09/10/24 04:50 07:53 11:20 WBC 10.0 RBC 4.07 L Hgb 11.9 L Hct 38.1 MCV 93.6 MCH 29.2 MCHC 31.2 L RDW 15.5 H Plt Count 139 L MPV 10.4 Immature Gran % (Auto) 0.3 Neut % (Auto) 63.4 Lymph % (Auto) 25.2 [place] % (Auto) 10.6 H Eos % (Auto) 0.1 Baso % (Auto) 0.4 Lymph # (Auto) 2.51 [place] # (Auto) 1.1 H Eos # (Auto) 0.0 Baso # (Auto) 0.0 Abs Immat Gran (auto) 0.03 Absolute Neuts (auto) 6.3 Absolute Nucleated RBC 0.000 Nucleated RBC % 0.0 % Immature Plt Fraction 4.7 Sodium 136 L Potassium 4.3 Chloride 106 Carbon Dioxide 27 Anion Gap 3 L BUN 14 Creatinine 1.40 H 1.40 H Estim Creat Clear Calc 67 67 Estimated GFR 39 L 39 L Glucose 141 H POC Capillary Glucose 139 H Lactic Acid 0.8 Calcium 7.8 L Phosphorus 4.1 Magnesium 2.0 Total Bilirubin 0.7 AST 31 ALT 25 Alkaline Phosphatase 47 C-Reactive Protein 18.4 H Total Protein 6.0 L Albumin 2.8 L Urine Color Urine Appearance Urine pH Ur Specific [place] Urine Protein Urine Glucose (UA) Urine Ketones Ur Blood (Man) Urine Nitrate Urine Bilirubin Urine Urobilinogen Leukocyte Esterase Rfl Urine RBC Urine WBC Ur Squamous Epith Cells Hyaline Casts Nasal MRSA (PCR) Influenza A (RT-PCR) Influenza B (RT-PCR) SARS-CoV-2 RNA (RT-PCR)
[2024-09-10] MEDS: VANCOMYCIN 1,500 MG/NS 500 ML 1,500 MG/500 ML BAG 250 MG IVPB (15:01)
--- NOTE | 2024-09-10 16:27 | P.CONS_ITS ---
Assessment and Plan Assessment and plan (1) Cellulitis of lower leg: Code(s): L03.119 - Cellulitis of unspecified part of limb Status: Acute Assessment and Plan: imaging study shows no focus of infection in her chest or abdomen. She appears to have bilateral lower extremity cellulitis. Chronic venous stasis changes are noted and she has a very superficial wound on her left lower extremity which is not necrotic. She does have evidence of a ruptured blisters but no evidence of abscess. I think she needs compression after bile or extremities with Rachid wraps. Broad-spectrum IV antibiotic coverage. Medical management of chronic medical conditions contributing to the edema in her lower extremities and medical management of her cellulitis. There is no role for surgical management at this time. Will follow peripherally. HPI Data of Consult Date/Time: 09/10/24 16:27 Requesting Physician: Jose Bragg MD Primary Care Provider: Dalila Kitchen, Consult Narrative Reason for consult: Bilateral lower extremity cellulitis and wounds Narrative: Susan Mo is a 53 year old female admitted from the emergency room to the intensive care unit with sepsis. She was having fevers and chills at home on the URI symptoms. She is super morbidly obese. She has had chronic wound on her lower extremities which have been treated [facility] for several years. She was diagnosed with cellulitis of the bilateral lower extremities started on broad-spectrum IV antibiotics and admitted to the intensive care unit. Today she is a within oriented proved she is no longer on pressors. No fever since admission. [place] blood count [place] [id number] on admission and is 10,000 today. Review of Systems 2 Review of Systems: The remainder of the review of systems to include constitutional, HEENT, cardiovascular, respiratory, GI, , integumentary, musculoskeletal, endocrine, immunologic, hematologic, psychiatric, and neurologic are all negative except for which is mentioned above in the HPI. [facility] Past Medical History Medical History Diabetes type 2, controlled Chronic obstructive pulmonary disease BMI 70 and over, adult Left knee DJD Right knee DJD Kidney stone Sleep apnea HTN (hypertension) Surgical History Surgical History History of partial hysterectomy History of appendectomy Hx of cholecystectomy Hx of tonsillectomy Family History Family History Father Kidney failure Mother Hypertension Mother Diabetes mellitus Social History Social History Smoking packs per day: 1 Smoking cigarettes per day: 20.0 Years smoked: 29 Smoking pack-years: 29.00 Smoking status: Former smoker Tobacco type: cigarettes Smoking end date: 09/29/17 Alcohol intake: current Drinks per week: 1 Substance use: never Substance use type: does not use Do You Feel Safe in your Home?: Yes Lack of Transportation: YES Lack of Food: Never True Current Housing: I Have Housing Concerned About Future Housing: No Difficulty Paying Gas/Electric Bills: No Difficulty Paying for Meds: No Currently Unemployed: No Education: High School Diploma/GED Difficulty w/ Childcare or Family Care: No Living arrangements: with family Gender identity (if verbalized by the patient): Female Spiritual care concerns: No Meds Home Medications and Allergies Home Medications ?Medication ?Instructions ?Recorded ?Confirmed ?Type baclofen 10 mg tablet 10 mg PO Q12H 04/12/24 09/10/24 History bumetanide 1 mg tablet 1 mg PO DAILY 04/12/24 09/10/24 History calcium 500 mg (as 1 tablet PO Q12H 04/12/24 09/10/24 History carbonate)-vitamin D3 5 mcg (200 unit) tablet (Oysco 500/D) lisinopril 10 mg tablet 10 mg PO DAILY 04/12/24 09/10/24 History magnesium oxide 500 mg capsule 500 mg PO Q12H 04/12/24 09/10/24 History metoprolol succinate 100 mg 100 mg PO DAILY 04/12/24 09/10/24 History tablet,extended release 24 hr niacinamide 500 mg tablet 500 mg PO TID 04/12/24 09/10/24 History pioglitazone 30 mg tablet 30 mg PO DAILY 04/12/24 09/10/24 History prednisone 2.5 mg tablet 2.5 mg PO DAILY 04/12/24 09/10/24 History tramadol 200 mg capsule 200 mg PO DAILY PRN Pain 04/12/24 09/10/24 History 24h,extended release(25-75) turmeric root extract 500 mg 500 mg PO DAILY 04/12/24 09/10/24 History capsule zinc acetate 50 mg (zinc) capsule 50 mg PO DAILY 04/12/24 09/10/24 History ondansetron 4 mg disintegrating 4 mg PO Q8H PRN nausea and 04/20/24 09/10/24 Rx tablet vomiting #60 tabs doxycycline hyclate 100 mg tablet 100 mg PO DAILY 07/12/24 09/10/24 History empagliflozin 10 mg tablet 10 mg PO DAILY 07/15/24 09/10/24 History (Jardiance) diclofenac sodium 1 % topical gel 2 g topical QID PRN pain 09/10/24 09/10/24 History fluconazole 100 mg tablet mg 09/10/24 History hydroxyzine HCl 10 mg tablet mg 09/10/24 History magnesium oxide 400 mg (241.3 mg 400 mg PO Q12H 09/10/24 09/10/24 History magnesium) tablet Allergies Allergy/AdvReac Type Severity Reaction Status Date / Time clindamycin Allergy Mild Unknown Verified 07/15/24 13:53 erythromycin base Allergy Mild Nausea and Verified 07/15/24 13:53 Vomiting Sulfa (Sulfonamide Allergy Mild Unknown Verified 07/15/24 13:53 Antibiotics) Vital Signs Vital Signs - 24 hr 09/09/24 18:01 09/09/24 18:05 09/09/24 18:58 Temperature Pulse Rate 108 H 102 H 98 Respiratory Rate 20 17 22 H Blood Pressure 79/21 L 94/47 L 91/45 L Pulse Oximetry 98 97 97 Oxygen Delivery Oxygen Flow Rate 09/09/24 19:01 09/09/24 19:02 09/09/24 19:10 Temperature Pulse Rate 96 95 Respiratory Rate 19 17 Blood Pressure 83/43 L 86/43 L Pulse Oximetry 97 96 100 Oxygen Delivery Nasal Cannula Oxygen Flow Rate 4 09/09/24 19:31 09/09/24 19:32 09/09/24 20:12 Temperature Pulse Rate 97 96 102 H Respiratory Rate 16 19 22 H Blood Pressure 86/47 L 97/59 L Pulse Oximetry 97 99 99 Oxygen Delivery Oxygen Flow Rate 09/09/24 21:33 09/09/24 22:01 09/09/24 23:02 Temperature Pulse Rate 92 90 88 Respiratory Rate 17 19 16 Blood Pressure 121/61 Pulse Oximetry 100 100 100 Oxygen Delivery Oxygen Flow Rate 09/09/24 23:30 09/10/24 00:11 09/10/24 00:11 Temperature 37.6 C Pulse Rate 86 90 89 Respiratory Rate 16 21 H Blood Pressure 122/66 Pulse Oximetry 100 100 Oxygen Delivery Oxygen Flow Rate 09/10/24 02:00 09/10/24 02:00 09/10/24 02:30 Temperature Pulse Rate 90 90 94 Respiratory Rate 16 15 Blood Pressure 82/41 L 99/52 L Pulse Oximetry 96 95 Oxygen Delivery Oxygen Flow Rate 09/10/24 04:00 09/10/24 04:00 09/10/24 04:00 Temperature 37.2 C Pulse Rate 95 92 94 Respiratory Rate 18 17 Blood Pressure 101/59 L Pulse Oximetry 94 93 Oxygen Delivery Nasal Cannula Oxygen Flow Rate 4 09/10/24 06:00 09/10/24 06:00 09/10/24 08:00 Temperature 37.3 C Pulse Rate 86 86 74 Respiratory Rate 15 18 Blood Pressure 111/55 L 100/55 L Pulse Oximetry 96 98 Oxygen Delivery Oxygen Flow Rate 09/10/24 08:00 09/10/24 08:05 09/10/24 10:00 Temperature Pulse Rate 80 80 91 Respiratory Rate 15 Blood Pressure Pulse Oximetry 100 Oxygen Delivery Nasal Cannula Oxygen Flow Rate 4 09/10/24 10:00 09/10/24 12:00 09/10/24 12:05 Temperature Pulse Rate 91 90 90 Respiratory Rate 17 25 H Blood Pressure 110/62 Pulse Oximetry 98 100 Oxygen Delivery Nasal Cannula Oxygen Flow Rate 4 09/10/24 12:05 Temperature 37.2 C Pulse Rate 90 Respiratory Rate 25 H Blood Pressure 106/53 L Pulse Oximetry 100 Oxygen Delivery Oxygen Flow Rate Exam 2 Const: General: comfortable and no acute distress HENMT: Ears: TM's normal bilaterally Face/Nose/Sinus: Normal nares present Mouth: Yes moist mucous membranes Eyes: General: appearance normal, both eyes and all related structures S clera: sclerae normal Pupils: Equal, round and reactive pupils present E OM: EOMs intact bilaterally Neck: Neck: supple and no JVD Resp: Effort & Inspection: normal respiratory effort Auscultation: clear to auscultation bilaterally Cardio: Rate: regular rate Rhythm: regular rhythm GI: Other: Abdomen is morbidly obese but soft. No tenderness or guarding. Abdominal exam is benign. Skin: Other: The bilateral lower extremities have chronic changes of venous stasis changes. On the left lower extremity there was a small 1 to 2 cm superficial wound with breakdown of the skin but no necrotic tissue. There are some ruptured blisters on the posterior aspect of the bilateral calves. Erythema and warmth is noted around both lower extremities from the calves. No fluctuance or abscess is noted. Both lower extremities are warm to touch and she is able to move all of her toes. Neuro: Speech: normal speech Sensory Exam: normal sensation Extrem: Other: Chronic venous stasis changes to bilateral extremities. Cellulitis is noted with erythema and warmth of the skin. No necrotic tissue or abscess is noted. Psych: Mental Status: mental status grossly normal Affect: normal affect Results Labs 09/10/24 07:53 09/10/24 07:53 Labs: Short CBC 09/09/24 09/10/24 Range/Units 16:33 07:53 WBC 11.5 H 10.0 (4.5-10.0) K/mm3 Hgb 14.2 11.9 L (12.0-15.0) g/dL Hct 44.6 38.1 (37.0-47.0) % Plt Count 172 139 L (150-375) k/mm3 BMP 09/09/24 09/10/24 09/10/24 16:33 04:50 07:53 Sodium 136 L 136 L Potassium 4.4 4.3 Chloride 103 106 Carbon Dioxide 24 27 BUN 11 14 Creatinine 1.30 H 1.40 H 1.40 H Glucose 206 H 141 H Calcium 9.0 7.8 L Liver Function 09/09/24 09/10/24 Range/Units 16:33 07:53 Total Bilirubin 1.0 0.7 (0.2-1.3) mg/dL AST 42 H 31 (14-36) U/L ALT 34 25 (6-35) U/L Alkaline Phosphatase 70 47 (38-126) U/L Albumin 3.8 2.8 L (3.5-5.1) g/dL Urine 09/09/24 Range/Units 19:06 Urine Color Dark yellow (Yellow) Urine Appearance Cloudy H (Clear) Urine pH 5.0 (5.0-9.0) Ur Specific Sunshine 1.024 (1.001-1.035) Urine Protein 2+ H (Negative) mg/dL Urine Glucose (UA) 2+ H (Negative) mg/dL
[2024-09-10] MEDS: INSULIN ASPART (*BKC) 100 UNITS/ML SUB-Q (17:24)
[2024-09-10 17:25] LABS: Glucose Point of Care 245 mg/dl (65-105)
[2024-09-10] MEDS: ONDANSETRON INJ 4 MG/2 ML VIAL IV PUSH (20:10)
[2024-09-10] MEDS: IPRATROPIUM 0.5 MG/ALBUTEROL SULFATE 2.5 MG AMPUL.NEB 3 ML INHALATION (20:47)
[2024-09-11] VITALS (22 sets, daily range): BP systolic 111–150; BP diastolic 52–79; PULSE 58–104; RESP 15–22; TEMP 36.4–36.8; O2SAT 90–96
[2024-09-11] MEDS: ALBUMIN HUMAN 25% 25 GM/100 ML 100 ML IVPB (01:11)
[2024-09-11] MEDS: PIPERACILLN/TAZ 3.375GM/NS50ML 3.375 GM/50 ML BAG IVPB ×5 (01:30→23:19)
[2024-09-11 02:54] LABS: Glucose Point of Care 168 mg/dl (65-105)
[2024-09-11 04:15] LABS: Basophils Percent Auto 0.4 % (0.2-1.2); Eosinophils Absolute Auto 0.1 K/mm3 (0-0.3); Eosinophils Percent Auto 1.9 % (0-4.4); Hematocrit 34.4 % (37.0-47.0); Hemoglobin 11.1 g/dL (12.0-15.0); Immature Granulocyte Absolute 0.02 K/mm3 (0.00-0.031); Immature Granulocyte Percent A 0.3 % (0-0.5); Lymphocytes Absolute Auto 1.96 K/mm3 (0.9-3.2); Mean Corpuscular HGB Conc 32.3 g/dl (32-36); Mean Platelet Volume 10.4 fl (7.4-10.4); Monocytes Absolute Auto 0.7 K/mm3 (0.1-0.6); Monocytes Percent Auto 9.1 % (2.6-8.5); Neutrophils Absolute Auto 4.7 K/mm3 (1.3-6.7); Neutrophils Percent Auto 62.3 % (45.5-73.1); Platelet Count Result 120 k/mm3 (150-375); Red Cell Distribution Width 15.1 % (11.5-14.5); White Blood Count 7.6 K/mm3 (4.5-10.0)
[2024-09-11 04:37] LABS: Alanine Aminotransferase 22 U/L (6-35); Albumin Level 3.4 g/dL (3.5-5.1); Alkaline Phosphatase 47 U/L (38-126); Anion Gap 4 mmol/L (4-12); Aspartate Amino Transferase 25 U/L (14-36); Bilirubin,Total 0.7 mg/dL (0.2-1.3); Blood Urea Nitrogen 12 mg/dL (7-17); Calcium 8.2 mg/dL (8.4-10.2); Carbon Dioxide 25 mmol/L (22-30); Chloride 110 mmol/L (98-107); Estimated CRCL calculation 84 ml/min; Estimated Glomerular Filt Rate 52; Glucose 176 mg/dL (65-110); Magnesium 2.2 mg/dL (1.6-2.3); Phosphorus 3.2 mg/dL (2.5-4.5); Potassium 4.2 mmol/L (3.4-5.0); Sodium 139 mmol/L (137-145)
[2024-09-11] MEDS: ACETAMINOPHEN 325 MG TABLET 650 MG PO (06:11)
[2024-09-11] MEDS: ENOXAPARIN 40 MG/0.4 ML SYRINGE SUB-Q (08:50)
--- NOTE | 2024-09-11 10:39 | P.PNINT_ITS ---
Progress Note: A&P Assessment and Plan (1) Severe sepsis: Code(s): A41.9 - Sepsis, unspecified organism; R65.20 - Severe sepsis without septic shock Status: Acute Assessment and Plan: Patient with severe sepsis, likely etiology is wounds, CTA chest abdomen pelvis did not reveal any source of infection. Bilateral lower extremity x-rays did not show any osteomyelitis -patient received a total of 4 L of IV fluids between ER in ICU -blood pressures remain stable a G-tube placed central line and start vasopressors -will give some albumin for volume expansion if needed -lactic acid is normal -discontinue maintenance IV fluid -urine output has been adequate function improved to baseline. -blood pressures have been stable -09/09: Preliminary Blood cultures are negative so far -09/10: Wound culture has been ordered -continue empiric vancomycin and Zosyn (09/09), will deescalate once cultures are resulted (2) Sleep apnea: Code(s): G47.30 - Sleep apnea, unspecified Status: Acute Assessment and Plan: CPAP/BiPAP at night or when asleep (3) Diabetes type 2, controlled: Code(s): E11.9 - Type 2 diabetes mellitus without complications Status: Acute Assessment and Plan: Sliding scale insulin and Accu-Cheks (4) Chronic obstructive pulmonary disease: Code(s): J44.9 - Chronic obstructive pulmonary disease, unspecified Status: Acute Assessment and Plan: Continue bronchodilators (5) Chronic wound of extremity: Status: Acute Assessment and Plan: -wound culture has been obtained -appreciate wound care evaluation and recommendations -appreciate surgery evaluation, no indication for surgical management at this time -continue antibiotics as above X-rays of bilateral lower extremities did not reveal any osteomyelitis, gas Plan DVT prophylaxis: Lovenox Stress ulcer prophylaxis: Not indicated Nutrition: Diabetic diet Code Status: Full Critical Care Time Spent: 31 minutes Patient may transfer out of the ICU if okay with hospitalist Due to a high probability of clinically significant, life threatening deterioration, the patient required my highest level of preparedness to intervene emergently and I personally spent this critical care time directly and personally managing the patient. This critical care time included obtaining a history; examining the patient; pulse oximetry; ordering and review of studies; arranging urgent treatment with development of a management plan; evaluation of patient's response to treatment; frequent reassessment; and discussions with other providers. It was exclusive of separately billable procedures and treating other patients and teaching time. Please see Assessment and Plan section and the rest of the note for further information on patient assessment and treatment This dictation may have been done utilizing a voice recognition system. Attempts have been made to correct errors. However, there may be uncorrected grammatical, spelling, and recognitions errors present. Subjective Date/time seen: 09/11/24 10:39 Interval history: Reason for consult: Nausea, vomiting, fevers, chills, shortness of breath, URI symptoms, severe sepsis 09/11/2024: Patient seen and examined the ICU, pleasant female in no acute distress, states he feels better this morning. Blood pressures have been stable not requiring any pressors. Currently on maintenance IV fluids have asked the bedside RN to discontinue as her oral intake has been adequate/could. Urine output has been adequate, afebrile. Denies any chest pain, shortness of breath, abdominal pain, nausea, vomiting Review of Systems Review of Systems: All systems reviewed & are unremarkable except as noted in HPI and below Exam Narrative: General: Pleasant female in no acute distress, morbidly obese HEENT:? Pupils equal and reactive Neck:? Thick neck Respiratory:? coarse breath sounds and decreased breath sounds at bases, otherwise clear to auscultation Cardiac:? S1-S2 normal, regular rate and rhythm Abdomen:? Morbidly obese, soft, nontender, distended bowel sounds Extremities:? bilateral pedal pulses are positive Neuro:? Patient is awake, alert, oriented, nonfocal, answers to questions appropriately and follows simple commands in all extremities Skin:? Bilateral lower extremity wounds and blisters, macerated scan, no crepitus Psych:? Normal affect, mood and mentation Objective Data Vital Signs Vital Signs: Vital Signs - 24 hr 09/10/24 12:00 09/10/24 12:05 09/10/24 12:05 Temperature 99 F Pulse Rate 90 90 90 Respiratory Rate 25 H 25 H Blood Pressure 106/53 L Pulse Oximetry 100 100 Oxygen Delivery Nasal Cannula Oxygen Flow Rate 4 09/10/24 14:00 09/10/24 14:00 09/10/24 16:00 Temperature 98.7 F Pulse Rate 79 79 74 Respiratory Rate 17 19 Blood Pressure 104/64 119/64 Pulse Oximetry 100 97 Oxygen Delivery Oxygen Flow Rate 09/10/24 16:00 09/10/24 16:05 09/10/24 18:00 Temperature Pulse Rate 72 72 83 Respiratory Rate 17 Blood Pressure Pulse Oximetry 97 Oxygen Delivery Nasal Cannula Oxygen Flow Rate 4 09/10/24 18:00 09/10/24 20:00 09/10/24 20:00 Temperature 98.9 F Pulse Rate 83 77 75 Respiratory Rate 17 17 Blood Pressure 127/66 Pulse Oximetry 99 99 Oxygen Delivery Nasal Cannula Oxygen Flow Rate 4 09/10/24 20:00 09/10/24 20:50 09/10/24 20:51 Temperature 98.8 F Pulse Rate 75 78 78 Respiratory Rate 15 17 Blood Pressure 147/77 H Pulse Oximetry 100 99 Oxygen Delivery Nasal Cannula Oxygen Flow Rate 4 09/10/24 20:56 09/10/24 22:00 09/10/24 22:00 Temperature Pulse Rate 77 80 80 Respiratory Rate 17 Blood Pressure Pulse Oximetry 95 Oxygen Delivery CPAP Oxygen Flow Rate 09/10/24 22:00 09/11/24 00:00 09/11/24 00:00 Temperature Pulse Rate 87 80 87 Respiratory Rate 18 17 Blood Pressure 150/87 H Pulse Oximetry 98 95 Oxygen Delivery CPAP Oxygen Flow Rate 09/11/24 00:00 09/11/24 02:00 09/11/24 02:00 Temperature 98 F Pulse Rate 87 87 87 Respiratory Rate 16 17 Blood Pressure 150/76 H 140/75 Pulse Oximetry 93 90 Oxygen Delivery Oxygen Flow Rate 09/11/24 02:30 09/11/24 04:00 09/11/24 04:00 Temperature Pulse Rate 81 81 104 H Respiratory Rate 17 Blood Pressure Pulse Oximetry 96 96 Oxygen Delivery CPAP CPAP Oxygen Flow Rate 09/11/24 04:00 09/11/24 06:00 09/11/24 06:00 Temperature 98.3 F Pulse Rate 91 92 93 Respiratory Rate 16 15 Blood Pressure 135/71 129/65 Pulse Oximetry 94 93 Oxygen Delivery Oxygen Flow Rate 09/11/24 07:34 09/11/24 07:47 09/11/24 08:00 Temperature Pulse Rate 99 Respiratory Rate 22 H Blood Pressure Pulse Oximetry 94 91 90 Oxygen Delivery Nasal Cannula Nasal Cannula Oxygen Flow Rate 3 3 09/11/24 08:04 09/11/24 08:31 09/11/24 08:32 Temperature 98.3 F Pulse Rate 90 84 85 Respiratory Rate 16 15 16 Blood Pressure 144/74 H Pulse Oximetry 92 91 90 Oxygen Delivery Oxygen Flow Rate 09/11/24 09:00 09/11/24 09:01 09/11/24 09:30 Temperature Pulse Rate 88 83 83 Respiratory Rate 15 15 17 Blood Pressure 111/52 L 118/59 L Pulse Oximetry 92 95 92 Oxygen Delivery Oxygen Flow Rate 09/11/24 10:00 09/11/24 10:01 Temperature Pulse Rate 84 82 Respiratory Rate 18 18 Blood Pressure 149/78 H Pulse Oximetry 92 91 Oxygen Delivery Oxygen Flow Rate Intake/Output Intake/Output: Intake & Output 09/08/24 09/09/24 09/10/24 09/11/24 23:59 23:59 23:59 23:59 Intake Total 3100 4317.5 1600 Output Total 056 421 8393 Balance 2950 3967.5 -600 Meds/Results Medications: Active Medications Generic Name Dose Route Start Last Admin Trade Name Freq PRN Reason Stop Dose Admin Acetaminophen 650 mg 09/09/24 22:00 09/11/24 06:11 Acetaminophen 325 Mg Tablet PO 650 mg Q4H PRN Administration Mild Pain (1-3) or Fever Albuterol/Ipratropium 3 ml 09/10/24 11:28 09/10/24 20:47 Ipratropium 0.5 Mg/Albuterol Sulfate 2.5 Mg Ampul.Neb 3 Ml INHALATION 3 ml Q6HRT PRN Administration sob, wheeze Dextrose 12.5 gm 09/10/24 07:43 Dextrose 50% 25 Gm/50 Ml Syringe IV PUSH PRN PRN Hypoglycemia Protocol Enoxaparin Sodium 40 mg 09/11/24 09:00 09/11/24 08:50 Enoxaparin 40 Mg/0.4 Ml Syringe SUB-Q 40 mg DAILY CARIE Administration Glucagon 1 mg 09/10/24 07:43 Glucagon For Inj 1 Mg Vial IM PRN PRN Hypoglycemia Protocol Glucose 15 gm 09/10/24 07:43 Glucose Oral Gel 15 Gm Of Glucse In 37.5 Gm Tube PO PRN PRN Hypoglycemia Protocol Vancomycin HCl 1,500 mg in 500 mls @ 250 mls/hr 09/10/24 16:00 09/11/24 07:00 Vancomycin 1,500 Mg/Ns 500 Ml IVPB Infused Q18H CARIE Infusion Piperacillin/Tazobactam/Dextrose 3.375 gm in 50 mls @ 100 mls/hr 09/10/24 07:45 09/11/24 07:00 Zosyn 3.375 Gm/Ns 50 Ml IVPB Infused Q6HR CARIE Infusion Dextrose 1,000 mls @ 100 mls/hr 09/10/24 07:43 Dextrose 5% 1,000 Ml IVPB PRN PRN Hypoglycemia Protocol Insulin Aspart 3 - 6 units 09/10/24 12:00 09/11/24 06:12 Insulin Aspart (*Bkc) 100 Units/Ml SUB-Q Not Given Q6HR [facility] Protocol Ondansetron HCl 4 mg 09/09/24 22:00 09/10/24 20:10 Ondansetron Inj 4 Mg/2 Ml Vial IV PUSH 4 mg Q4H PRN Administration Nausea Radiology Results: ITS Impressions Chest X-Ray 09/09/24 16:33 IMPRESSION: 1. Cardiomegaly. Chest/Abdomen/Pelvis CT 09/09/24 18:43 IMPRESSION: 1. Diffuse hepatic steatosis. 2. Mild retroperitoneal and right pelvic lymphadenopathy, likely reactive. Foot X-Ray 09/09/24 20:06 IMPRESSION: 1. No evidence of osteomyelitis. 2. Mild polyarticular osteoarthritis. Tibia/Fibula X-Ray 09/09/24 20:07 IMPRESSION: 1. No evidence of osteomyelitis. 2. Polyarticular osteoarthritis. Labs Labs: Laboratory Results - last 24 hr 09/10/24 09/10/24 09/11/24 11:20 17:23 02:51 WBC RBC Hgb Hct MCV MCH MCHC RDW Plt Count MPV Immature Gran % (Auto) Neut % (Auto) Lymph % (Auto) [place] % (Auto) Eos % (Auto) Baso % (Auto) Lymph # (Auto) [place] # (Auto) Eos # (Auto) Baso # (Auto) Abs Immat Gran (auto) Absolute Neuts (auto) Absolute Nucleated RBC Nucleated RBC % Sodium Potassium Chloride Carbon Dioxide Anion Gap BUN Creatinine Estim Creat Clear Calc Estimated GFR Glucose POC Capillary Glucose 139 H 245 H 168 H Lactic Acid Calcium Phosphorus Magnesium Total Bilirubin AST ALT Alkaline Phosphatase Total Protein Albumin 09/11/24 03:59 WBC 7.6 RBC 3.70 L Hgb 11.1 L Hct 34.4 L MCV 93.0 MCH 30.0 MCHC 32.3 RDW 15.1 H Plt Count 120 L MPV 10.4 Immature Gran % (Auto) 0.3 Neut % (Auto) 62.3 Lymph % (Auto) 26.0 [place] % (Auto) 9.1 H Eos % (Auto) 1.9 Baso % (Auto) 0.4 Lymph # (Auto) 1.96 [place] # (Auto) 0.7 H Eos # (Auto) 0.1 Baso # (Auto) 0.0 Abs Immat Gran (auto) 0.02 Absolute Neuts (auto) 4.7 Absolute Nucleated RBC 0.000 Nucleated RBC % 0.0 Sodium 139 Potassium 4.2 Chloride 110 H Carbon Dioxide 25 Anion Gap 4 BUN 12 Creatinine 1.10 H Estim Creat Clear Calc 84 Estimated GFR 52 L Glucose 176 H POC Capillary Glucose Lactic Acid 1.0 Calcium 8.2 L Phosphorus 3.2 Magnesium 2.2 Total Bilirubin 0.7 AST 25 ALT 22 Alkaline Phosphatase 47 Total Protein 6.0 L Albumin 3.4 L
[2024-09-11] MEDS: ONDANSETRON INJ 4 MG/2 ML VIAL IV PUSH ×2 (10:54→18:28)
[2024-09-11] MEDS: VANCOMYCIN 1,500 MG/NS 500 ML 1,500 MG/500 ML BAG 250 MG IVPB (10:54)
[2024-09-11 11:40] LABS: Glucose Point of Care 161 mg/dl (65-105)
--- NOTE | 2024-09-11 13:03 | PC.NURSE ---
This patient, Susan Mo, was transferred to [facility] on 09/11/24 at 1303. Personal belongings sent with patient. Report given to Nevaeh PELAYO. Appropriate documentation sent with patient. Patient stated she would tell her family of room change.
--- NOTE | 2024-09-11 13:35 | PM.IMPN ---
Progress Note: A&P Assessment and Plan (1) Severe sepsis: Code(s): A41.9 - Sepsis, unspecified organism; R65.20 - Severe sepsis without septic shock Status: Acute Assessment and Plan: Patient with severe sepsis, likely etiology is wounds, CTA chest abdomen pelvis did not reveal any source of infection. Bilateral lower extremity x-rays did not show any osteomyelitis -patient received a total of 4 L of IV fluids between ER in ICU on empiric vancomycin and zosyn. wound culture and blood culture. Which remains negative to date (2) Sleep apnea: Code(s): G47.30 - Sleep apnea, unspecified Status: Acute Assessment and Plan: CPAP/BiPAP at night or when asleep (3) Diabetes type 2, controlled: Code(s): E11.9 - Type 2 diabetes mellitus without complications Status: Acute Assessment and Plan: Sliding scale insulin and Accu-Cheks (4) Chronic obstructive pulmonary disease: Code(s): J44.9 - Chronic obstructive pulmonary disease, unspecified Status: Acute Assessment and Plan: Continue bronchodilators (5) Chronic wound of extremity: Status: Acute Assessment and Plan: -wound culture -consult wound care team for evaluation and recommendations of wound care -surgery has been consulted -continue antibiotics as above X-rays of bilateral lower extremities did not reveal any osteomyelitis, gas Plan DVT prophylaxis: Lovenox Stress ulcer prophylaxis: Not indicated Nutrition: Diabetic diet Code Status: Full Subjective Date/time seen: 09/11/24 13:35 Interval history: No overnight events. Blood pressure stable. Denies chest pain or shortness of breath. Review of Systems Review of Systems: All systems reviewed & are unremarkable except as noted in HPI and below Exam Narrative: General: Pleasant female in no acute distress, morbidly obese HEENT:? Pupils equal and reactive Neck:? Thick neck Respiratory:? coarse breath sounds and decreased breath sounds at bases, otherwise clear to auscultation Cardiac:? S1-S2 normal, regular rate and rhythm Abdomen:? Morbidly obese, soft, nontender, distended bowel sounds Extremities:? bilateral pedal pulses are positive Neuro:? Patient is awake, alert, oriented, nonfocal, answers to questions appropriately and follows simple commands in all extremities Skin:? Bilateral lower extremity wounds and blisters, macerated scan, no crepitus Psych:? Normal affect, mood and mentation Objective Data Vital Signs Vital Signs: Vital Signs - 24 hr 09/10/24 14:00 09/10/24 14:00 09/10/24 16:00 Temperature 98.7 F Pulse Rate 79 79 74 Respiratory Rate 17 19 Blood Pressure 104/64 119/64 Pulse Oximetry 100 97 Oxygen Delivery Oxygen Flow Rate 09/10/24 16:00 09/10/24 16:05 09/10/24 18:00 Temperature Pulse Rate 72 72 83 Respiratory Rate 17 Blood Pressure Pulse Oximetry 97 Oxygen Delivery Nasal Cannula Oxygen Flow Rate 4 09/10/24 18:00 09/10/24 20:00 09/10/24 20:00 Temperature 98.9 F Pulse Rate 83 77 75 Respiratory Rate 17 17 Blood Pressure 127/66 Pulse Oximetry 99 99 Oxygen Delivery Nasal Cannula Oxygen Flow Rate 4 09/10/24 20:00 09/10/24 20:50 09/10/24 20:51 Temperature 98.8 F Pulse Rate 75 78 78 Respiratory Rate 15 17 Blood Pressure 147/77 H Pulse Oximetry 100 99 Oxygen Delivery Nasal Cannula Oxygen Flow Rate 4 09/10/24 20:56 09/10/24 22:00 09/10/24 22:00 Temperature Pulse Rate 77 80 80 Respiratory Rate 17 Blood Pressure Pulse Oximetry 95 Oxygen Delivery CPAP Oxygen Flow Rate 09/10/24 22:00 09/11/24 00:00 09/11/24 00:00 Temperature Pulse Rate 87 80 87 Respiratory Rate 18 17 Blood Pressure 150/87 H Pulse Oximetry 98 95 Oxygen Delivery CPAP Oxygen Flow Rate 09/11/24 00:00 09/11/24 02:00 09/11/24 02:00 Temperature 98 F Pulse Rate 87 87 87 Respiratory Rate 16 17 Blood Pressure 150/76 H 140/75 Pulse Oximetry 93 90 Oxygen Delivery Oxygen Flow Rate 09/11/24 02:30 09/11/24 04:00 09/11/24 04:00 Temperature Pulse Rate 81 81 104 H Respiratory Rate 17 Blood Pressure Pulse Oximetry 96 96 Oxygen Delivery CPAP CPAP Oxygen Flow Rate 09/11/24 04:00 09/11/24 06:00 09/11/24 06:00 Temperature 98.3 F Pulse Rate 91 92 93 Respiratory Rate 16 15 Blood Pressure 135/71 129/65 Pulse Oximetry 94 93 Oxygen Delivery Oxygen Flow Rate 09/11/24 07:34 09/11/24 07:47 09/11/24 08:00 Temperature Pulse Rate 99 Respiratory Rate 22 H Blood Pressure Pulse Oximetry 94 91 90 Oxygen Delivery Nasal Cannula Nasal Cannula Oxygen Flow Rate 3 3 09/11/24 08:00 09/11/24 08:04 09/11/24 08:31 Temperature 98.3 F Pulse Rate 89 90 84 Respiratory Rate 16 15 Blood Pressure 144/74 H Pulse Oximetry 92 91 Oxygen Delivery Oxygen Flow Rate 09/11/24 08:32 09/11/24 09:00 09/11/24 09:01 Temperature Pulse Rate 85 88 83 Respiratory Rate 16 15 15 Blood Pressure 111/52 L Pulse Oximetry 90 92 95 Oxygen Delivery Oxygen Flow Rate 09/11/24 09:30 09/11/24 10:00 09/11/24 10:00 Temperature Pulse Rate 83 84 84 Respiratory Rate 17 18 Blood Pressure 118/59 L Pulse Oximetry 92 92 Oxygen Delivery Oxygen Flow Rate 09/11/24 10:01 09/11/24 11:36 Temperature 98.1 F Pulse Rate 82 80 Respiratory Rate 18 18 Blood Pressure 149/78 H 137/67 Pulse Oximetry 91 92 Oxygen Delivery Oxygen Flow Rate Intake/Output Intake/Output: Intake & Output 09/08/24 09/09/24 09/10/24 09/11/24 23:59 23:59 23:59 23:59 Intake Total 3100 4317.5 1840 Output Total 319 446 9574 Balance 2950 3967.5 -360 Meds/Results Medications: Active Medications Generic Name Dose Route Start Last Admin Trade Name Freq PRN Reason Stop Dose Admin Acetaminophen 650 mg 09/09/24 22:00 09/11/24 06:11 Acetaminophen 325 Mg Tablet PO 650 mg Q4H PRN Administration Mild Pain (1-3) or Fever Albuterol/Ipratropium 3 ml 09/10/24 11:28 09/10/24 20:47 Ipratropium 0.5 Mg/Albuterol Sulfate 2.5 Mg Ampul.Neb 3 Ml INHALATION 3 ml Q6HRT PRN Administration sob, wheeze Dextrose 12.5 gm 09/10/24 07:43 Dextrose 50% 25 Gm/50 Ml Syringe IV PUSH PRN PRN Hypoglycemia Protocol Enoxaparin Sodium 40 mg 09/11/24 09:00 09/11/24 08:50 Enoxaparin 40 Mg/0.4 Ml Syringe SUB-Q 40 mg DAILY CARIE Administration Glucagon 1 mg 09/10/24 07:43 Glucagon For Inj 1 Mg Vial IM PRN PRN Hypoglycemia Protocol Glucose 15 gm 09/10/24 07:43 Glucose Oral Gel 15 Gm Of Glucse In 37.5 Gm Tube PO PRN PRN Hypoglycemia Protocol Vancomycin HCl 1,500 mg in 500 mls @ 250 mls/hr 09/10/24 16:00 09/11/24 10:54 Vancomycin 1,500 Mg/Ns 500 Ml IVPB 250 mls/hr Q18H CARIE Administration Piperacillin/Tazobactam/Dextrose 3.375 gm in 50 mls @ 100 mls/hr 09/10/24 07:45 09/11/24 07:00 Zosyn 3.375 Gm/Ns 50 Ml IVPB Infused Q6HR CARIE Infusion Dextrose 1,000 mls @ 100 mls/hr 09/10/24 07:43 Dextrose 5% 1,000 Ml IVPB PRN PRN Hypoglycemia Protocol Insulin Aspart 3 - 6 units 09/10/24 12:00 09/11/24 11:45 Insulin Aspart (*Bkc) 100 Units/Ml SUB-Q Not Given Q6HR [facility] Protocol Ondansetron HCl 4 mg 09/09/24 22:00 09/11/24 10:54 Ondansetron Inj 4 Mg/2 Ml Vial IV PUSH 4 mg Q4H PRN Administration Nausea Radiology Results: ITS Impressions Chest X-Ray 09/09/24 16:33 IMPRESSION: 1. Cardiomegaly. Chest/Abdomen/Pelvis CT 09/09/24 18:43 IMPRESSION: 1. Diffuse hepatic steatosis. 2. Mild retroperitoneal and right pelvic lymphadenopathy, likely reactive. Foot X-Ray 09/09/24 20:06 IMPRESSION: 1. No evidence of osteomyelitis. 2. Mild polyarticular osteoarthritis. Tibia/Fibula X-Ray 09/09/24 20:07 IMPRESSION: 1. No evidence of osteomyelitis. 2. Polyarticular osteoarthritis. Labs Labs: Laboratory Results - last 24 hr 09/10/24 09/11/24 09/11/24 17:23 02:51 03:59 WBC 7.6 RBC 3.70 L Hgb 11.1 L Hct 34.4 L MCV 93.0 MCH 30.0 MCHC 32.3 RDW 15.1 H Plt Count 120 L MPV 10.4 Immature Gran % (Auto) 0.3 Neut % (Auto) 62.3 Lymph % (Auto) 26.0 [place] % (Auto) 9.1 H Eos % (Auto) 1.9 Baso % (Auto) 0.4 Lymph # (Auto) 1.96 [place] # (Auto) 0.7 H Eos # (Auto) 0.1 Baso # (Auto) 0.0 Abs Immat Gran (auto) 0.02 Absolute Neuts (auto) 4.7 Absolute Nucleated RBC 0.000 Nucleated RBC % 0.0 Sodium 139 Potassium 4.2 Chloride 110 H Carbon Dioxide 25 Anion Gap 4 BUN 12 Creatinine 1.10 H Estim Creat Clear Calc 84 Estimated GFR 52 L Glucose 176 H POC Capillary Glucose 245 H 168 H Lactic Acid 1.0 Calcium 8.2 L Phosphorus 3.2 Magnesium 2.2 Total Bilirubin 0.7 AST 25 ALT 22 Alkaline Phosphatase 47 Total Protein 6.0 L Albumin 3.4 L 09/11/24 11:37 WBC RBC Hgb Hct MCV MCH MCHC RDW Plt Count MPV Immature Gran % (Auto) Neut % (Auto) Lymph % (Auto) [place] % (Auto) Eos % (Auto) Baso % (Auto) Lymph # (Auto) [place] # (Auto) Eos # (Auto) Baso # (Auto) Abs Immat Gran (auto) Absolute Neuts (auto) Absolute Nucleated RBC Nucleated RBC % Sodium Potassium Chloride Carbon Dioxide Anion Gap BUN Creatinine Estim Creat Clear Calc Estimated GFR Glucose POC Capillary Glucose 161 H Lactic Acid Calcium Phosphorus Magnesium Total Bilirubin AST ALT Alkaline Phosphatase Total Protein Albumin
[2024-09-11 16:45] LABS: Glucose Point of Care 154 mg/dl (65-105)
[2024-09-11] MEDS: IPRATROPIUM 0.5 MG/ALBUTEROL SULFATE 2.5 MG AMPUL.NEB 3 ML INHALATION (17:55)
[2024-09-11 20:37] LABS: Glucose Point of Care 132 mg/dl (65-105)
[2024-09-11] MEDS: diphenhydrAMINE HCl CAP 25 MG CAPSULE PO (21:00)
[2024-09-12] VITALS (7 sets, daily range): BP systolic 114–156; BP diastolic 71–78; PULSE 84–98; RESP 18–20; TEMP 36.2–36.7; O2SAT 92–96
[2024-09-12] MEDS: ACETAMINOPHEN 325 MG TABLET 650 MG PO (02:36)
[2024-09-12] MEDS: diphenhydrAMINE HCl CAP 25 MG CAPSULE PO ×2 (02:36→20:21)
[2024-09-12 03:58] LABS: Basophils Percent Auto 0.6 % (0.2-1.2); Eosinophils Absolute Auto 0.1 K/mm3 (0-0.3); Eosinophils Percent Auto 1.8 % (0-4.4); Hematocrit 36.4 % (37.0-47.0); Hemoglobin 11.8 g/dL (12.0-15.0); Immature Granulocyte Absolute 0.01 K/mm3 (0.00-0.031); Immature Granulocyte Percent A 0.2 % (0-0.5); Lymphocytes Absolute Auto 2.34 K/mm3 (0.9-3.2); Lymphocytes Percent Auto 35.6 % (18.3-44.2); Mean Corpuscular HGB Conc 32.4 g/dl (32-36); Mean Corpuscular Hemoglobin 30.3 pg (26-34); Mean Corpuscular Volume 93.3 fl (80-100); Mean Platelet Volume 10.4 fl (7.4-10.4); Monocytes Absolute Auto 0.7 K/mm3 (0.1-0.6); Monocytes Percent Auto 10.7 % (2.6-8.5); Neutrophils Absolute Auto 3.4 K/mm3 (1.3-6.7); Neutrophils Percent Auto 51.1 % (45.5-73.1); Platelet Count Result 141 k/mm3 (150-375); Red Cell Distribution Width 15.2 % (11.5-14.5); White Blood Count 6.6 K/mm3 (4.5-10.0)
[2024-09-12 04:12] LABS: Alanine Aminotransferase 19 U/L (6-35); Albumin Level 3.4 g/dL (3.5-5.1); Alkaline Phosphatase 51 U/L (38-126); Anion Gap 3 mmol/L (4-12); Aspartate Amino Transferase 23 U/L (14-36); Bilirubin,Total 1.2 mg/dL (0.2-1.3); Blood Urea Nitrogen 7 mg/dL (7-17); Calcium 8.5 mg/dL (8.4-10.2); Carbon Dioxide 27 mmol/L (22-30); Chloride 109 mmol/L (98-107); Estimated CRCL calculation 95 ml/min; Estimated Glomerular Filt Rate 58; Glucose 134 mg/dL (65-110); Magnesium 2.2 mg/dL (1.6-2.3); Potassium 4.2 mmol/L (3.4-5.0); Sodium 139 mmol/L (137-145)
[2024-09-12 04:27] LABS: Vancomycin Trough 8.6 ug/mL (10.0-20.0)
[2024-09-12] MEDS: PIPERACILLN/TAZ 3.375GM/NS50ML 3.375 GM/50 ML BAG IVPB ×4 (05:01→23:45)
[2024-09-12] MEDS: VANCOMYCIN 2,000 MG/NS 500 ML 2,000 MG/500 ML BAG 125 MG IVPB (05:31)
[2024-09-12 08:12] LABS: Glucose Point of Care 131 mg/dl (65-105)
[2024-09-12] MEDS: ENOXAPARIN 40 MG/0.4 ML SYRINGE SUB-Q (10:04)
[2024-09-12 11:42] LABS: Glucose Point of Care 155 mg/dl (65-105)
--- NOTE | 2024-09-12 12:46 | P.PNIM_ITS ---
Progress Note: A&P Assessment and Plan (1) Severe sepsis: Code(s): A41.9 - Sepsis, unspecified organism; R65.20 - Severe sepsis without septic shock Status: Acute Assessment and Plan: Patient with severe sepsis, likely etiology is wounds, CTA chest abdomen pelvis did not reveal any source of infection. Bilateral lower extremity x-rays did not show any osteomyelitis -patient received a total of 4 L of IV fluids between ER in ICU on empiric vancomycin and zosyn. wound culture and blood culture. Which remains negative to date (2) Sleep apnea: Code(s): G47.30 - Sleep apnea, unspecified Status: Acute Assessment and Plan: CPAP/BiPAP at night or when asleep (3) Diabetes type 2, controlled: Code(s): E11.9 - Type 2 diabetes mellitus without complications Status: Acute Assessment and Plan: Sliding scale insulin and Accu-Cheks (4) Chronic obstructive pulmonary disease: Code(s): J44.9 - Chronic obstructive pulmonary disease, unspecified Status: Acute Assessment and Plan: Continue bronchodilators (5) Chronic wound of extremity: Status: Acute Assessment and Plan: -wound culture -consult wound care team for evaluation and recommendations of wound care -surgery has been consulted -continue antibiotics as above X-rays of bilateral lower extremities did not reveal any osteomyelitis, gas Plan DVT prophylaxis: Lovenox Stress ulcer prophylaxis: Not indicated Nutrition: Diabetic diet Code Status: Full Subjective Date/time seen: 09/12/24 12:46 Interval history: No overnight events. Did not sleep well last night. Blood pressure stable. Denies chest pain or shortness of breath. Legs are wrapped. Review of Systems Review of Systems: All systems reviewed & are unremarkable except as noted in HPI and below Exam Narrative: General: Pleasant female in no acute distress, morbidly obese HEENT:? Pupils equal and reactive Neck:? Thick neck Respiratory:? coarse breath sounds and decreased breath sounds at bases, otherwise clear to auscultation Cardiac:? S1-S2 normal, regular rate and rhythm Abdomen:? Morbidly obese, soft, nontender, distended bowel sounds Extremities:? bilateral pedal pulses are positive Neuro:? Patient is awake, alert, oriented, nonfocal, answers to questions appropriately and follows simple commands in all extremities Skin:? Bilateral lower extremity wounds and blisters, macerated scan, no crepitus currently wrapped with Rachid wrap Psych:? Normal affect, mood and mentation Objective Data Vital Signs Vital Signs: Vital Signs - 24 hr 09/11/24 15:20 09/11/24 17:55 09/11/24 18:01 Temperature 98.0 F Pulse Rate 79 58 L 78 Respiratory Rate 18 20 20 Blood Pressure 134/73 Pulse Oximetry 95 Oxygen Delivery Oxygen Flow Rate Fraction of Inspired Oxygen 09/11/24 20:00 09/11/24 21:23 09/12/24 00:40 Temperature 97.5 F L Pulse Rate 78 88 98 Respiratory Rate 20 20 Blood Pressure 137/79 Pulse Oximetry 95 96 93 Oxygen Delivery Nasal Cannula CPAP Oxygen Flow Rate 3 Fraction of Inspired Oxygen 09/12/24 00:40 09/12/24 06:00 09/12/24 09:06 Temperature 97.1 F L Pulse Rate 84 Respiratory Rate 20 Blood Pressure 114/71 Pulse Oximetry 93 94 92 Oxygen Delivery Nasal Cannula Nasal Cannula Oxygen Flow Rate 3 3 Fraction of Inspired Oxygen 32 Intake/Output Intake/Output: Intake & Output 09/09/24 09/10/24 09/11/24 09/12/24 23:59 23:59 23:59 23:59 Intake Total 3100 4317.5 2730 1580 Output Total 041 463 5942 Balance 2950 3967.5 430 1580 Meds/Results Medications: Active Medications Generic Name Dose Route Start Last Admin Trade Name Freq PRN Reason Stop Dose Admin Acetaminophen 650 mg 09/09/24 22:00 09/12/24 02:36 Acetaminophen 325 Mg Tablet PO 650 mg Q4H PRN Administration Mild Pain (1-3) or Fever Albuterol/Ipratropium 3 ml 09/10/24 11:28 09/11/24 17:55 Ipratropium 0.5 Mg/Albuterol Sulfate 2.5 Mg Ampul.Neb 3 Ml INHALATION 3 ml Q6HRT PRN Administration sob, wheeze Baclofen 10 mg 09/12/24 12:45 Baclofen 10 Mg Tablet PO Q12H CARIE Bumetanide 1 mg 09/13/24 09:00 Bumetanide 1 Mg Tablet PO DAILY CARIE Calcium Carbonate 500 mg 09/12/24 12:45 Calcium/Vitamin D 500 Mg/5 Mcg (200 I.U.) Tablet PO Q12H [facility] Dextrose 12.5 gm 09/10/24 07:43 Dextrose 50% 25 Gm/50 Ml Syringe IV PUSH PRN PRN Hypoglycemia Protocol Diclofenac Sodium applic 09/12/24 12:45 Diclofenac Sodium 1% 100 Gm Gel (*Bkc) TOPICAL QID PRN pain Enoxaparin Sodium 40 mg 09/11/24 09:00 09/12/24 10:04 Enoxaparin 40 Mg/0.4 Ml Syringe SUB-Q 40 mg DAILY CARIE Administration Glucagon 1 mg 09/10/24 07:43 Glucagon For Inj 1 Mg Vial IM PRN PRN Hypoglycemia Protocol Glucose 15 gm 09/10/24 07:43 Glucose Oral Gel 15 Gm Of Glucse In 37.5 Gm Tube PO PRN PRN Hypoglycemia Protocol Piperacillin/Tazobactam/Dextrose 3.375 gm in 50 mls @ 100 mls/hr 09/10/24 07:45 09/12/24 05:31 Zosyn 3.375 Gm/Ns 50 Ml IVPB Infused Q6HR CARIE Infusion Dextrose 1,000 mls @ 100 mls/hr 09/10/24 07:43 Dextrose 5% 1,000 Ml IVPB PRN PRN Hypoglycemia Protocol Vancomycin HCl 2,000 mg in 500 mls @ 250 mls/hr 09/12/24 05:00 09/12/24 09:31 Vancomycin 2,000 Mg/Ns 500 Ml IVPB Infused Q12H CARIE Infusion Insulin Aspart 3 - 6 units 09/12/24 08:00 09/12/24 12:13 Insulin Aspart (*Bkc) 100 Units/Ml SUB-Q Not Given TIDWM [facility] Protocol Insulin Aspart 1 - 3 units 09/11/24 21:00 09/11/24 21:00 Insulin Aspart (*Bkc) 100 Units/Ml SUB-Q Not Given HS [facility] Protocol Metoprolol Succinate 100 mg 09/13/24 09:00 Metoprolol Succinate Ext Rel 100 Mg Tabcr PO DAILY CARIE Non-Formulary Medication 500 mg 09/12/24 12:45 Magnesium Oxide PO 10/12/24 12:44 Q12H CARIE Non-Formulary Medication 500 mg 09/12/24 13:00 Niacinamide PO 10/12/24 12:59 TID CARIE Non-Formulary Medication 200 mg 09/12/24 12:45 Tramadol PO DAILY PRN Pain Non-Formulary Medication 500 mg 09/13/24 09:00 Turmeric Root Extract PO 10/13/24 08:59 DAILY CARIE Non-Formulary Medication 50 mg 09/13/24 09:00 Zinc Acetate PO 10/13/24 08:59 DAILY CARIE Ondansetron HCl 4 mg 09/09/24 22:00 09/11/24 18:28 Ondansetron Inj 4 Mg/2 Ml Vial IV PUSH 4 mg Q4H PRN Administration Nausea Ondansetron HCl 4 mg 09/12/24 12:45 Ondansetron Hcl Odt 4 Mg Tablet PO Q8H PRN nausea and vomiting Radiology Results: ITS Impressions Chest X-Ray 09/09/24 16:33 IMPRESSION: 1. Cardiomegaly. Chest/Abdomen/Pelvis CT 09/09/24 18:43 IMPRESSION: 1. Diffuse hepatic steatosis. 2. Mild retroperitoneal and right pelvic lymphadenopathy, likely reactive. Foot X-Ray 09/09/24 20:06 IMPRESSION: 1. No evidence of osteomyelitis. 2. Mild polyarticular osteoarthritis. Tibia/Fibula X-Ray 09/09/24 20:07 IMPRESSION: 1. No evidence of osteomyelitis. 2. Polyarticular osteoarthritis. Labs Labs: Laboratory Results - last 24 hr 09/11/24 09/11/24 09/12/24 16:36 20:30 03:40 WBC 6.6 RBC 3.90 L Hgb 11.8 L Hct 36.4 L MCV 93.3 MCH 30.3 MCHC 32.4 RDW 15.2 H Plt Count 141 L MPV 10.4 Immature Gran % (Auto) 0.2 Neut % (Auto) 51.1 Lymph % (Auto) 35.6 [place] % (Auto) 10.7 H Eos % (Auto) 1.8 Baso % (Auto) 0.6 Lymph # (Auto) 2.34 [place] # (Auto) 0.7 H Eos # (Auto) 0.1 Baso # (Auto) 0.0 Abs Immat Gran (auto) 0.01 Absolute Neuts (auto) 3.4 Absolute Nucleated RBC 0.000 Nucleated RBC % 0.0 Sodium 139 Potassium 4.2 Chloride 109 H Carbon Dioxide 27 Anion Gap 3 L BUN 7 D Creatinine 1.00 Estim Creat Clear Calc 95 Estimated GFR 58 L Glucose 134 H POC Capillary Glucose 154 H 132 H Calcium 8.5 Magnesium 2.2 Total Bilirubin 1.2 AST 23 ALT 19 Alkaline Phosphatase 51 Total Protein 7.0 Albumin 3.4 L Vancomycin Trough 8.6 L 09/12/24 09/12/24 07:52 11:32 WBC RBC Hgb Hct MCV MCH MCHC RDW Plt Count MPV Immature Gran % (Auto) Neut % (Auto) Lymph % (Auto) [place] % (Auto) Eos % (Auto) Baso % (Auto) Lymph # (Auto) [place] # (Auto) Eos # (Auto) Baso # (Auto) Abs Immat Gran (auto) Absolute Neuts (auto) Absolute Nucleated RBC Nucleated RBC % Sodium Potassium Chloride Carbon Dioxide Anion Gap BUN Creatinine Estim Creat Clear Calc Estimated GFR Glucose POC Capillary Glucose 131 H 155 H Calcium Magnesium Total Bilirubin AST ALT Alkaline Phosphatase Total Protein Albumin Vancomycin Trough
[2024-09-12 16:35] LABS: Glucose Point of Care 136 mg/dl (65-105)
[2024-09-12] MEDS: VANCOMYCIN 2,000 MG/NS 500 ML 2,000 MG/500 ML BAG 250 MG IVPB (17:08)
[2024-09-12 19:46] LABS: Glucose Point of Care 143 mg/dl (65-105)
[2024-09-12] MEDS: MELATONIN 5 MG TABLET PO (20:21)
[2024-09-12] MEDS: BACLOFEN 10 MG TABLET PO (20:21)
[2024-09-12] MEDS: CALCIUM/VITAMIN D 500 MG/5 MCG (200 I.U.) TABLET PO (20:21)
[2024-09-12] MEDS: MAGNESIUM OXIDE 400 MG TABLET PO (20:21)
[2024-09-13] MEDS: PIPERACILLN/TAZ 3.375GM/NS50ML 3.375 GM/50 ML BAG IVPB (05:29)
[2024-09-13] MEDS: ACETAMINOPHEN 325 MG TABLET 650 MG PO (05:36)
[2024-09-13 05:41] VITALS: BP 150/77; PULSE 89; RESP 18; TEMP 36.6; O2SAT 90
[2024-09-13] MEDS: VANCOMYCIN 2,000 MG/NS 500 ML 2,000 MG/500 ML BAG 125 MG IVPB (06:09)
[2024-09-13 06:31] LABS: Basophils Percent Auto 0.5 % (0.2-1.2); Eosinophils Absolute Auto 0.2 K/mm3 (0-0.3); Eosinophils Percent Auto 3.2 % (0-4.4); Hematocrit 38.2 % (37.0-47.0); Hemoglobin 11.8 g/dL (12.0-15.0); Immature Granulocyte Absolute 0.03 K/mm3 (0.00-0.031); Immature Granulocyte Percent A 0.5 % (0-0.5); Lymphocytes Absolute Auto 1.82 K/mm3 (0.9-3.2); Lymphocytes Percent Auto 30.2 % (18.3-44.2); Mean Corpuscular HGB Conc 30.9 g/dl (32-36); Mean Corpuscular Hemoglobin 29.4 pg (26-34); Mean Platelet Volume 10.7 fl (7.4-10.4); Monocytes Absolute Auto 0.7 K/mm3 (0.1-0.6); Monocytes Percent Auto 11.4 % (2.6-8.5); Neutrophils Absolute Auto 3.3 K/mm3 (1.3-6.7); Neutrophils Percent Auto 54.2 % (45.5-73.1); Platelet Count Result 158 k/mm3 (150-375); Red Blood Count 4.02 M/mm3 (4.2-5.4); Red Cell Distribution Width 14.8 % (11.5-14.5)
[2024-09-13 06:51] LABS: Alanine Aminotransferase 20 U/L (6-35); Albumin Level 3.2 g/dL (3.5-5.1); Alkaline Phosphatase 52 U/L (38-126); Anion Gap 5 mmol/L (4-12); Aspartate Amino Transferase 24 U/L (14-36); Bilirubin,Total 1.1 mg/dL (0.2-1.3); Blood Urea Nitrogen 8 mg/dL (7-17); Calcium 8.6 mg/dL (8.4-10.2); Carbon Dioxide 25 mmol/L (22-30); Chloride 111 mmol/L (98-107); Estimated CRCL calculation 65 ml/min; Estimated Glomerular Filt Rate 36; Glucose 154 mg/dL (65-110); Magnesium 2.2 mg/dL (1.6-2.3); Potassium 3.9 mmol/L (3.4-5.0); Sodium 141 mmol/L (137-145)
[2024-09-13 07:18] LABS: Glucose Point of Care 149 mg/dl (65-105)
[2024-09-13 09:34] VITALS: PULSE 88
[2024-09-13] MEDS: ENOXAPARIN 40 MG/0.4 ML SYRINGE SUB-Q (09:34)
[2024-09-13] MEDS: BUMETANIDE 1 MG TABLET PO (09:34)
[2024-09-13] MEDS: MAGNESIUM OXIDE 400 MG TABLET PO ×2 (09:34→21:09)
[2024-09-13] MEDS: BACLOFEN 10 MG TABLET PO ×2 (09:34→21:09)
[2024-09-13] MEDS: METOPROLOL SUCCINATE EXT REL 100 MG TABCR PO (09:34)
[2024-09-13] MEDS: CALCIUM/VITAMIN D 500 MG/5 MCG (200 I.U.) TABLET PO ×2 (09:34→21:09)
[2024-09-13] MEDS: ZINC SULFATE 220 MG CAPSULE PO (09:36)
--- NOTE | 2024-09-13 11:16 | PM.IMPN ---
Progress Note: A&P Assessment and Plan (1) Severe sepsis: Code(s): A41.9 - Sepsis, unspecified organism; R65.20 - Severe sepsis without septic shock Status: Acute Assessment and Plan: Patient with severe sepsis, likely etiology is wounds, CTA chest abdomen pelvis did not reveal any source of infection. Bilateral lower extremity x-rays did not show any osteomyelitis -patient received a total of 4 L of IV fluids between ER in ICU on empiric vancomycin and zosyn. wound culture and blood culture. Which remains negative to date Switch antibiotics to oral (2) Sleep apnea: Code(s): G47.30 - Sleep apnea, unspecified Status: Acute Assessment and Plan: CPAP/BiPAP at night or when asleep (3) Diabetes type 2, controlled: Code(s): E11.9 - Type 2 diabetes mellitus without complications Status: Acute Assessment and Plan: Sliding scale insulin and Accu-Cheks (4) Chronic obstructive pulmonary disease: Code(s): J44.9 - Chronic obstructive pulmonary disease, unspecified Status: Acute Assessment and Plan: Continue bronchodilators (5) Chronic wound of extremity: Status: Acute Assessment and Plan: -wound culture -consult wound care team for evaluation and recommendations of wound care -surgery has been consulted -continue antibiotics as above X-rays of bilateral lower extremities did not reveal any osteomyelitis, gas Plan DVT prophylaxis: Lovenox Stress ulcer prophylaxis: Not indicated Nutrition: Diabetic diet Code Status: Full Subjective Date/time seen: 09/13/24 11:16 Interval history: No overnight events. Leg swelling reported oxygen down to 2 L by nasal cannula. Denies any chest pain. Worked with therapy. Review of Systems Review of Systems: All systems reviewed & are unremarkable except as noted in HPI and below Exam Narrative: General: Pleasant female in no acute distress, morbidly obese HEENT:? Pupils equal and reactive Neck:? Thick neck Respiratory:? coarse breath sounds and decreased breath sounds at bases, otherwise clear to auscultation Cardiac:? S1-S2 normal, regular rate and rhythm Abdomen:? Morbidly obese, soft, nontender, distended bowel sounds Extremities:? bilateral pedal pulses are positive Neuro:? Patient is awake, alert, oriented, nonfocal, answers to questions appropriately and follows simple commands in all extremities Skin:? Bilateral lower extremity wounds and blisters, macerated scan, no crepitus currently wrapped with Rachid wrap Psych:? Normal affect, mood and mentation Objective Data Vital Signs Vital Signs: Vital Signs - 24 hr 09/12/24 14:00 09/12/24 14:22 09/12/24 19:45 Temperature 97.3 F L 98.1 F Pulse Rate 95 89 Respiratory Rate 18 18 Blood Pressure 146/78 H 156/77 H Pulse Oximetry 96 96 Oxygen Delivery Nasal Cannula Oxygen Flow Rate 4 Fraction of Inspired Oxygen 09/12/24 20:00 09/13/24 05:41 09/13/24 09:25 Temperature 97.9 F Pulse Rate 89 89 Respiratory Rate 18 18 Blood Pressure 150/77 H Pulse Oximetry 96 90 Oxygen Delivery Nasal Cannula Nasal Cannula Oxygen Flow Rate 2 2 Fraction of Inspired Oxygen 32 09/13/24 09:34 Temperature Pulse Rate 88 Respiratory Rate Blood Pressure Pulse Oximetry Oxygen Delivery Oxygen Flow Rate Fraction of Inspired Oxygen Intake/Output Intake/Output: Intake & Output 09/10/24 09/11/24 09/12/24 09/13/24 23:59 23:59 23:59 23:59 Intake Total 4317.5 2730 2420 340 Output Total 350 2300 500 200 Balance 3967.5 430 1920 140 Meds/Results Medications: Active Medications Generic Name Dose Route Start Last Admin Trade Name Freq PRN Reason Stop Dose Admin Acetaminophen 650 mg 09/09/24 22:00 09/13/24 05:36 Acetaminophen 325 Mg Tablet PO 650 mg Q4H PRN Administration Mild Pain (1-3) or Fever Albuterol/Ipratropium 3 ml 09/10/24 11:28 09/11/24 17:55 Ipratropium 0.5 Mg/Albuterol Sulfate 2.5 Mg Ampul.Neb 3 Ml INHALATION 3 ml Q6HRT PRN Administration sob, wheeze Baclofen 10 mg 09/12/24 21:00 09/13/24 09:34 Baclofen 10 Mg Tablet PO 10 mg Q12H CARIE Administration Bumetanide 1 mg 09/13/24 09:00 09/13/24 09:34 Bumetanide 1 Mg Tablet PO 1 mg DAILY CARIE Administration Calcium Carbonate 500 mg 09/12/24 21:00 09/13/24 09:34 Calcium/Vitamin D 500 Mg/5 Mcg (200 I.U.) Tablet PO 500 mg Q12H CARIE Administration Dextrose 12.5 gm 09/10/24 07:43 Dextrose 50% 25 Gm/50 Ml Syringe IV PUSH PRN PRN Hypoglycemia Protocol Diclofenac Sodium 1 applic 09/12/24 12:45 Diclofenac Sodium 1% 100 Gm Gel (*Bkc) TOPICAL QID PRN pain Diphenhydramine HCl 25 mg 09/12/24 12:46 09/12/24 20:21 Diphenhydramine Hcl Cap 25 Mg Capsule PO 25 mg Q6H PRN Administration Itching Enoxaparin Sodium 40 mg 09/11/24 09:00 09/13/24 09:34 Enoxaparin 40 Mg/0.4 Ml Syringe SUB-Q 40 mg DAILY CARIE Administration Glucagon 1 mg 09/10/24 07:43 Glucagon For Inj 1 Mg Vial IM PRN PRN Hypoglycemia Protocol Glucose 15 gm 09/10/24 07:43 Glucose Oral Gel 15 Gm Of Glucse In 37.5 Gm Tube PO PRN PRN Hypoglycemia Protocol Piperacillin/Tazobactam/Dextrose 3.375 gm in 50 mls @ 100 mls/hr 09/10/24 07:45 09/13/24 05:59 Zosyn 3.375 Gm/Ns 50 Ml IVPB Infused Q6HR CARIE Infusion Dextrose 1,000 mls @ 100 mls/hr 09/10/24 07:43 Dextrose 5% 1,000 Ml IVPB PRN PRN Hypoglycemia Protocol Vancomycin HCl 2,000 mg in 500 mls @ 250 mls/hr 09/12/24 05:00 09/13/24 06:09 Vancomycin 2,000 Mg/Ns 500 Ml IVPB 125 mls/hr Q12H CARIE Administration Insulin Aspart 3 - 6 units 09/12/24 08:00 09/12/24 16:42 Insulin Aspart (*Bkc) 100 Units/Ml SUB-Q Not Given TIDWM CARIE Protocol Insulin Aspart 1 - 3 units 09/11/24 21:00 09/12/24 20:21 Insulin Aspart (*Bkc) 100 Units/Ml SUB-Q Not Given HS CARIE Protocol Magnesium Oxide 400 mg 09/12/24 21:00 09/13/24 09:34 Magnesium Oxide 400 Mg Tablet PO 400 mg Q12H CARIE Administration Melatonin 5 mg 09/12/24 21:00 09/12/24 20:21 Melatonin 5 Mg Tablet PO 5 mg HS CARIE Administration Metoprolol Succinate 100 mg 09/13/24 09:00 09/13/24 09:34 Metoprolol Succinate Ext Rel 100 Mg Tabcr PO 100 mg DAILY [facility] Administration Miscellaneous Information 1 each 09/12/24 00:01 Tramadol Er Is Nonformulary. We Stock Regular Release Tramadol. Rec Dividing Prn Dose To 1 XX 10/12/24 00:00 [facility]IFY [facility] Miscellaneous Information 1 each 09/12/24 00:01 Niacinamide Is Nonformulary. Can Patient Use Home Supply Or Hold While Hospitalized XX 10/12/24 00:00 [facility] Non-Formulary Medication 500 mg 09/12/24 13:00 Niacinamide PO 10/12/24 12:59 TID [facility] Non-Formulary Medication 200 mg 09/12/24 12:45 Tramadol PO DAILY PRN Pain Turmeric Root 1 each 09/12/24 12:51 Extract 500 Mg XX 09/13/24 12:50 Capsule PRN PRN PROTOCOL Ondansetron HCl 4 mg 09/12/24 12:45 Ondansetron Hcl Odt 4 Mg Tablet PO Q8H PRN nausea and vomiting Zinc Sulfate 220 mg 09/13/24 09:00 09/13/24 09:36 Zinc Sulfate 220 Mg Capsule PO 220 mg QAM [facility] Administration Radiology Results: ITS Impressions Chest X-Ray 09/09/24 16:33 IMPRESSION: 1. Cardiomegaly. Chest/Abdomen/Pelvis CT 09/09/24 18:43 IMPRESSION: 1. Diffuse hepatic steatosis. 2. Mild retroperitoneal and right pelvic lymphadenopathy, likely reactive. Foot X-Ray 09/09/24 20:06 IMPRESSION: 1. No evidence of osteomyelitis. 2. Mild polyarticular osteoarthritis. Tibia/Fibula X-Ray 09/09/24 20:07 IMPRESSION: 1. No evidence of osteomyelitis. 2. Polyarticular osteoarthritis. Labs Labs: Laboratory Results - last 24 hr 09/12/24 09/12/24 09/12/24 11:32 16:29 19:29 WBC RBC Hgb Hct MCV MCH MCHC RDW Plt Count MPV Immature Gran % (Auto) Neut % (Auto) Lymph % (Auto) [place] % (Auto) Eos % (Auto) Baso % (Auto) Lymph # (Auto) [place] # (Auto) Eos # (Auto) Baso # (Auto) Abs Immat Gran (auto) Absolute Neuts (auto) Absolute Nucleated RBC Nucleated RBC % Sodium Potassium Chloride Carbon Dioxide Anion Gap BUN Creatinine Estim Creat Clear Calc Estimated GFR Glucose POC Capillary Glucose 155 H 136 H 143 H Calcium Magnesium Total Bilirubin AST ALT Alkaline Phosphatase Total Protein Albumin 09/13/24 09/13/24 06:09 07:15 WBC 6.0 RBC 4.02 L Hgb 11.8 L Hct 38.2 MCV 95.0 MCH 29.4 MCHC 30.9 L RDW 14.8 H Plt Count 158 MPV 10.7 H Immature Gran % (Auto) 0.5 Neut % (Auto) 54.2 Lymph % (Auto) 30.2 [place] % (Auto) 11.4 H Eos % (Auto) 3.2 Baso % (Auto) 0.5 Lymph # (Auto) 1.82 [place] # (Auto) 0.7 H Eos # (Auto) 0.2 Baso # (Auto) 0.0 Abs Immat Gran (auto) 0.03 Absolute Neuts (auto) 3.3 Absolute Nucleated RBC 0.000 Nucleated RBC % 0.0 Sodium 141 Potassium 3.9 Chloride 111 H Carbon Dioxide 25 Anion Gap 5 BUN 8 Creatinine 1.50 H Estim Creat Clear Calc 65 Estimated GFR 36 L Glucose 154 H POC Capillary Glucose 149 H Calcium 8.6 Magnesium 2.2 Total Bilirubin 1.1 AST 24 ALT 20 Alkaline Phosphatase 52 Total Protein 7.0 Albumin 3.2 L
[2024-09-13 11:42] LABS: Glucose Point of Care 151 mg/dl (65-105)
[2024-09-13 14:00] VITALS: BP 138/66; PULSE 70; RESP 20; O2SAT 98
[2024-09-13] MEDS: AMOXICILLIN/CLAVULANATE K 875-125 MG TAB 1 TABLET PO ×2 (15:25→21:08)
[2024-09-13 16:14] LABS: Glucose Point of Care 162 mg/dl (65-105)
[2024-09-13] MEDS: DOXYCYCLINE HYCLATE 100 MG TABLET PO (18:03)
[2024-09-13 20:15] VITALS: BP 132/64; PULSE 73; RESP 20; TEMP 36.2; O2SAT 98
[2024-09-13 20:16] LABS: Glucose Point of Care 158 mg/dl (65-105)
[2024-09-13] MEDS: diphenhydrAMINE HCl CAP 25 MG CAPSULE PO (21:09)
[2024-09-13] MEDS: MELATONIN 5 MG TABLET PO (21:09)
[2024-09-14 05:28] VITALS: BP 141/72; PULSE 75; RESP 18; TEMP 36.3; O2SAT 96
[2024-09-14 06:02] LABS: Basophils Percent Auto 0.6 % (0.2-1.2); Eosinophils Absolute Auto 0.2 K/mm3 (0-0.3); Eosinophils Percent Auto 3.4 % (0-4.4); Hematocrit 38.4 % (37.0-47.0); Hemoglobin 11.8 g/dL (12.0-15.0); Immature Granulocyte Absolute 0.02 K/mm3 (0.00-0.031); Immature Granulocyte Percent A 0.3 % (0-0.5); Lymphocytes Absolute Auto 2.24 K/mm3 (0.9-3.2); Lymphocytes Percent Auto 32.1 % (18.3-44.2); Mean Corpuscular HGB Conc 30.7 g/dl (32-36); Mean Corpuscular Hemoglobin 29.4 pg (26-34); Mean Corpuscular Volume 95.8 fl (80-100); Mean Platelet Volume 10.5 fl (7.4-10.4); Monocytes Absolute Auto 0.8 K/mm3 (0.1-0.6); Neutrophils Absolute Auto 3.7 K/mm3 (1.3-6.7); Neutrophils Percent Auto 52.6 % (45.5-73.1); Platelet Count Result 183 k/mm3 (150-375); Red Blood Count 4.01 M/mm3 (4.2-5.4); Red Cell Distribution Width 14.9 % (11.5-14.5)
[2024-09-14] MEDS: DOXYCYCLINE HYCLATE 100 MG TABLET PO (06:02)
[2024-09-14 06:20] LABS: Alanine Aminotransferase 21 U/L (6-35); Albumin Level 3.3 g/dL (3.5-5.1); Alkaline Phosphatase 54 U/L (38-126); Anion Gap 3 mmol/L (4-12); Aspartate Amino Transferase 27 U/L (14-36); Bilirubin,Total 0.8 mg/dL (0.2-1.3); Blood Urea Nitrogen 13 mg/dL (7-17); Calcium 8.7 mg/dL (8.4-10.2); Carbon Dioxide 28 mmol/L (22-30); Chloride 111 mmol/L (98-107); Estimated CRCL calculation 52 ml/min; Estimated Glomerular Filt Rate 28; Glucose 139 mg/dL (65-110); Magnesium 2.2 mg/dL (1.6-2.3); Potassium 4.2 mmol/L (3.4-5.0); Sodium 142 mmol/L (137-145)
[2024-09-14 07:07] VITALS: O2SAT 95
[2024-09-14 07:28] LABS: Glucose Point of Care 144 mg/dl (65-105)
[2024-09-14] MEDS: ENOXAPARIN 40 MG/0.4 ML SYRINGE SUB-Q (08:30)
[2024-09-14 08:31] VITALS: PULSE 72
[2024-09-14] MEDS: BACLOFEN 10 MG TABLET PO (08:31)
[2024-09-14] MEDS: METOPROLOL SUCCINATE EXT REL 100 MG TABCR PO (08:31)
[2024-09-14] MEDS: ZINC SULFATE 220 MG CAPSULE PO (08:31)
[2024-09-14] MEDS: AMOXICILLIN/CLAVULANATE K 875-125 MG TAB 1 TABLET PO (08:33)
[2024-09-14] MEDS: CALCIUM/VITAMIN D 500 MG/5 MCG (200 I.U.) TABLET PO (08:33)
[2024-09-14] MEDS: MAGNESIUM OXIDE 400 MG TABLET PO (08:33)
[2024-09-14 09:00] VITALS: O2SAT 94
[2024-09-14 11:28] LABS: Glucose Point of Care 181 mg/dl (65-105)
[2024-09-14 13:26] LABS: Anion Gap 3 mmol/L (4-12); Blood Urea Nitrogen 13 mg/dL (7-17); Calcium 8.6 mg/dL (8.4-10.2); Carbon Dioxide 27 mmol/L (22-30); Chloride 110 mmol/L (98-107); Estimated CRCL calculation 52 ml/min; Estimated Glomerular Filt Rate 28; Glucose 138 mg/dL (65-110); Potassium 4.3 mmol/L (3.4-5.0); Sodium 140 mmol/L (137-145)
--- NOTE | 2024-09-14 13:32 | PM.DS ---
DS: Admitting Diagnosis Discharge Date 09/14/2024 Admitting Diagnosis Sepsis DS: Discharge Diagnosis Discharge Diagnosis (1) Severe sepsis: Code(s): A41.9 - Sepsis, unspecified organism; R65.20 - Severe sepsis without septic shock Status: Acute (2) Sleep apnea: Code(s): G47.30 - Sleep apnea, unspecified Status: Acute (3) Diabetes type 2, controlled: Code(s): E11.9 - Type 2 diabetes mellitus without complications Status: Acute (4) Chronic obstructive pulmonary disease: Code(s): J44.9 - Chronic obstructive pulmonary disease, unspecified Status: Acute (5) Chronic wound of extremity: Status: Acute DS: Summary Hospital Course Hospital Course: This is a 53-year-old female who presented with severe sepsis likely secondary to lower extremity cellulitis/wound. CTA chest abdomen pelvis did not reveal any source of infection. Bilateral lower extremity x-rays did not show any signs of osteomyelitis. Patient was hypotensive on arrival to the ED. She received IV fluid resuscitation was initially admitted to the ICU. She was started on empiric vancomycin and Zosyn. Wound culture and blood culture were obtained which remained negative. General surgery was also consulted who recommended IV antibiotics and no surgical need. She was also seen by wound care team. Her blood pressure improved with treatment. Her antibiotics will be switched to oral antibiotics and will finish the course as an outpatient basis. She will continue wound care at [facility] as previously scheduled. She did have a bump in her creatinine up to 1.9 but had good urine output and was asymptomatic. This is likely related to underlying sepsis versus antibiotics. She will have a follow-up BMP in 1 week and will follow up with PCP. She was evaluated by PT OT during the hospital stay and home health will be arranged at discharge. Time Spent with Patient Time attestation: Total time spent providing and/or coordinating discharge services: 40 minutes Exam Narrative: General: Pleasant female in no acute distress, morbidly obese HEENT:? Pupils equal and reactive Neck:? Thick neck Respiratory:? coarse breath sounds and decreased breath sounds at bases, otherwise clear to auscultation Cardiac:? S1-S2 normal, regular rate and rhythm Abdomen:? Morbidly obese, soft, nontender, distended bowel sounds Extremities:? bilateral pedal pulses are positive Neuro:? Patient is awake, alert, oriented, nonfocal, answers to questions appropriately and follows simple commands in all extremities Skin:? Bilateral lower extremity wounds and blisters, macerated scan, no crepitus currently wrapped with Rachid wrap Psych:? Normal affect, mood and mentation DS: Data Data Completed and Pending Completed studies during hospitalization: Exam Type: CA echo dop color flow w con Study Info Indications - SEVERE SEPSIS Complete two-dimensional, color flow and Doppler transthoracic echocardiogram is performed with contrast to opacify the left ventricle and to improve the deliniation of the left ventricle endocardial borders. Contrast/Agitated Saline Contrast/Ag. Saline: Definity Amount: 2.00 ml Existing IV Access: Yes Reason for Poor Study: patient body habitus Summary 1. Technically suboptimal study due to poor sonographic images. 2. Definity contrast administered improved wall motion interpretation. 3. Left ventricular chamber dimension is normal. 4. Left ventricular systolic function is normal, estimated at 60-65%. 5. The left ventricular diastolic function is normal. 6. E/e' 7 is not elevated. Left Ventricle Technically suboptimal study due to poor sonographic images. E/e' 7 is not elevated. Definity contrast administered improved wall motion interpretation. Left ventricular chamber dimension is normal. Left ventricular systolic function is normal, estimated at 60-65%. The left ventricular diastolic function is normal. Right Ventricle Right ventricular chamber dimension is not well visualized. Left Atria Left atrial chamber dimension is normal. Right Atria Right atrial chamber dimension is not well visualized. Aortic Valve The aortic valve is not well visualized. Cannot determine number of aortic valve leaflets. There is no aortic valve stenosis. There is no aortic valve regurgitation. Pulmonic Valve The pulmonic valve is not well visualized. Mitral Valve The mitral valve has not well visualized. There is no mitral valve stenosis. There is no mitral valve regurgitation. Tricuspid Valve The tricuspid valve leaflets are not well visualized. Pericardium/Pleural There is no pericardial effusion. Inferior Vena Cava Inferior vena cava is not well visualized. Aorta The aortic root size at the sinus of Valsalva is normal. Labs on day of discharge: Labs from last 24 hours 09/14/24 09/14/24 09/14/24 11:23 07:21 05:47 WBC 7.0 RBC 4.01 L Hgb 11.8 L Hct 38.4 MCV 95.8 MCH 29.4 MCHC 30.7 L RDW 14.9 H Plt Count 183 MPV 10.5 H Immature Gran % (Auto) 0.3 Neut % (Auto) 52.6 Lymph % (Auto) 32.1 [place] % (Auto) 11.0 H Eos % (Auto) 3.4 Baso % (Auto) 0.6 Lymph # (Auto) 2.24 [place] # (Auto) 0.8 H Eos # (Auto) 0.2 Baso # (Auto) 0.0 Abs Immat Gran (auto) 0.02 Absolute Neuts (auto) 3.7 Absolute Nucleated RBC 0.000 Nucleated RBC % 0.0 Sodium 142 Potassium 4.2 Chloride 111 H Carbon Dioxide 28 Anion Gap 3 L BUN 13 Creatinine 1.90 H Estim Creat Clear Calc 52 Estimated GFR 28 L Glucose 139 H POC Capillary Glucose 181 H 144 H Calcium 8.7 Magnesium 2.2 Total Bilirubin 0.8 AST 27 ALT 21 Alkaline Phosphatase 54 Total Protein 7.0 Albumin 3.3 L 09/14/24 09/13/24 09/13/24 05:43 20:06 16:10 WBC RBC Hgb Hct MCV MCH MCHC RDW Plt Count MPV Immature Gran % (Auto) Neut % (Auto) Lymph % (Auto) [place] % (Auto) Eos % (Auto) Baso % (Auto) Lymph # (Auto) [place] # (Auto) Eos # (Auto) Baso # (Auto) Abs Immat Gran (auto) Absolute Neuts (auto) Absolute Nucleated RBC Nucleated RBC % Sodium 140 Potassium 4.3 Chloride 110 H Carbon Dioxide 27 Anion Gap 3 L BUN 13 D Creatinine 1.90 H Estim Creat Clear Calc 52 Estimated GFR 28 L Glucose 138 H POC Capillary Glucose 158 H 162 H Calcium 8.6 Magnesium Total Bilirubin AST ALT Alkaline Phosphatase Total Protein Albumin Preliminary micro results at discharge 09/09/24 16:33 Blood Culture - Preliminary Blood 09/09/24 16:42 Blood Culture - Preliminary Blood Imaging Radiologist's impression: ITS Impressions Chest X-Ray 09/09/24 16:33 IMPRESSION: 1. Cardiomegaly. Chest/Abdomen/Pelvis CT 09/09/24 18:43 IMPRESSION: 1. Diffuse hepatic steatosis. 2. Mild retroperitoneal and right pelvic lymphadenopathy, likely reactive. Foot X-Ray 09/09/24 20:02 IMPRESSION: 1. No evidence of osteomyelitis. 2. Mild polyarticular osteoarthritis. Tibia/Fibula X-Ray 09/09/24 20:03 IMPRESSION: 1. No evidence of osteomyelitis. 2. Polyarticular osteoarthritis. Foot X-Ray 09/09/24 20:06 IMPRESSION: 1. No evidence of osteomyelitis. 2. Mild polyarticular osteoarthritis. Tibia/Fibula X-Ray 09/09/24 20:07 IMPRESSION: 1. No evidence of osteomyelitis. 2. Polyarticular osteoarthritis. Discharge Plan Discharge Attending physician on discharge: Jarrod Booker Consulting providers: Raquel Weems; Khurram Madrigal Discharging Clinician: Jarrod Booker Anticipated Discharge Date/Time: 09/14/24 13:35 Patient Disposition: Home Health Service Activity: as tolerated Discharge Instructions: daily dressing changes of xeroform gauze to open wounds, cover wtih ABD pads and roll gauze home oxygen: as per home oxygen evaluation Patient Instructions: Antibiotic Form Patient Language: Mauritian Stand Alone Forms: General Discharge Information Follow-up/Referrals: Fidelina,Dalila Cardoso MD [Primary Care Provider] - 1 Week Discharge Medications: New doxycycline hyclate 100 mg Tablet 100 mg PO Q12H Qty: 11 0RF amoxicillin-pot clavulanate 875-125 mg tablet 1 tablet PO Q12H Qty: 11 0RF Continued doxycycline hyclate 100 mg tablet 100 mg PO DAILY pioglitazone 30 mg tablet 30 mg PO DAILY metoprolol succinate 100 mg tablet extended release 24 hr 100 mg PO DAILY magnesium oxide 500 mg capsule 500 mg PO Q12H baclofen 10 mg tablet 10 mg PO Q12H zinc acetate 50 mg (zinc) capsule 50 mg PO DAILY calcium carbonate-vitamin D3 [Oysco 500/D] 500 mg-5 mcg (200 unit) tablet 1 tablet PO Q12H turmeric root extract 500 mg capsule 500 mg PO DAILY tramadol 200 mg capsule,ER biphase 24 hr 25-75 200 mg PO DAILY PRN (Reason: Pain) prednisone 2.5 mg tablet 2.5 mg PO DAILY niacinamide 500 mg tablet 500 mg PO TID bumetanide 1 mg tablet 1 mg PO DAILY Jardiance 10 mg tablet 10 mg PO DAILY magnesium oxide 400 mg (241.3 mg magnesium) tablet 400 mg PO Q12H hydroxyzine HCl 10 mg tablet fluconazole 100 mg tablet 100 mg PO diclofenac sodium 1 % gel 2 g topical QID PRN (Reason: pain) Rx Instructions: apply to single elbow, wrist or hand; for hand includes palm/fingers/back of hand ondansetron 4 mg tablet,disintegrating 4 mg PO Q8H PRN (Reason: nausea and vomiting) Qty: 60 3RF Discontinued lisinopril 10 mg tablet 10 mg PO DAILY Other Ambulatory Orders: Basic Metabolic Panel (Routine) Timeframe: 1 Week Location: Determined by Patient Ordered By: Jarrod Booker Date of admission: 09/09/24 22:01 Primary Care Provider: Fidelina,Dalila Cardoso Admitting Provider: Jose Bragg V. Attending physician on admission: Jose Bragg V. Condition: Improved
[2024-09-14 14:00] VITALS: BP 140/76; PULSE 94; RESP 20; TEMP 36.6; O2SAT 93
== END 2024-09-14 15:45 | disposition home health service (06) | DRG 872 ==
LOC: ANHED 19:01 → ANHICU 23:10 → ANH3MEDSUR 09-14 13:37 → ANHICU 09-15 15:21
PROVIDERS: Emergency Medicine; Internal Medicine; Admitting Provider Internal Medicine; Emergency Provider Student in an Organized Health Care Education/Training Program; PCP Emergency Medicine; Visit Provider Internal Medicine
DX: A41.9 Sepsis, unspecified organism (principal); L03.116 Cellulitis of left lower limb; L03.115 Cellulitis of right lower limb; L97.219 Non-pressure chronic ulcer of right calf with unspecified severity; L97.229 Non-pressure chronic ulcer of left calf with unspecified severity; Z68.45 Body mass index [BMI] 70 or greater, adult; R65.20 Severe sepsis without septic shock; I87.2 Venous insufficiency (chronic) (peripheral); I10 Essential (primary) hypertension; J44.9 Chronic obstructive pulmonary disease, unspecified; E11.9 Type 2 diabetes mellitus without complications; M17.0 Bilateral primary osteoarthritis of knee; G47.30 Sleep apnea, unspecified; Z20.822 Contact with and (suspected) exposure to COVID-19; Z87.891 Personal history of nicotine dependence
CPT/HCPCS: 36415; 71045; 71250; 73590; 73620; 74176; 80048; 80053; 80202; 81001; 82565; 82948; 83605; 83735; 84100; 85025; 85055; 86140; 87040; 87636; 87641; 93005; 94640; 94664; 96361; 96365; 96366; 96367; 96372; 96375; 96376; 97116; 97161; 97165; 97530; 99285; A9270; C8929; J1650; J1815; J1885; J2405; J2543; J3370; J7030; J7120; P9047; Q9957